=== PATIENT | male | born 1950 | race Caucasian/White ===

== ENCOUNTER → 2020-09-22 10:01 | Outpatient (BNVA) | payer MEDICARE, SELFPAY | PROVIDERS: PCP Nurse Practitioner Family; Visit Provider Nurse Practitioner | CPT/HCPCS: Q3014 ==

== ENCOUNTER 2020-10-08 09:34 | Outpatient (REF) | payer MEDICARE, SELFPAY ==
[2020-10-08 10:03] LABS: MANUAL DIFF FLAG NO
[2020-10-08 10:12] LABS: Basophils Percent Auto 0.6 % (0-2); Eosinophils Absolute Auto 0.2 X10*3/uL (0.0-0.4); Eosinophils Percent Auto 4.5 % (0-4); Hematocrit 28.9 % (42-52); Hemoglobin 9.5 g/dl (14.0-18.0); Imm Gran Abs Auto 0.07 X10*3/uL (0.00-0.03); Imm Gran Pct Auto 1.3 % (0.0-0.4); Lymphocytes Absolute Auto 1.6 X10*3/uL (1.2-4.9); Lymphocytes Percent Auto 29.3 % (20-40); Mean Corpuscular HGB Conc 32.9 g/dl (31.0-36.0); Mean Corpuscular Volume 91.2 fL (80-98); Mean Platelet Volume 10.1 fL (9.4-12.4); Monocytes Absolute Auto 0.4 X10*3/uL (0.1-1.2); Neutrophils Percent Auto 56.3 % (45-73); Platelet Count 149 X10*3/uL (160-400); Red Blood Count 3.17 X10*6/uL (4.60-5.80); Red Cell Distribution Width 13.5 % (11.0-16.0); White Blood Count 5.4 X10*3/uL (4.8-10.8)
[2020-10-08 11:12] LABS: Alanine Aminotransferase 10 U/L (0-40); Albumin Level 3.6 g/dL (3.5-5.0); Alkaline Phosphatase 67 U/L (39-117); Anion Gap 12 (12-20); Aspartate Amino Transferase 10 U/L (5-37); Bilirubin Total 0.3 mg/dL (0.0-1.0); Blood Urea Nitrogen 45 mg/dL (9-16); Calcium 8.1 mg/dL (8.4-10.2); Carbon Dioxide 24 mmol/L (22-29); Chloride 110 mmol/L (96-108); Estimated Glomerular Filt Rate 10; Glucose Random 146 mg/dL (60-115); Potassium 5.8 mmol/L (3.3-5.1); Sodium 140 mmol/L (135-145); Total Protein 6.5 g/dL (6.5-8.0)
== END 2020-10-08 09:35 | disposition home or self-care (01) ==
LOC: HO.LAB 09:34
PROVIDERS: Visit Provider Nurse Practitioner
DX: D12.6 Benign neoplasm of colon, unspecified (principal); Z12.11 Encounter for screening for malignant neoplasm of colon
CPT/HCPCS: 36415; 80053; 85025

== ENCOUNTER 2021-02-17 12:13 | Inpatient (IN) | payer MEDICARE, SELFPAY ==
--- NOTE | ~2021-02-17 | US_ITS ---
EXAMINATION: US RETROPERITONEAL LIMITED (RENAL ONLY) CLINICAL INFORMATION: Acute renal sufficiency assess for hydronephrosis. COMPARISON: None TECHNIQUE: Multiple sonographic views of the kidneys are obtained FINDINGS: RIGHT KIDNEY: 10.5 x 4.7 x 4.4 cm (SAG x AP x TRV). The kidney is normal in size, contour, and echogenicity. Renal cortical thickness is normal. No calculi or focal parenchymal lesions. No hydronephrosis. LEFT KIDNEY: 9.6 x 5.4 x 4.4 cm (SAG x AP x TRV). The kidney is normal in size, contour, and echogenicity. Renal cortical thickness is normal. No calculi or focal parenchymal lesions. No hydronephrosis. US/US renal BI IMPRESSION: Unremarkable renal ultrasound. No obstructive changes seen..
--- NOTE | ~2021-02-17 | US_ITS ---
EXAMINATION: US VENOUS ULTRASOUND WITH DOPPLER LOWER EXTREMITY, BILATERAL CLINICAL INFORMATION: Bilateral lower extremity swelling COMPARISON: None TECHNIQUE: Ultrasound of the deep veins is performed from the hip to the calf with compression sonography and color and pulse Doppler assessment. Spectral analysis with color-flow imaging is performed. FINDINGS: RIGHT: There is normal venous compression and respiratory variation and augmented flow. The visualized common femoral vein, superficial femoral vein, profunda femoral vein, popliteal vein, and the trifurcation region shows no evidence of deep venous thrombosis. There is no significant popliteal fossa cyst. LEFT: In the popliteal vein. There is some echogenic material adjacent to the wall more compatible with some chronic changes with possible calcification rather than acute DVT. The vessel is widely patent and this is not flow-limiting in the least. Otherwise, there are is normal venous compression and respiratory variation and augmented flow present throughout the remainder of the deep venous system. The visualized common femoral vein, superficial femoral vein, profunda femoral vein and the trifurcation region shows no evidence of deep venous thrombosis. There is no significant popliteal fossa cyst. If the patient's symptoms persist, followup ultrasound in 5 days 7 days might be of value to exclude proximal propagation from a non-visualized calf vein. US/US venous duplex LE IMPRESSION: 1. On the right, no DVT demonstrated in the lower extremity. 2. On the left, there is no evidence of acute DVT but there are some chronic mural changes present in the popliteal vein.
--- NOTE | ~2021-02-17 | XR_ITS ---
EXAMINATION: XR CHEST CLINICAL INFORMATION: Lower extremity swelling. Rule out CHF. COMPARISON: September 26, 2017 TECHNIQUE: 2 views of the chest were obtained. FINDINGS: No significant abnormality is noted involving the heart, lungs, mediastinum, bony thorax or soft tissues. XR/XR chest 2V IMPRESSION: No acute disease.
[2021-02-17 12:56] VITALS: BP 152/72; PULSE 64; RESP 18; TEMP 36.8; O2SAT 99; BMI 36.6
[2021-02-17 14:12] LABS: Hemoglobin 9.5 g/dl (14.0-18.0); Mean Corpuscular HGB Conc 33.9 g/dl (31.0-36.0); Mean Corpuscular Hemoglobin 30.5 pg (27.0-33.0); Platelet Count 162 X10*3/uL (160-400); Red Blood Count 3.11 X10*6/uL (4.60-5.80); Red Cell Distribution Width 13.8 % (11.0-16.0); White Blood Count 5.8 X10*3/uL (4.8-10.8)
[2021-02-17 14:50] LABS: Appearance Urine CLEAR; Color Urine YELLOW; Glucose Urine UA NEG (NEG); Leukocyte Esterase Urine NEG (NEG); Nitrite Urine NEG (NEG); Urine Blood TRACE (NEG); Urine Ketones NEG (NEG); Urine Protein 2+ MG/DL (NEG-TRACE)
[2021-02-17 14:50] LABS: Alanine Aminotransferase 8 U/L (0-40); Alkaline Phosphatase 73 U/L (39-117); Anion Gap 14 (12-20); Aspartate Amino Transferase 7 U/L (5-37); Bilirubin Direct 0.2 mg/dL (0.0-0.5); Bilirubin Total 0.5 mg/dL (0.0-1.0); Blood Urea Nitrogen 61 mg/dL (9-16); Calcium 8.8 mg/dL (8.4-10.2); Carbon Dioxide 19 mmol/L (22-29); Chloride 112 mmol/L (96-108); Creatinine Clr Calc Pharmacy 11.4; Estimated Glomerular Filt Rate 8; Glucose Random 136 mg/dL (60-115); Potassium 6.5 mmol/L (3.3-5.1); Sodium 138 mmol/L (135-145); Total Protein 7.1 g/dL (6.5-8.0)
--- NOTE | 2021-02-17 14:52 | ECG_ITS ---
Test Reason : ABNORMAL LABS Blood Pressure : / mmHG Vent. Rate : 069 BPM Atrial Rate : 069 BPM P-R Int : 128 ms QRS Dur : 096 ms QT Int : 402 ms P-R-T Axes : 020 -03 052 degrees QTc Int : 430 ms Normal sinus rhythm Normal ECG When compared with ECG of 15-JUL-2014 09:14, No significant change was found Referred By: Quiana Mcnulty Electronically Signed By:DAWSON MADSEN MD
[2021-02-17 14:56] LABS: RBC Urine 0-2 /HPF (0); Sperm Urine NOTED; WBC Urine 0 /HPF (0-4)
--- NOTE | 2021-02-17 15:09 | ED_ITS ---
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 Per patient he has had some lower extremity swelling and generalized malaise and so had outpatient labs done by his primary care doctor 3 days ago. He was called this morning today and told his labs are abnormal to go to the emergency department. He does have a past medical history of chronic kidney disease and creatinine has been steadily increasing with his last creatinine 5.54 and BUN 45 on 10/08/2020. Patient denies any chest pain, shortness of breath. No urinary symptoms, fevers or chills. Related Data Home Medications Medication Instructions Recorded Confirmed acetaminophen 325 mg tablet 325 mg PO Q4H PRN 09/22/20 02/17/21 albuterol sulfate 90 mcg/actuation 2 puff INHALATION QID PRN 09/22/20 02/17/21 aerosol inhaler amlodipine 10 mg tablet 10 mg PO BEDTIME 09/22/20 02/17/21 aspirin 81 mg tablet,delayed 81 mg PO QAM 09/22/20 02/17/21 release atorvastatin 10 mg tablet 10 mg PO BEDTIME 09/22/20 02/17/21 cholecalciferol (vitamin D3) 50 50 mcg PO DAILY 09/22/20 02/17/21 mcg (2,000 unit) tablet ferrous sulfate 325 mg (65 mg 325 mg PO DAILY 09/22/20 02/17/21 iron) tablet fluticasone propionate 50 2 spray INTRANASAL DAILY PRN 09/22/20 02/17/21 mcg/actuation nasal spray,suspension insulin detemir U-100 100 unit/mL 25 unit SUBCUT BEDTIME 09/22/20 02/17/21 subcutaneous solution losartan 100 mg tablet 100 mg PO DAILY 09/22/20 02/17/21 tamsulosin 0.4 mg capsule 0.4 mg PO BEDTIME 09/22/20 02/17/21 carvedilol 1 tab PO BID 02/17/21 02/17/21 furosemide 1 tab PO QAM 02/17/21 02/17/21 Allergies Allergy/AdvReac Type Severity Reaction Status Date / Time No Known Allergies Allergy Verified 02/17/21 12:56 [No Known Allergies*] Review of Systems Review of Systems: Yes all other systems are reviewed and are negative Constitutional: Constitutional: Reports no additional constitutional complaints, Denies body ache(s), Denies chills, Reports fatigue, Denies fever(s), Denies headache(s) and Denies weakness Eyes: Eyes: Reports no additional eye complaints and Denies change in vision ENT: Reports system reviewed and no additional complaints, except as documented, Denies dizziness, Denies headache(s), Denies nasal congestion, Denies nasal discharge and Denies neck pain Cardiovascular: Cardiovascular: Reports no additional cardiovascular complaints, Denies chest pain, Reports leg edema and Denies dyspnea Respiratory: Respiratory: Reports no additional respiratory complaints, Denies cough and Denies dyspnea Gastrointestinal: Gastrointestinal: Reports no additional gastrointestinal complaints, Denies abdominal pain, Denies diarrhea, Denies nausea and Denies vomiting Genitourinary: Genitourinary: Denies urinary incontinence Musculoskeletal: Musculoskeletal: Reports no additional musculoskeletal complaints, Denies back pain, Denies arthralgias, Denies joint swelling, Denies neck pain, Denies numbness and Denies tingling Integumentary/Breasts: Skin/Breast: Reports system reviewed and no additional complaints, except as docu and Denies rash Neurologic: Reports system reviewed and no additional complaints, except as documented, Denies Abnormal speech present, Denies dizziness, Denies headache(s), Denies numbness, Denies tingling and Denies weakness Endocrine: Endocrine: Reports fatigue PMFSH Past Medical History Attestation statement: The following information was validated with the patient. Source: old records reviewed and nursing notes reviewed Medical History Asthma Diabetes Hypertension Kidney disease Surgical History Hx of colonoscopy Family History Family History Sister Diabetes Social History Social History Alcohol intake: current Alcohol intake frequency: a few times a month Alcohol type: beer Advance Directives: No Advance Directives Information Provided: No Physical Exam Vital Signs: Vital Signs: Last Vital Signs Temp 98.2 F 02/17/21 12:56 Pulse 69 02/17/21 15:34 Resp 16 02/17/21 15:34 BP 162/89 H 02/17/21 15:34 Pulse Ox 99 02/17/21 15:34 Body Mass Index 36.6 Const: General: cooperative, healthy appearing, comfortable and no acute distress Orientation/consciousness: patient oriented x3 Limitations: no limitations HENMT: Head: Yes normal to inspection Ears: hearing grossly normal bilaterally General nose exam: Normal external nose present Face and sinus: Yes normal facial exam Mouth: Normal oral and palatal mucosa present Throat: Yes posterior oropharynx normal Eyes: General: appearance normal, both eyes and all related structures Pupils: Equal, round and reactive pupils present Neck: Neck: Yes normal visual inspection Chest: Chest palpation & inspection: normal inspection of the chest Resp: Effort & Inspection: normal respiratory effort Auscultation: clear to auscultation bilaterally Cardio: Rate: regular rate Rhythm: regular rhythm Peripheral pulses: Peripheral pulses 2+ throughout GI: Inspection: Yes normal to inspection Palpation (GI): Soft to palpation and nontender Auscultation: normal bowel sounds Back/Spine/Pelvis: Thoracic/Lumbar Spine: thoracic and lumbar spine normal to inspection Skin: General skin exam: no rashes or lesions noted Neuro: General: patient oriented x3, no focal motor deficits and normal sensation to monofilament Cranial nerves: Yes Equal, round and reactive pupils present Cognition (Neuro): normal cognition Speech: No Abnormal speech present Gait exam (Neuro): Normal gait present Motor exam (neuro): 5/5 motor strength present throughout Extrem: General: Yes normal to inspection and Yes edema (Bilateral lower extremity swelling, nonpitting) Course Course Course Narrative: 70-year-old male here with abnormal labs with complaints of lower extremity swelling and fatigue for the last few weeks. Patient does have chronic kidney disease with steadily increasing creatinine over the last few years. 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 Ortiz and [facility]. His labs this morning show a creatinine of 6.64 and a BUN of 61 with a potassium of 6.5. Will plan for EKG, chest x-ray, UA, COVID screen. Will give insulin, dextrose, Kayexalate. Discussion with Nephrology will be needed. -anemia at baseline. Second call [phone] to nephrology 1705-spoke to Dr. Haas. Recommended additional 15 g of Kayexalate. Also requesting additional urine studies, renal ultrasound, 80 mg of IV Lasix, 1 L of D5W with 150 mEq of sodium bicarb at 125ml/hr x 1L, re-check BMP w/ coags 7pm. Likely combination worsening renal failure, mildly fluid overloaded however mild acidosis needing treatment. He will follow in AM. Call out to medicine to discuss. [id number] with Dr Felipe for admission. MDM - Recheck/Abnormal Lab/Rx Medical Records Attestation: I reviewed the patient's medical records. Lab Data Attestation: I reviewed the patient's lab results. Result diagrams: 02/17/21 14:04 02/17/21 14:04 Labs: Lab Results 02/17/21 02/17/21 02/17/21 Range/Units 14:04 14:04 14:45 WBC 5.8 (4.8-10.8) X10*3/uL RBC 3.11 L (4.60-5.80) X10*6/uL Hgb 9.5 L (14.0-18.0) g/dl Hct 28.0 L (42-52) % MCV 90.0 (80-98) fL MCH 30.5 (27.0-33.0) pg MCHC 33.9 (31.0-36.0) g/dl RDW 13.8 (11.0-16.0) % Plt Count 162 (160-400) X10*3/uL MPV 10.0 (9.4-12.4) fL Absolute Nucleated RBC 0.000 (0.0-0.012) X10*3/uL Nucleated RBC % (auto) 0.0 (0.0-0.2) /100WBC Sodium 138 (135-145) mmol/L Potassium 6.5 H* (3.3-5.1) mmol/L Chloride 112 H (96-108) mmol/L Carbon Dioxide 19 L (22-29) mmol/L Anion Gap 14 (12-20) BUN 61 H (9-16) mg/dL Creatinine 6.64 H* (0.5-1.4) mg/dL Estim Creat Clear Calc 11.4 Estimated GFR 8 POC Glucose (60-115) mg/dL Random Glucose 136 H (60-115) mg/dL Calcium 8.8 D (8.4-10.2) mg/dL Magnesium (1.6-2.6) mg/dL Total Bilirubin 0.5 (0.0-1.0) mg/dL Direct Bilirubin 0.2 (0.0-0.5) mg/dL AST 7 (5-37) U/L ALT 8 (0-40) U/L Alkaline Phosphatase 73 (39-117) U/L Troponin I High Sens (<3.5-35.0) ng/L B-Natriuretic Peptide (<100) pg/mL Total Protein 7.1 (6.5-8.0) g/dL Albumin 4.0 (3.5-5.0) g/dL Urine Color YELLOW Urine Appearance CLEAR Urine pH 6.0 (5.0-8.0) Ur Specific [place] 1.020 (1.005-1.025) Urine Protein 2+ H (NEG-TRACE) MG/DL Urine Glucose (UA) NEG (NEG) MG/DL Urine Ketones NEG (NEG) MG/DL Urine Blood TRACE (NEG) Urine Nitrite NEG (NEG) Ur Leukocyte Esterase NEG (NEG) Urine RBC 0-2 (0) /HPF Urine WBC 0 (0-4) /HPF Ur Squamous Epith Cells NONE /LPF Urine Bacteria NONE /LPF Urine Sperm NOTED COVID-19 (EDDIE) (Negative) COVID-19 Clin Com 02/17/21 02/17/21 02/17/21 Range/Units 15:24 15:24 15:24 WBC (4.8-10.8) X10*3/uL RBC (4.60-5.80) X10*6/uL Hgb (14.0-18.0) g/dl Hct (42-52) % MCV (80-98) fL MCH (27.0-33.0) pg MCHC (31.0-36.0) g/dl RDW (11.0-16.0) % Plt Count (160-400) X10*3/uL MPV (9.4-12.4) fL Absolute Nucleated RBC (0.0-0.012) X10*3/uL Nucleated RBC % (auto) (0.0-0.2) /100WBC Sodium (135-145) mmol/L Potassium (3.3-5.1) mmol/L Chloride (96-108) mmol/L Carbon Dioxide (22-29) mmol/L Anion Gap (12-20) BUN (9-16) mg/dL Creatinine (0.5-1.4) mg/dL Estim Creat Clear Calc Estimated GFR POC Glucose (60-115) mg/dL Random Glucose (60-115) mg/dL Calcium (8.4-10.2) mg/dL Magnesium 1.8 (1.6-2.6) mg/dL Total Bilirubin (0.0-1.0) mg/dL Direct Bilirubin (0.0-0.5) mg/dL AST (5-37) U/L ALT (0-40) U/L Alkaline Phosphatase (39-117) U/L Troponin I High Sens 15.7 (<3.5-35.0) ng/L B-Natriuretic Peptide 168 H (<100) pg/mL Total Protein (6.5-8.0) g/dL Albumin (3.5-5.0) g/dL Urine Color Urine Appearance Urine pH (5.0-8.0) Ur Specific [place] (1.005-1.025) Urine Protein (NEG-TRACE) MG/DL Urine Glucose (UA) (NEG) MG/DL Urine Ketones (NEG) MG/DL Urine Blood (NEG) Urine Nitrite (NEG) Ur Leukocyte Esterase (NEG) Urine RBC (0) /HPF Urine WBC (0-4) /HPF Ur Squamous Epith Cells /LPF Urine Bacteria /LPF Urine Sperm COVID-19 (EDDIE) Negative (Negative) COVID-19 Clin Com See Note 02/17/21 02/17/21 Range/Units 15:56 16:26 WBC (4.8-10.8) X10*3/uL RBC (4.60-5.80) X10*6/uL Hgb (14.0-18.0) g/dl Hct (42-52) % MCV (80-98) fL MCH (27.0-33.0) pg MCHC (31.0-36.0) g/dl RDW (11.0-16.0) % Plt Count (160-400) X10*3/uL MPV (9.4-12.4) fL Absolute Nucleated RBC (0.0-0.012) X10*3/uL Nucleated RBC % (auto) (0.0-0.2) /100WBC Sodium (135-145) mmol/L Potassium (3.3-5.1) mmol/L Chloride (96-108) mmol/L Carbon Dioxide (22-29) mmol/L Anion Gap (12-20) BUN (9-16) mg/dL Creatinine (0.5-1.4) mg/dL Estim Creat Clear Calc Estimated GFR POC Glucose 144 H 79 (60-115) mg/dL Random Glucose (60-115) mg/dL Calcium (8.4-10.2) mg/dL Magnesium (1.6-2.6) mg/dL Total Bilirubin (0.0-1.0) mg/dL Direct Bilirubin (0.0-0.5) mg/dL AST (5-37) U/L ALT (0-40) U/L Alkaline Phosphatase (39-117) U/L Troponin I High Sens (<3.5-35.0) ng/L B-Natriuretic Peptide (<100) pg/mL Total Protein (6.5-8.0) g/dL Albumin (3.5-5.0) g/dL Urine Color Urine Appearance Urine pH (5.0-8.0) Ur Specific [place] (1.005-1.025) Urine Protein (NEG-TRACE) MG/DL Urine Glucose (UA) (NEG) MG/DL Urine Ketones (NEG) MG/DL Urine Blood (NEG) Urine Nitrite (NEG) Ur Leukocyte Esterase (NEG) Urine RBC (0) /HPF Urine WBC (0-4) /HPF Ur Squamous Epith Cells /LPF Urine Bacteria /LPF Urine Sperm COVID-19 (EDDIE) (Negative) COVID-19 Clin Com Imaging Data Chest x-ray: Attestation: I personally reviewed and interpreted this imaging study as follows: Radiologist's impression: [address] [id number] ReportSigned Patient: Tato Montanez#: [id number]: 1950cct:[id number]/Sex: 70 / MADM Date: 02/17/21Loc: EDA[address] Dr: Ordering Physician: JOANNA ACHARYA NP Date of Service: 02/17/21 Procedure(s): XR chest 2V Accession Number(s): [id number] cc: JOANNA ACHARYA NP~ EXAMINATION: XR CHEST CLINICAL INFORMATION: Lower extremity swelling. Rule out CHF. COMPARISON: September 26, 2017 TECHNIQUE: 2 views of the chest were obtained. FINDINGS: No significant abnormality is noted involving the heart, lungs, mediastinum, bony thorax or soft tissues. XR/XR chest 2V IMPRESSION: No acute disease. ECG Data Attestation: I personally reviewed and interpreted this ECG as follows: ECG interpretation date: 02/17/21 ECG interpretation time: 15:43 Interpretation: Normal sinus rhythm with a rate of 69, normal WI, normal QRS, QT Discharge Plan Discharge Clinical Impression: Acute on chronic kidney failure, Acute hyperkalemia, Anemia Patient Disposition: Admitted As Inpatient
[2021-02-17] MEDS: Insulin Regular, Human 100 UNIT/ML 3 ML VIAL 10 UNIT IVPUSH (15:25)
[2021-02-17] MEDS: Sodium Polystyrene Sulfon/Sorb 15 GM/60 ML ORAL.SUSP 30 GM PO (15:28)
[2021-02-17 15:34] VITALS: BP 162/89; PULSE 69; RESP 16; O2SAT 99
--- NOTE | 2021-02-17 15:49 | PHA.MEDREC ---
Pharmacy Consult ? Medication Reconciliation Pharmacy has completed the medication reconciliation.
[2021-02-17 15:59] LABS: Glucose, Whole Blood 144 mg/dL (60-115)
[2021-02-17 16:08] LABS: Magnesium 1.8 mg/dL (1.6-2.6)
[2021-02-17 16:10] LABS: COVID-19 Test Negative (Negative)
[2021-02-17 16:14] LABS: B Type Natriuretic Peptide 168 pg/mL (<100); Troponin-I High Sensitivity 15.7 ng/L (<3.5-35.0)
[2021-02-17 17:02] LABS: Glucose, Whole Blood 79 mg/dL (60-115)
[2021-02-17] MEDS: Furosemide 100 MG/10 ML VIAL 80 MG IVPUSH (17:57)
[2021-02-17] MEDS: Sodium Polystyrene Sulfon/Sorb 15 GM/60 ML ORAL.SUSP PO (17:58)
[2021-02-17] MEDS: Sodium Bicarbonate 8.4% 150 MEQ in Dextrose 5 % 850 ML 125 MEQ IV (18:00)
[2021-02-17 18:22] LABS: Glucose, Whole Blood 129 mg/dL (60-115)
[2021-02-17 18:39] LABS: Creatinine Urine 73.81 mg/dL
[2021-02-17 18:48] VITALS: BP 141/81; PULSE 68; RESP 16; TEMP 36.6; O2SAT 99
[2021-02-17 18:52] LABS: Total Protein Urine Random 225 mg/dL (<12)
[2021-02-17 18:59] LABS: Prothrombin Time 11.4 SEC (9.9-13.0)
[2021-02-17 19:02] LABS: Partial Thromboplastin Time 31.3 SEC (24.1-38.0)
[2021-02-17 19:21] LABS: Anion Gap 13 (12-20); Blood Urea Nitrogen 63 mg/dL (9-16); Calcium 8.8 mg/dL (8.4-10.2); Carbon Dioxide 21 mmol/L (22-29); Chloride 110 mmol/L (96-108); Creatinine Clr Calc Pharmacy 10.8; Estimated Glomerular Filt Rate 8; Glucose Random 136 mg/dL (60-115); Sodium 138 mmol/L (135-145)
[2021-02-17 19:22] LABS: Troponin-I High Sensitivity 14.7 ng/L (<3.5-35.0)
[2021-02-17 19:35] VITALS: BP 170/80; PULSE 76; RESP 16; O2SAT 98
[2021-02-17 19:53] VITALS: BP 168/85; PULSE 70; RESP 14; TEMP 36.3; O2SAT 99
[2021-02-17 21:03] VITALS: BP 150/82; PULSE 71; RESP 15; TEMP 36.8; O2SAT 99
--- NOTE | 2021-02-17 21:12 | PM.IMHP ---
History of Present Illness Date of Service: 02/17/21 Chief Complaint: Generalized weakness 70-year-old male with a past medical history of hypertension, hyperlipidemia, diabetes, chronic kidney disease, perform neuropathy, presented to the hospital with a chief complaint of generalized weakness. Patient reported that for the past few weeks he has been having generalized weakness and also noted to have swelling in his legs. Reports intermittent dizziness. Patient reported that he had routine blood work done today in the clinic; noted to have elevated potassium and subsequently sent to the hospital for further evaluation. Denies any chest pain or palpitations. Denies any numbness tingling. Denies any fever chills cough. Denies any recent travel or sick sick contacts. Review of all other systems is negative except mentioned above ER course: ER team noted the patient had potassium of 6.0 and creatinine of 6.94; ER team spoke to Nephrology- Dr. Haas. Recommended additional 15 g of Kayexalate. Also requesting additional urine studies, renal ultrasound, 80 mg of IV Lasix, 1 L of D5W with 150 mEq of sodium bicarb at 125ml/hr x 1L. Admitted to the hospital for [facility] Medical History Asthma Diabetes Hypertension Kidney disease Family History Sister Diabetes Surgical History Hx of colonoscopy Social History Household Members: Friend(s) Housing: Apartment Do you presently have visiting nurse or other home services: No Alcohol intake: current Alcohol intake frequency: a few times a month Alcohol type: beer Patient Tobacco Use Status: Never used Tobacco e-Cigarette/Vaping Use: Never Used service: No Current occupational status: unemployed Meds Allergies Allergy/AdvReac Type Severity Reaction Status Date / Time No Known Allergies Allergy Verified 02/17/21 12:56 [No Known Allergies*] Active Medications: Current Medications Generic Name Dose Route Start Last Admin Trade Name Freq PRN Reason Stop Dose Admin Carvedilol 12.5 mg 02/18/21 09:00 Carvedilol 12.5 Mg Tablet PO BID MAYA Protocol Sodium Bicarbonate 150 meq/ 1,000 mls @ 125 mls/hr 02/17/21 18:00 02/17/21 18:00 Dextrose IV 02/18/21 01:59 125 mls/hr .Q8H ONE Administration Melatonin 6 mg 02/17/21 21:07 Melatonin 3 Mg Tablet PO BEDTIME PRN Insomnia Pharmacy Consult 1 each 02/17/21 15:08 Consult Rx Perform Med Rec MISCELLANE ONCE PRN Consult order Senna 17.2 mg 02/17/21 21:07 Sennosides 8.6 Mg Tablet PO BEDTIME PRN Constipation Sodium Chloride 3 ml 02/18/21 00:00 0.9 % Sodium Chloride Flush 3 Ml Syringe IVFLUSH QSHIFT [facility] Home Medications Medication Instructions Recorded Confirmed Last Taken Type furosemide 40 mg tablet 1 tab PO QAM 02/17/21 02/17/21 02/17/21 History Physical Exam Vital Signs and Narrative: Vital Signs: Last Vital Signs Temp 97.4 F 02/17/21 19:53 Pulse 70 02/17/21 19:53 Resp 14 02/17/21 19:53 BP 168/85 H 02/17/21 19:53 Pulse Ox 99 02/17/21 19:53 Body Mass Index 36.6 Gen: Appears be in no acute distress HEENT: NCAT, Moist mucosa. Pulmonary: Vesicular breath sounds, fair air entry CVS: Normal S1-S2 Abdomen: BS+, Soft, Nontender Extremities: Warm well perfused; 3+ pitting edema noted Neuro: Alert and awake. Results Labs CBC and Chem 7: 02/20/21 05:55 02/20/21 05:55 Labs: Laboratory Results - last 24 hr 02/17/21 02/17/21 02/17/21 14:04 14:04 14:45 MCV 90.0 MCH 30.5 MCHC 33.9 RDW 13.8 Plt Count 162 MPV 10.0 Absolute Nucleated RBC 0.000 Nucleated RBC % (auto) 0.0 PT INR APTT Anion Gap 14 Estim Creat Clear Calc 11.4 Estimated GFR 8 POC Glucose Random Glucose 136 H Calcium 8.8 D Magnesium Total Bilirubin 0.5 Direct Bilirubin 0.2 AST 7 ALT 8 Alkaline Phosphatase 73 Troponin I High Sens B-Natriuretic Peptide Total Protein 7.1 Albumin 4.0 Urine Color YELLOW Urine Appearance CLEAR Urine pH 6.0 Ur Specific [place] 1.020 Urine Protein 2+ H Urine Glucose (UA) NEG Urine Ketones NEG Urine Blood TRACE Urine Nitrite NEG Ur Leukocyte Esterase NEG Urine RBC 0-2 Urine WBC 0 Ur Squamous Epith Cells NONE Urine Bacteria NONE Urine Sperm NOTED U Random Total Protein Ur Random Sodium Urine Creatinine COVID-19 (EDDIE) COVID-19 Clin Com 02/17/21 02/17/21 02/17/21 15:24 15:24 15:24 MCV MCH MCHC RDW Plt Count MPV Absolute Nucleated RBC Nucleated RBC % (auto) PT INR APTT Anion Gap Estim Creat Clear Calc Estimated GFR POC Glucose Random Glucose Calcium Magnesium 1.8 Total Bilirubin Direct Bilirubin AST ALT Alkaline Phosphatase Troponin I High Sens 15.7 B-Natriuretic Peptide 168 H Total Protein Albumin Urine Color Urine Appearance Urine pH Ur Specific [place] Urine Protein Urine Glucose (UA) Urine Ketones Urine Blood Urine Nitrite Ur Leukocyte Esterase Urine RBC Urine WBC Ur Squamous Epith Cells Urine Bacteria Urine Sperm U Random Total Protein Ur Random Sodium Urine Creatinine COVID-19 (EDDIE) Negative COVID-19 Clin Com See Note 02/17/21 02/17/21 02/17/21 15:56 16:26 18:08 MCV MCH MCHC RDW Plt Count MPV Absolute Nucleated RBC Nucleated RBC % (auto) PT INR APTT Anion Gap Estim Creat Clear Calc Estimated GFR POC Glucose 144 H 79 Random Glucose Calcium Magnesium Total Bilirubin Direct Bilirubin AST ALT Alkaline Phosphatase Troponin I High Sens B-Natriuretic Peptide Total Protein Albumin Urine Color Urine Appearance Urine pH Ur Specific [place] Urine Protein Urine Glucose (UA) Urine Ketones Urine Blood Urine Nitrite Ur Leukocyte Esterase Urine RBC Urine WBC Ur Squamous Epith Cells Urine Bacteria Urine Sperm U Random Total Protein 225 H Ur Random Sodium 60.0 Urine Creatinine 73.81 COVID-19 (EDDIE) COVID-19 Clin Com 02/17/21 02/17/21 02/17/21 18:18 18:47 18:47 MCV MCH MCHC RDW Plt Count MPV Absolute Nucleated RBC Nucleated RBC % (auto) PT 11.4 INR 1.0 APTT 31.3 Anion Gap Estim Creat Clear Calc Estimated GFR POC Glucose 129 H Random Glucose Calcium Magnesium Total Bilirubin Direct Bilirubin AST ALT Alkaline Phosphatase Troponin I High Sens 14.7 B-Natriuretic Peptide Total Protein Albumin Urine Color Urine Appearance Urine pH Ur Specific [place] Urine Protein Urine Glucose (UA) Urine Ketones Urine Blood Urine Nitrite Ur Leukocyte Esterase Urine RBC Urine WBC Ur Squamous Epith Cells Urine Bacteria Urine Sperm U Random Total Protein Ur Random Sodium Urine Creatinine COVID-19 (EDDIE) COVID-19 Clin Com 02/17/21 18:47 MCV MCH MCHC RDW Plt Count MPV Absolute Nucleated RBC Nucleated RBC % (auto) PT INR APTT Anion Gap 13 Estim Creat Clear Calc 10.8 Estimated GFR 8 POC Glucose Random Glucose 136 H Calcium 8.8 Magnesium Total Bilirubin Direct Bilirubin AST ALT Alkaline Phosphatase Troponin I High Sens B-Natriuretic Peptide Total Protein Albumin Urine Color Urine Appearance Urine pH Ur Specific [place] Urine Protein Urine Glucose (UA) Urine Ketones Urine Blood Urine Nitrite Ur Leukocyte Esterase Urine RBC Urine WBC Ur Squamous Epith Cells Urine Bacteria Urine Sperm U Random Total Protein Ur Random Sodium Urine Creatinine COVID-19 (EDDIE) COVID-19 Clin Com Imaging Radiologist's Impressions: Impressions Chest X-Ray 02/17/21 15:22 IMPRESSION: No acute disease. Renal Ultrasound 02/17/21 17:28 IMPRESSION: Unremarkable renal ultrasound. No obstructive changes seen.. Assessment and Plan (1) Acute hyperkalemia: Status: Acute 70-year-old male with a past medical history of hypertension, diabetes, chronic kidney disease, asthma presented to the hospital with a chief complaint of abnormal labs, noted to have elevated potassium on the routine labs done this morning; sent to the ER for further evaluation. Patient complains of generalized weakness and peripheral edema. Generalized weakness: Likely the setting of worsening renal function. Supportive care. hyperkalemia: EKG showed no changes. Patient received insulin dextrose and Kayexalate; also has sodium bicarb running. Will repeat BMP. Felipe on CKD: Patient has several questions gradually worsening. Nephrology consult was made aware. Peripheral edema: Patient reports gradually worsening bilateral pedal edema for the past few weeks. Likely in setting of renal disease. Will also obtain echocardiogram. Diabetes: Insulin sliding scale DVT prophylaxis:[facility] Code status: full code Home medications: Patient unsure of his home medication regimen. Will defer to the a.m. team to confirm the home medications with the patient's PCP. Quality Stroke Does the patient have a stroke diagnosis?: No VTE Prior VTE?: No VTE Risk Level:: Medical - moderate - high VTE Device Contraindication: N/A - Device Ordered VTE Drug Contraindication: Treatment Not Indicated
[2021-02-17 21:57] LABS: Anion Gap 15 (12-20); Blood Urea Nitrogen 61 mg/dL (9-16); Calcium 8.8 mg/dL (8.4-10.2); Carbon Dioxide 20 mmol/L (22-29); Chloride 110 mmol/L (96-108); Creatinine Clr Calc Pharmacy 10.9; Estimated Glomerular Filt Rate 8; Glucose Random 150 mg/dL (60-115); Potassium 5.1 mmol/L (3.3-5.1); Sodium 140 mmol/L (135-145)
[2021-02-17] MEDS: Heparin Sodium,Porcine 5,000 UNIT/ML VIAL 5000 UNIT SUBCUT (22:51)
[2021-02-18] VITALS (8 sets, daily range): BP systolic 154–183; BP diastolic 72–84; PULSE 70–80; RESP 12–18; TEMP 36.1–36.7; O2SAT 93–100; BMI 36.6
--- NOTE | 2021-02-18 00:05 | CONS_ITS ---
DATE OF SERVICE: REASON FOR CONSULTATION: Consult requested by the Emergency Room team to evaluate and help in management of patient with severe renal insufficiency and hyperkalemia. HISTORY OF PRESENT ILLNESS: The patient is a 70-year-old male with past medical history of chronic kidney disease stage 3/4, baseline history of asthma, noninsulin dependent diabetes mellitus,, who presented to the hospital with complaints of generalized weakness. He also had abnormal labs, which was done by the PCP. The patient complained of lower extremity edema and generalized malaise. The patient had labs 3 days ago, but was called this morning and was advised to go into the ER. Creatinine has been steadily decreasing with the last creatinine in September around 5.5. 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 He did not have any urinary symptoms, fever, or chills. He did not have any history of NSAID use. Has no prostate problems. No dysuria, urgency of urination, and frequent urination. REVIEW OF SYSTEMS: As noted above. Other system are reviewed negative. MEDICATIONS: At home include atorvastatin, cholecalciferol, Tylenol, albuterol, amlodipine, ferrous sulfate, fluticasone spray, insulin, losartan 100 mg daily, Flomax 0.4 mg at bedtime, carvedilol, furosemide. ALLERGIES: PATIENT HAS NO KNOWN DRUG ALLERGIES. PERSONAL AND SOCIAL HISTORY: The patient currently takes alcohol frequently, does not smoke. FAMILY HISTORY: History of diabetes. PAST SURGICAL HISTORY: History of colonoscopy in the past. PHYSICAL EXAMINATION: GENERAL: Patient is seen resting in the ER bed. Awake, alert, no significant distress. Able to ambulate. VITAL SIGNS: Blood pressure 162/89, pulse 69, afebrile. HEENT: Pupils equal bilaterally and reactive to light. Positive jugular venous distention is noted. Neck was supple. No thyromegaly was noted. Mucosa was moist. There is no scleral icterus or conjunctival congestion. CARDIOVASCULAR SYSTEM: S1, S2 without rub or murmur. RESPIRATORY SYSTEM: Air entry decreased in bases with basilar crepitation. ABDOMEN: Obese, soft. Bowel sounds normal. EXTREMITIES: 2+ edema bilaterally. There is no peripheral cyanosis or clubbing. NEURO: Essentially nonfocal. LABS: Done today: WBC is 5.8, hemoglobin 9.5, hematocrit 28, platelets 162. INR 1.0. Sodium 138, potassium 6.0, chloride 110, CO2 of 21, BUN 63, creatinine 6.95. Estimated GFR was 10.8, glucose 136, calcium 8.8. Troponin 14.4. Urinalysis shows yellow urine is clear, specific gravity 1.020, pH 6.0, protein 2+, glucose negative, ketone negative, rbc's 0 to 2, wbc 0. COVID testing is negative. IMPRESSION: 1. 70-year-old male with acute kidney injury superimposed on chronic kidney disease versus progressive chronic kidney disease. Review of patient's lab shows patient's creatinine has been as high as 3.28 in 2018. In September, his creatinine was 4.20 and presently around 6.95. Obstruction needs to be ruled out on this patient. I doubt the patient has acute GN/interstitial disease at this juncture. 2. Likely chronic kidney disease stage 4 at baseline in the setting of longstanding diabetes and hypertension. 3. Hyperkalemia due to acute kidney injury, chronic kidney disease, use of angiotensin receptor jone losartan, probably high potassium diet. 4. Mild metabolic acidosis, which is non anion gap type in the setting of renal failure. 5. Type 2 diabetes mellitus. 6. Hypertension. RECOMMENDATIONS: patient is hyperkalemic and I agree with medical management for his hyperkalemia. I suggested the ER team to start the patient on IV fluids, D5 water with 150 mEq of sodium bicarb at 125 mL/h x1 L, which will help with improving the hyperkalemia and the acidosis. I have also advised them to give 1 dose of IV Lasix 80 mg IV push to help with volume reduction. I have advised the ER team to get a renal ultrasound to assess size of the kidney and to rule out obstruction. I recommend holding off on losartan given worsening renal function. He can use amlodipine, hydralazine, and clonidine patch as needed. I would continue the present dose of Flomax. If the patient's renal function does not improve in the next 24 to 48 hours, we need to consider starting him on renal replacement therapy. Thank you for allowing me to participate in medical management of the patient. MD BARBRA Marti/MONA / [id number] [facility] CENTERAnali
[2021-02-18] MEDS: 0.9 % Sodium Chloride Flush 3 ML SYRINGE IVFLUSH ×3 (02:28→21:01)
[2021-02-18] MEDS: Heparin Sodium,Porcine 5,000 UNIT/ML VIAL 5000 UNIT SUBCUT ×3 (06:39→21:00)
[2021-02-18 06:43] LABS: MANUAL DIFF FLAG NO
[2021-02-18 06:55] LABS: Basophils Percent Auto 0.6 % (0-2); Eosinophils Absolute Auto 0.2 X10*3/uL (0.0-0.4); Eosinophils Percent Auto 4.4 % (0-4); Hematocrit 27.2 % (42-52); Hemoglobin 9.2 g/dl (14.0-18.0); Imm Gran Abs Auto 0.05 X10*3/uL (0.00-0.03); Lymphocytes Absolute Auto 1.2 X10*3/uL (1.2-4.9); Lymphocytes Percent Auto 22.1 % (20-40); Mean Corpuscular HGB Conc 33.8 g/dl (31.0-36.0); Mean Corpuscular Hemoglobin 30.3 pg (27.0-33.0); Mean Corpuscular Volume 89.5 fL (80-98); Mean Platelet Volume 10.4 fL (9.4-12.4); Monocytes Absolute Auto 0.4 X10*3/uL (0.1-1.2); Monocytes Percent Auto 7.7 % (2-11); Neutrophils Absolute Auto 3.4 X10*3/uL (2.0-8.3); Neutrophils Percent Auto 64.2 % (45-73); Platelet Count 152 X10*3/uL (160-400); Red Blood Count 3.04 X10*6/uL (4.60-5.80); Red Cell Distribution Width 13.8 % (11.0-16.0); White Blood Count 5.2 X10*3/uL (4.8-10.8)
[2021-02-18 07:18] LABS: Anion Gap 13 (12-20); Blood Urea Nitrogen 60 mg/dL (9-16); Calcium 8.6 mg/dL (8.4-10.2); Carbon Dioxide 23 mmol/L (22-29); Chloride 109 mmol/L (96-108); Creatinine Clr Calc Pharmacy 11.3; Estimated Glomerular Filt Rate 8; Glucose Random 132 mg/dL (60-115); Sodium 140 mmol/L (135-145)
--- NOTE | 2021-02-18 07:30 | CA_ITS ---
Transthoracic Echocardiogram Patient (Last, First, Middle): Babatunde Montanez, Gender: Male Date of : 1950 Age: 70 Procedure Date: 02/18/2021 Procedure Type: Transthoracic Echocardiogram Location: [facility] Height: 165.1 cm Weight: 99.79 kg BSA: 2.06 m2 Heart Rate: bpm BP: 154 / 72 mmHg Special Library Librarian: Referring MD: Dom Dailey MD Quantitative Researcher: Lang Mcdonald MD Symptoms: pedal edema Study Quality: Fair ECG Rhythm: Sinus Conclusions: - 1. Normal LV systolic function with impaired relaxation filling pressure with regional wall motion abnormality 2. Mild mitral regurgitation 3. Normal RV systolic pressure 4. No pericardial effusion Findings Procedure Information Contrast agent, definity, is being given per protocol without apparent complications. The patient receives contrast. Left Ventricle Normal left ventricular size, thickness, and systolic function. The visually estimated ejection fraction is between 60-65%. Spectral Doppler is indicative of an impaired relaxation filling pattern. E/E prime ratio is between 8 and 15 consistent with indeterminate filling pressures. Wall Motion Rest Echo Findings The basal inferior and basal inferoseptal segments are hypokinetic. All other scored wall segments showed normal motion. Right Ventricle Normal right ventricular cavity size and systolic function. Atria The left atrium is mildly dilated. The right atrium is normal in size. Aortic Valve Normal aortic valve structure and function. There is no aortic valve stenosis. There is no aortic valve regurgitation. Mitral Valve There is mild posterior mitral leaflet thickening. There is mild mitral valve regurgitation. There is no mitral valve stenosis. Pulmonic Valve The pulmonic valve was not well visualized. Tricuspid Valve Likely normal tricuspid valve structure and function. There is trace tricuspid valve regurgitation. The right ventricular systolic pressure is normal. The right ventricular systolic pressure is 28 mmHg. Normal right atrial pressure. There is no evidence of pulmonary hypertension. Great Vessels All visible segments of the aorta are normal in size. The pulmonary artery was not well visualized. Venous The inferior vena cava is normal in size and collapses greater than 50% with inspiration. Pericardium/Pleural There is no evidence of pericardial effusion. Prior Study Comparison No prior study available for comparison. Measurements 2D Linear Measurements IVSd: 1.32 0.6-0.9/0.6-1.0 cm LVIDd: 6.06 3.9-5.3/4.2-5.9 cm LVIDd Index: 2.94 2.4-3.2/2.2-3.1 cm/m2 LVIDs: 4.65 2.0-3.6 cm LVPWd: 1.26 0.7-1.1 cm Ao Root: 3.50 2.1-3.5 cm LA Diam: 4.50 2.7-3.8/3.0-4.0 cm LAIDs Index: 2.18 1.5-2.3 cm/m2 LV Mass: 439.32 67-162/88-224 g LV Mass Index: 213.26 43-95/49-115 g/m2 LVOT Diam: 2.20 3.0+(-)1.3 cm 2D Systolic Function EF 4C: 59.60 >55% EF 2C: 63.70 >55% EF BiP: 63.50 >55% Mitral Valve MV Pk E: 0.83 MV PK A: 1.07 MV Decel Time: 249.00 E/A: 0.80 E'Lateral: 8.05 E'Medial: 4.90 E/E' Med: 17.00 E/E' Lat: 10.30 PHT: 73.00 MVA PHT: 3.01 Decel [place]: 3.33 Aortic Valve AoV Pk [place]: 1.65 AoV Mn Marino: 1.04 AoV VTI: 0.43 AoV Pk Grad: 11.00 Aov Mn Grad: 5.00 ADEOLA Cont.VTI: 2.25 LVOT LVOT Pk [place]: 0.97 LVOT Mn [place]ino: 0.62 LVOT VTI: 0.25 LVOT Pk Grad: 4.00 LVOT Mn Grad: 2.00 LVOT Diam: 2.20 LVOT Area: 3.80 Diastolic Function MV Pk E: 0.83 MV Pk A: 1.07 E/A: 0.80 E'Medial: 4.90 E/E' Med: 17.00 E' Laterial: 8.05 E/E' Lat: 10.30 Tricuspid Valve TR Pk [place]: 2.23 TR Pk Grad: 20.00 RA Press: 8.00 RVSP: 28.00 Great Vessels Aorta Ao Root-2D: 3.50 2.0-3.7 cm Pulmonary Valve PV Pk [place]: 1.15 Peak PV Grad: 5.00 Updated in Other Vendor System with Status of Final Lang Mcdonald MD electronically signed on 02/19/2021 9:14:11 AM with status of Final
[2021-02-18 07:33] LABS: Glucose, Whole Blood 131 mg/dL (60-115)
[2021-02-18] MEDS: carvediloL 12.5 MG TABLET PO ×2 (09:00→21:00)
[2021-02-18 12:07] LABS: Glucose, Whole Blood 137 mg/dL (60-115)
--- NOTE | 2021-02-18 16:03 | MHC.CM.PN ---
CM ATTEMPTED TO SEE PT IN ED BED 01 ALONG WITH [facility] [employer] AND C[employer]. PT ALREADY OFF UNIT. CM WILL REVISIT TOMORROW
[2021-02-18 16:24] LABS: Glucose, Whole Blood 176 mg/dL (60-115)
[2021-02-18] MEDS: Insulin Lispro 100 UNIT/ML 3 ML VIAL SUBCUT (16:45)
--- NOTE | 2021-02-18 18:07 | P.PNIM_ITS ---
Subjective Subjective Date of Service: 02/19/21 Interval History: Generalized weakness, hyperkalemia Review of Systems Patient denies any chest pain or shortness of breath or abdominal pain or fever or chills or nausea or vomitng Physical Exam Vital Signs: Vital Signs: Last Vital Signs Temp 97 F 02/18/21 15:59 Pulse 74 02/18/21 15:59 Resp 16 02/18/21 15:59 BP 158/82 H 02/18/21 16:11 Pulse Ox 100 02/18/21 15:59 Body Mass Index 36.6 Physical exam: Gen: Appears be in no acute distress HEENT: NCAT, Moist mucosa. Pulmonary: Vesicular breath sounds, fair air entry CVS: Normal S1-S2 Abdomen: BS+, Soft, Nontender Extremities: Warm well perfused; leg edema Neuro: Alert and awake. Objective Data Current Medications Generic Name Dose Route Start Last Admin Trade Name Freq PRN Reason Stop Dose Admin Carvedilol 12.5 mg 02/18/21 09:00 02/18/21 09:00 Carvedilol 12.5 Mg Tablet PO 12.5 mg BID [facility] Administration Protocol Heparin Sodium (Porcine) 5,000 unit 02/17/21 21:30 02/18/21 13:48 Heparin Sodium,Porcine 5,000 Unit/Ml Vial SUBCUT 5,000 unit Q8H [facility] Administration Insulin Human Lispro 0 unit 02/18/21 07:30 02/18/21 16:45 Insulin Lispro 100 Unit/Ml 3 Ml Vial SUBCUT 2 unit QIDACHS [facility] Administration Protocol Melatonin 6 mg 02/17/21 21:07 Melatonin 3 Mg Tablet PO BEDTIME PRN Insomnia Pharmacy Consult 1 each 02/17/21 15:08 Consult Rx Perform Med Rec MISCELLANE ONCE PRN Consult order Senna 17.2 mg 02/17/21 21:07 Sennosides 8.6 Mg Tablet PO BEDTIME PRN Constipation Sodium Chloride 3 ml 02/18/21 00:00 02/18/21 16:08 0.9 % Sodium Chloride Flush 3 Ml Syringe IVFLUSH 3 ml QSHIFT [facility] Administration Labs CBC & Chem 7: 02/18/21 06:24 02/19/21 06:01 Labs: Laboratory Results - last 24 hr 02/17/21 02/17/21 02/17/21 18:08 18:18 18:47 WBC RBC Hgb Hct MCV MCH MCHC RDW Plt Count MPV Immature Gran % (Auto) Neut % (Auto) Lymph % (Auto) [place] % (Auto) Eos % (Auto) Baso % (Auto) Lymph # (Auto) [place] # (Auto) Eos # (Auto) Baso # (Auto) Abs Immat Gran (auto) Absolute Neuts (auto) Absolute Nucleated RBC Nucleated RBC % (auto) PT INR APTT Sodium Potassium Chloride Carbon Dioxide Anion Gap BUN Creatinine Estim Creat Clear Calc Estimated GFR POC Glucose 129 H Random Glucose Calcium Troponin I High Sens 14.7 U Random Total Protein 225 H Ur Random Sodium 60.0 Urine Creatinine 73.81 02/17/21 02/17/21 02/17/21 18:47 18:47 21:27 WBC RBC Hgb Hct MCV MCH MCHC RDW Plt Count MPV Immature Gran % (Auto) Neut % (Auto) Lymph % (Auto) [place] % (Auto) Eos % (Auto) Baso % (Auto) Lymph # (Auto) [place] # (Auto) Eos # (Auto) Baso # (Auto) Abs Immat Gran (auto) Absolute Neuts (auto) Absolute Nucleated RBC Nucleated RBC % (auto) PT 11.4 INR 1.0 APTT 31.3 Sodium 138 140 Potassium 6.0 H* 5.1 Chloride 110 H 110 H Carbon Dioxide 21 L 20 L Anion Gap 13 15 BUN 63 H 61 H Creatinine 6.95 H* 6.93 H* Estim Creat Clear Calc 10.8 10.9 Estimated GFR 8 8 POC Glucose Random Glucose 136 H 150 H Calcium 8.8 8.8 Troponin I High Sens U Random Total Protein Ur Random Sodium Urine Creatinine 02/18/21 02/18/21 02/18/21 06:24 06:24 07:24 WBC 5.2 RBC 3.04 L Hgb 9.2 L Hct 27.2 L MCV 89.5 MCH 30.3 MCHC 33.8 RDW 13.8 Plt Count 152 L MPV 10.4 Immature Gran % (Auto) 1.0 H Neut % (Auto) 64.2 Lymph % (Auto) 22.1 [place] % (Auto) 7.7 Eos % (Auto) 4.4 H Baso % (Auto) 0.6 Lymph # (Auto) 1.2 [place] # (Auto) 0.4 Eos # (Auto) 0.2 Baso # (Auto) 0.0 Abs Immat Gran (auto) 0.05 H Absolute Neuts (auto) 3.4 Absolute Nucleated RBC 0.000 Nucleated RBC % (auto) 0.0 PT INR APTT Sodium 140 Potassium 5.0 Chloride 109 H Carbon Dioxide 23 Anion Gap 13 BUN 60 H Creatinine 6.66 H* Estim Creat Clear Calc 11.3 Estimated GFR 8 POC Glucose 131 H Random Glucose 132 H Calcium 8.6 Troponin I High Sens U Random Total Protein Ur Random Sodium Urine Creatinine 02/18/21 02/18/21 12:03 16:12 WBC RBC Hgb Hct MCV MCH MCHC RDW Plt Count MPV Immature Gran % (Auto) Neut % (Auto) Lymph % (Auto) [place] % (Auto) Eos % (Auto) Baso % (Auto) Lymph # (Auto) [place] # (Auto) Eos # (Auto) Baso # (Auto) Abs Immat Gran (auto) Absolute Neuts (auto) Absolute Nucleated RBC Nucleated RBC % (auto) PT INR APTT Sodium Potassium Chloride Carbon Dioxide Anion Gap BUN Creatinine Estim Creat Clear Calc Estimated GFR POC Glucose 137 H 176 H Random Glucose Calcium Troponin I High Sens U Random Total Protein Ur Random Sodium Urine Creatinine Quality Stroke Does the patient have a stroke diagnosis?: No VTE Prior VTE?: No VTE Risk Level:: Medical - moderate - high VTE Device Contraindication: N/A - Device Ordered VTE Drug Contraindication: Treatment Not Indicated Assessment and Plan (1) Acute hyperkalemia: Status: Acute Assessment and Plan: 1. 70-year-old male with acute kidney injury superimposed on chronic kidney disease versus progressive chronic kidney disease. creatinine has been as high as 3.28 in 2018. As per Nephrology patient has ESSIE on chronic kidney disease: Hold off losartan Fluid is not given probably related to patient's hypervolemia and has leg swelling Nephro evaluation done, renal ultrasound does not show any obstruction Will continue to monitor renal function. Possibly has stage 4 kidney disease at baseline 2. Hyperkalemia due to acute kidney injury, chronic kidney disease, use of angiotensin receptor jone losartan, probably high potassium diet. Low-potassium diet Hold losartan 4. Mild metabolic acidosis, which is non anion gap type in the setting of renal failure-seems to be improved. 5. Type 2 diabetes mellitus.: Insulin continue 6. Hypertension.:Continue hypertension medication including clonidine, hydrala zine , amlodipine.
--- NOTE | 2021-02-18 19:44 | P.PNNP_ITS ---
Assessment & Plan Time Spent With Patient Time: IMPRESSION: 1. 70-year-old male with acute kidney injury superimposed on chronic kidney disease versus progressive chronic kidney disease. Review of patient's lab shows patient's creatinine has been as high as 3.28 in 2018. In September, his creatinine was 4.20 and presently around 6.95. Obstruction needs to be ruled out on this patient. I doubt the patient has acute GN/interstitial disease at this juncture. Normal Immunofixation No [place] on USG 2. Likely chronic kidney disease stage 4 at baseline in the setting of longstanding diabetes and hypertension. 3. Hyperkalemia due to acute kidney injury, chronic kidney disease, use of angiotensin receptor jone losartan, probably high potassium diet. 4. Mild metabolic acidosis, which is non anion gap type in the setting of renal failure. 5. Type 2 diabetes mellitus. 6. Hypertension. RECOMMENDATIONS: With medical management for his hyperkalemia- k is better Pt with Vol Over load - Will start Lasix 40 mg daily IV Hold Losartan I would continue the present dose of Flomax. No change in patient's renal function -we need to consider starting him on renal replacement therapy. D/w Pt - Permcath on Sunday - D/w dr. Severino who will order it Total time spent is greater than 50% in coordination of care (as documented) at patient's floor/unit and/or counseling patient: Subjective Subjective Date of Service: 02/18/21 Interval history: Generalized weakness, hyperkalemia Physical Exam Vital Signs: Vital Signs: Last Vital Signs Temp 98.1 F 02/18/21 19:33 Pulse 78 02/18/21 19:33 Resp 15 02/18/21 19:33 BP 166/80 H 02/18/21 19:33 Pulse Ox 93 02/18/21 19:33 Body Mass Index 36.6 Objective Data Labs CBC & Chem 7: 02/18/21 06:24 02/18/21 06:24 Labs: Laboratory Results - last 24 hr 02/17/21 02/18/21 02/18/21 21:27 06:24 06:24 WBC 5.2 RBC 3.04 L Hgb 9.2 L Hct 27.2 L MCV 89.5 MCH 30.3 MCHC 33.8 RDW 13.8 Plt Count 152 L MPV 10.4 Immature Gran % (Auto) 1.0 H Neut % (Auto) 64.2 Lymph % (Auto) 22.1 [place] % (Auto) 7.7 Eos % (Auto) 4.4 H Baso % (Auto) 0.6 Lymph # (Auto) 1.2 [place] # (Auto) 0.4 Eos # (Auto) 0.2 Baso # (Auto) 0.0 Abs Immat Gran (auto) 0.05 H Absolute Neuts (auto) 3.4 Absolute Nucleated RBC 0.000 Nucleated RBC % (auto) 0.0 Sodium 140 140 Potassium 5.1 5.0 Chloride 110 H 109 H Carbon Dioxide 20 L 23 Anion Gap 15 13 BUN 61 H 60 H Creatinine 6.93 H* 6.66 H* Estim Creat Clear Calc 10.9 11.3 Estimated GFR 8 8 POC Glucose Random Glucose 150 H 132 H Calcium 8.8 8.6 02/18/21 02/18/21 02/18/21 07:24 12:03 16:12 WBC RBC Hgb Hct MCV MCH MCHC RDW Plt Count MPV Immature Gran % (Auto) Neut % (Auto) Lymph % (Auto) [place] % (Auto) Eos % (Auto) Baso % (Auto) Lymph # (Auto) [place] # (Auto) Eos # (Auto) Baso # (Auto) Abs Immat Gran (auto) Absolute Neuts (auto) Absolute Nucleated RBC Nucleated RBC % (auto) Sodium Potassium Chloride Carbon Dioxide Anion Gap BUN Creatinine Estim Creat Clear Calc Estimated GFR POC Glucose 131 H 137 H 176 H Random Glucose Calcium Procedures Date of Service Date of Service: 02/18/21
[2021-02-18 20:31] LABS: Glucose, Whole Blood 89 mg/dL (60-115)
[2021-02-18] MEDS: Furosemide 40 MG/4 ML VIAL IVPUSH (21:00)
[2021-02-19] VITALS (9 sets, daily range): BP systolic 138–182; BP diastolic 74–86; PULSE 62–80; RESP 16–18; TEMP 36.6–37.6; O2SAT 96–98
[2021-02-19 02:31] LABS: Glucose, Whole Blood 110 mg/dL (60-115)
[2021-02-19] MEDS: Heparin Sodium,Porcine 5,000 UNIT/ML VIAL 5000 UNIT SUBCUT ×3 (04:30→20:28)
[2021-02-19 07:30] LABS: Glucose, Whole Blood 120 mg/dL (60-115)
[2021-02-19 07:48] LABS: Anion Gap 16 (12-20); Blood Urea Nitrogen 66 mg/dL (9-16); Calcium 9.2 mg/dL (8.4-10.2); Carbon Dioxide 22 mmol/L (22-29); Chloride 107 mmol/L (96-108); Creatinine Clr Calc Pharmacy 11.4; Estimated Glomerular Filt Rate 8; Glucose Random 117 mg/dL (60-115); Potassium 5.1 mmol/L (3.3-5.1); Sodium 140 mmol/L (135-145)
[2021-02-19] MEDS: 0.9 % Sodium Chloride Flush 3 ML SYRINGE IVFLUSH ×3 (08:54→20:29)
[2021-02-19] MEDS: amLODIPine Besylate 10 MG TABLET PO (08:55)
[2021-02-19] MEDS: carvediloL 12.5 MG TABLET PO ×2 (08:55→20:28)
[2021-02-19] MEDS: Furosemide 40 MG/4 ML VIAL IVPUSH (08:55)
[2021-02-19 11:08] LABS: Glucose, Whole Blood 235 mg/dL (60-115)
[2021-02-19] MEDS: Insulin Lispro 100 UNIT/ML 3 ML VIAL SUBCUT ×2 (11:49→20:29)
--- NOTE | 2021-02-19 12:30 | MHC.CM.PN ---
CM MET WITH PT WITH THE ASSISTANCE OF [facility] [place] [employer] [facility]. 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 PT DENIES USING DME AND REPORTS BEING INDEPENDENT WITH PERSONAL CARE. PT DOES NOT KNOW THE NAME OF HIS PCP BUT GOES TO THE [facility]. PT HAS A HCP N FILE NAMING HIS SISTER, TRAVIS HIS AGENT. IMM DELIVERED CURRENT DC PLAN IS HOME WITH RESUMPTION OF SERVICES PT TO ARRANGE TRANSPORTATION
--- NOTE | 2021-02-19 14:21 | P.PNIM_ITS ---
Subjective Subjective Date of Service: 02/24/21 Interval History: advanced renal dis Review of Systems Patient denies any chest pain or shortness of breath or nausea or vomiting or fever chills or cough or phlegm Could able to answer all the questions Physical Exam Vital Signs: Vital Signs: Last Vital Signs Temp 98 F 02/19/21 11:51 Pulse 65 02/19/21 11:51 Resp 16 02/19/21 11:51 BP 156/78 H 02/19/21 11:51 Pulse Ox 98 02/19/21 11:51 Body Mass Index 36.6 Physical exam: Cvs: rrr, [id number] , no murmur res: clear to auscultation ,no rhonchii or wheezing abd: no rebound or guarding ,nt, bs present. ext pulses present , no cyanosis neuro: axo3 , nonfocal. Objective Data Current Medications Generic Name Dose Route Start Last Admin Trade Name Freq PRN Reason Stop Dose Admin Amlodipine Besylate 10 mg 02/19/21 09:00 02/19/21 08:55 Amlodipine Besylate 10 Mg Tablet PO 10 mg DAILY [facility] Administration Protocol Carvedilol 12.5 mg 02/18/21 09:00 02/19/21 08:55 Carvedilol 12.5 Mg Tablet PO 12.5 mg BID [facility] Administration Protocol Furosemide 40 mg 02/18/21 20:00 02/19/21 08:55 Furosemide 40 Mg/4 Ml Vial IVPUSH 40 mg DAILY [facility] Administration Protocol Heparin Sodium (Porcine) 5,000 unit 02/17/21 21:30 02/19/21 14:19 Heparin Sodium,Porcine 5,000 Unit/Ml Vial SUBCUT 5,000 unit Q8H [facility] Administration Insulin Human Lispro 0 unit 02/18/21 07:30 02/19/21 11:49 Insulin Lispro 100 Unit/Ml 3 Ml Vial SUBCUT 4 unit QIDACHS [facility] Administration Protocol Melatonin 6 mg 02/17/21 21:07 Melatonin 3 Mg Tablet PO BEDTIME PRN Insomnia Pharmacy Consult 1 each 02/17/21 15:08 Consult Rx Perform Med Rec MISCELLANE ONCE PRN Consult order Senna 17.2 mg 02/17/21 21:07 Sennosides 8.6 Mg Tablet PO BEDTIME PRN Constipation Sodium Chloride 3 ml 02/18/21 00:00 02/19/21 08:54 0.9 % Sodium Chloride Flush 3 Ml Syringe IVFLUSH 3 ml QSHIFT [facility] Administration Labs CBC & Chem 7: 02/20/21 05:55 02/20/21 05:55 Labs: Laboratory Results - last 24 hr 02/18/21 02/18/21 02/19/21 16:12 20:23 02:27 Sodium Potassium Chloride Carbon Dioxide Anion Gap BUN Creatinine Estim Creat Clear Calc Estimated GFR POC Glucose 176 H 89 110 Random Glucose Calcium 02/19/21 02/19/21 02/19/21 06:01 07:07 11:00 Sodium 140 Potassium 5.1 Chloride 107 Carbon Dioxide 22 Anion Gap 16 BUN 66 H Creatinine 6.62 H* Estim Creat Clear Calc 11.4 Estimated GFR 8 POC Glucose 120 H 235 H Random Glucose 117 H Calcium 9.2 D Assessment and Plan (1) Acute on chronic kidney failure: Status: Acute (2) Acute hyperkalemia: Status: Acute Assessment and Plan: 1. 70-year-old male with acute kidney injury superimposed on chronic kidney disease versus progressive chronic kidney disease. creatinine has been as high as 3.28 in 2018. As per Nephrology patient has ESSIE on chronic kidney disease: continue to monitor renal function-Possibly has stage 4 kidney disease at baseline renal ultrasound does not show any hydro. echo was also done -Normal left ventricular size, thickness, and systolic function. The visually estimated ejection fraction is between 60-65%. Hold off losartan on iv lasix ? hypervolemia nephro eval appreciated , nephro fu today-patient is not decided for dialysis but he is considering get the catheter but he wants to talk his family about it . 2. Hyperkalemia due to acute kidney injury, chronic kidney disease, use of angiotensin receptor jone losartan, probably high potassium diet. Low-potassium diet Hold losartan 4. Mild metabolic acidosis, which is non anion gap type in the setting of renal failure-seems to be improved. 5. Type 2 diabetes mellitus.: Insulin continue. 6. Hypertension.:Continue hypertension medication including clonidine, hydr alazine , amlodipine. Quality Stroke Does the patient have a stroke diagnosis?: No VTE Prior VTE?: No VTE Risk Level:: Medical - moderate - high VTE Device Contraindication: N/A - Device Ordered VTE Drug Contraindication: Treatment Not Indicated
--- NOTE | 2021-02-19 16:17 | P.PNNP_ITS ---
Assessment & Plan Assessment and plan (1) Acute on chronic kidney failure: Status: Acute (2) Acute hyperkalemia: Status: Acute Assessment and Plan: 1. 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 DM 3. HyperK : controlled with meds 4. Anemia: mild at this time and doesnt need Tx with Fe/EPO 5. MBD of CKD 6. 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 HTN: meds as noted REC: if stays as inpt then Pca and start HD sunday; protect non-dominant arm for futrue AVF Time Spent With Patient Time: Total time spent is greater than 50% in coordination of care (as documented) at patient's floor/unit and/or counseling patient: Subjective Subjective Date of Service: 02/19/21 Interval history: Seen and examined, events noted Physical Exam Vital Signs: Vital Signs: Last Vital Signs Temp 98.0 F 02/19/21 16:00 Pulse 66 02/19/21 16:00 Resp 16 02/19/21 16:00 BP 165/82 H 02/19/21 16:00 Pulse Ox 96 02/19/21 16:00 Body Mass Index 36.6 Const: General: cooperative, healthy appearing, comfortable and no acute distress Orientation/consciousness: patient oriented x3 Limitations: no limitations HENMT: Head: Yes normal to inspection Ears: hearing grossly normal bilaterally General nose exam: Normal external nose present Face and sinus: Yes normal facial exam Mouth: Normal oral and palatal mucosa present Throat: Yes posterior oropharynx normal Eyes: General: appearance normal, both eyes and all related structures P upils: Equal, round and reactive pupils present Neck: Neck: Yes normal visual inspection Chest: Chest palpation & inspection: normal inspection of the chest Resp: Effort & Inspection: normal respiratory effort Auscultation: clear to auscultation bilaterally Cardio: Rate: regular rate Rhythm: regular rhythm Peripheral pulses: Peripheral pulses 2+ throughout GI: Inspection: Yes normal to inspection Palpation (GI): Soft to palpation and nontender Auscultation: normal bowel sounds Back/Spine/Pelvis: Thoracic/Lumbar Spine: thoracic and lumbar spine normal to inspection Skin: General skin exam: no rashes or lesions noted Neuro: General: patient oriented x3, no focal motor deficits and normal sensation to monofilament Cranial nerves: Yes Equal, round and reactive pupils present Cognition (Neuro): normal cognition Speech: No Abnormal speech present Gait exam (Neuro): Normal gait present Motor exam (neuro): 5/5 motor strength present throughout Extrem: General: Yes normal to inspection and Yes edema (Bilateral lower extremity swelling, nonpitting) Objective Data Labs CBC & Chem 7: 02/18/21 06:24 02/19/21 06:01 Labs: Laboratory Results - last 24 hr 02/18/21 02/18/21 02/19/21 16:12 20:23 02:27 Sodium Potassium Chloride Carbon Dioxide Anion Gap BUN Creatinine Estim Creat Clear Calc Estimated GFR POC Glucose 176 H 89 110 Random Glucose Calcium 02/19/21 02/19/21 02/19/21 06:01 07:07 11:00 Sodium 140 Potassium 5.1 Chloride 107 Carbon Dioxide 22 Anion Gap 16 BUN 66 H Creatinine 6.62 H* Estim Creat Clear Calc 11.4 Estimated GFR 8 POC Glucose 120 H 235 H Random Glucose 117 H Calcium 9.2 D Procedures Date of Service Date of Service: 02/19/21 Progress Note: Quality Stroke Does the patient have a stroke diagnosis?: No
[2021-02-19 16:41] LABS: Glucose, Whole Blood 88 mg/dL (60-115)
[2021-02-19 20:18] LABS: Glucose, Whole Blood 201 mg/dL (60-115)
[2021-02-20 03:58] VITALS: BP 142/77; PULSE 66; RESP 18; TEMP 37.1; O2SAT 97
[2021-02-20] MEDS: Heparin Sodium,Porcine 5,000 UNIT/ML VIAL 5000 UNIT SUBCUT (04:32)
[2021-02-20 07:07] LABS: Hematocrit 27.6 % (42-52); Hemoglobin 9.3 g/dl (14.0-18.0); Mean Corpuscular HGB Conc 33.7 g/dl (31.0-36.0); Mean Corpuscular Hemoglobin 29.8 pg (27.0-33.0); Mean Corpuscular Volume 88.5 fL (80-98); Mean Platelet Volume 10.4 fL (9.4-12.4); Platelet Count 165 X10*3/uL (160-400); Red Blood Count 3.12 X10*6/uL (4.60-5.80); Red Cell Distribution Width 13.4 % (11.0-16.0); White Blood Count 5.8 X10*3/uL (4.8-10.8)
[2021-02-20 07:46] LABS: Anion Gap 16 (12-20); Blood Urea Nitrogen 70 mg/dL (9-16); Carbon Dioxide 20 mmol/L (22-29); Chloride 108 mmol/L (96-108); Creatinine Clr Calc Pharmacy 10.9; Estimated Glomerular Filt Rate 8; Glucose Random 101 mg/dL (60-115); Sodium 139 mmol/L (135-145)
[2021-02-20 07:50] LABS: Calcium 8.7 mg/dL (8.4-10.2)
[2021-02-20 07:54] LABS: Glucose, Whole Blood 116 mg/dL (60-115)
[2021-02-20 08:00] VITALS: BP 162/79; PULSE 69; RESP 18; TEMP 37.2; O2SAT 97
[2021-02-20 09:38] VITALS: BP 162/79; PULSE 69
[2021-02-20] MEDS: carvediloL 12.5 MG TABLET PO (09:38)
[2021-02-20] MEDS: 0.9 % Sodium Chloride Flush 3 ML SYRINGE IVFLUSH (09:38)
[2021-02-20] MEDS: amLODIPine Besylate 10 MG TABLET PO (09:38)
[2021-02-20 09:58] LABS: Phosphorus 5.5 mg/dL (2.7-4.5)
--- NOTE | 2021-02-20 10:37 | P.PNNP_ITS ---
Assessment & Plan Assessment and plan (1) Acute on chronic kidney failure: Status: Acute (2) Acute hyperkalemia: Status: Acute Assessment and Plan: 1. 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 DM 3. HyperK : controlled with meds 4. Anemia: mild at this time and doesnt need Tx with Fe/EPO 5. MBD of CKD 6. 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 HTN: meds as noted Dsic: I talked with PT and hus britton Little ( [phone]) and we agreed to hold off with placement of Pcath and hold off with starting HD as he has no uremic symptoms; instead he will get repeat renal labs or sunday of next week and f/u with me the week after; I reviewed them both the S/S of uriemia which would indiacte need to strt HD; we will refer him for AVF placement REC:ok to d/c home on current meds; needs labs next week, f/u with me in 2 wks ( I will arrange f/u); protect non-dominant arm for futrue AVF Time Spent With Patient Time: Total time spent is greater than 50% in coordination of care (as documented) at patient's floor/unit and/or counseling patient: Subjective Subjective Date of Service: 02/20/21 Interval history: Seen and examined, events noted Physical Exam Vital Signs: Vital Signs: Last Vital Signs Temp 99.0 F 02/20/21 08:00 Pulse 69 02/20/21 09:38 Resp 18 02/20/21 08:00 BP 162/79 H 02/20/21 09:38 Pulse Ox 97 02/20/21 08:00 Body Mass Index 36.6 Const: General: cooperative, healthy appearing, comfortable and no acute distress Orientation/consciousness: patient oriented x3 Limitations: no limitations HENMT: Head: Yes normal to inspection Ears: hearing grossly normal bilaterally General nose exam: Normal external nose present Face and sinus: Yes normal facial exam Mouth: Normal oral and palatal mucosa present Throat: Yes posterior oropharynx normal Eyes: General: appearance normal, both eyes and all related structures Pupils: Equal, round and reactive pupils present Neck: Neck: Yes normal visual inspection Chest: Chest palpation & inspection: normal inspection of the chest Resp: Effort & Inspection: normal respiratory effort Auscultation: clear to auscultation bilaterally Cardio: Rate: regular rate Rhythm: regular rhythm Peripheral pulses: Peripheral pulses 2+ throughout GI: Inspection: Yes normal to inspection Palpation (GI): Soft to palpation and nontender Auscultation: normal bowel sounds Back/Spine/Pelvis: Thoracic/Lumbar Spine: thoracic and lumbar spine normal to inspection Skin: General skin exam: no rashes or lesions noted Neuro: General: patient oriented x3, no focal motor deficits and normal sensation to monofilament Cranial nerves: Yes Equal, round and reactive pupils present Cognition (Neuro): normal cognition Speech: No Abnormal speech present Gait exam (Neuro): Normal gait present Motor exam (neuro): 5/5 motor strength present throughout Extrem: General: Yes normal to inspection and Yes edema (Bilateral lower extremity swelling, nonpitting) Objective Data Labs CBC & Chem 7: 02/20/21 05:55 02/20/21 05:55 Labs: Laboratory Results - last 24 hr 02/19/21 02/19/21 02/19/21 11:00 16:32 20:12 WBC RBC Hgb Hct MCV MCH MCHC RDW Plt Count MPV Absolute Nucleated RBC Nucleated RBC % (auto) Sodium Potassium Chloride Carbon Dioxide Anion Gap BUN Creatinine Estim Creat Clear Calc Estimated GFR POC Glucose 235 H 88 201 H Random Glucose Calcium Phosphorus 02/20/21 02/20/21 02/20/21 05:55 05:55 07:46 WBC 5.8 RBC 3.12 L Hgb 9.3 L Hct 27.6 L MCV 88.5 MCH 29.8 MCHC 33.7 RDW 13.4 Plt Count 165 MPV 10.4 Absolute Nucleated RBC 0.000 Nucleated RBC % (auto) 0.0 Sodium 139 Potassium 5.0 Chloride 108 Carbon Dioxide 20 L Anion Gap 16 BUN 70 H Creatinine 6.89 H* Estim Creat Clear Calc 10.9 Estimated GFR 8 POC Glucose 116 H Random Glucose 101 Calcium 8.7 Phosphorus 5.5 H Procedures Date of Service Date of Service: 02/20/21 Progress Note: Quality Stroke Does the patient have a stroke diagnosis?: No
[2021-02-20 11:27] LABS: Glucose, Whole Blood 240 mg/dL (60-115)
--- NOTE | 2021-02-20 11:31 | P.DS_ITS ---
DS: Providers Provider Date of Service: 02/20/21 Date of admission: 02/17/21 21:03 Primary care physician: [facility] Consults: 02/17/21 17:12 Consult to Nephrology Stat Consulting Provider: Bobby Haas Reason for consultation: worsening renal function 02/17/21 21:07 Consult to Nephrology Routine Consulting Provider: Hamilton Vinson Reason for consultation: rossana on ckd; hyperkalemia DS: Diagnosis Discharge Diagnosis (1) Acute on chronic kidney failure: Status: Acute (2) Acute hyperkalemia: Status: Acute DS: Medications Discharge Medications Home Medications: Home Medications Medication Instructions Recorded Confirmed acetaminophen 325 mg tablet 325 mg PO Q4H PRN 09/22/20 02/17/21 albuterol sulfate 90 mcg/actuation 2 puff INHALATION QID PRN 09/22/20 02/17/21 aerosol inhaler amlodipine 10 mg tablet 10 mg PO BEDTIME 09/22/20 02/17/21 aspirin 81 mg tablet,delayed 81 mg PO QAM 09/22/20 02/17/21 release atorvastatin 10 mg tablet 10 mg PO BEDTIME 09/22/20 02/17/21 cholecalciferol (vitamin D3) 50 50 mcg PO DAILY 09/22/20 02/17/21 mcg (2,000 unit) tablet ferrous sulfate 325 mg (65 mg 325 mg PO DAILY 09/22/20 02/17/21 iron) tablet fluticasone propionate 50 2 spray INTRANASAL DAILY PRN 09/22/20 02/17/21 mcg/actuation nasal spray,suspension insulin detemir U-100 100 unit/mL 25 unit SUBCUT BEDTIME 09/22/20 02/17/21 subcutaneous solution losartan 100 mg tablet 100 mg PO DAILY 09/22/20 02/17/21 tamsulosin 0.4 mg capsule 0.4 mg PO BEDTIME 09/22/20 02/17/21 carvedilol 1 tab PO BID 02/17/21 02/17/21 furosemide 1 tab PO QAM 02/17/21 02/17/21 DS: Summary Hospital Course Hospital Course: Chief Complaint: Generalized weakness 70-year-old male with a past medical history of hypertension, hyperlipidemia, diabetes, chronic kidney disease, perform neuropathy, presented to the hospital with a chief complaint of generalized weakness. Patient reported that for the past few weeks he has been having generalized weakness and also noted to have swelling in his legs. Reports intermittent dizziness. Patient reported that he had routine blood work done today in the clinic; noted to have elevated potassium and subsequently sent to the hospital for further evaluation. Denies any chest pain or palpitations. Denies any numbness tingling. Denies any fever chills cough. Denies any recent travel or sick sick contacts. Review of all other systems is negative except mentioned above ER course: ER team noted the patient had potassium of 6.0 and creatinine of 6.94; ER team spoke to Nephrology- Dr. Haas. Recommended additional 15 g of Kayexalate. Also requesting additional urine studies, renal ultrasound, 80 mg of IV Lasix, 1 L of D5W with 150 mEq of sodium bicarb at 125ml/hr x 1L. Admitted to the hospital for further management hospital course: He has progressive CKD and prsented with hypekalemia, he is on Losartant. Hyperkalemia was treated with med and has normalized. His renal function remain stable, although we can think he will need dialysis in the near future, this is not iminent and therefore will have follow up on outpatient basis with Dr. Sol. Should stop taken Losartant. 2. DM--continue home insulin 3. HyperK : Resolved as above 4. Anemia: mild at this time and doesnt need Tx with Iron or epogen 5. MBD of CKD--stable 6. 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 HTN: meds as noted Dsic: Dr Shipman talked with PT and hiss son Sidney ( [phone]) and we agreed to hold off with placement of Pcath and hold off with starting HD as he has no uremic symptoms; instead he will get repeat renal labs or sunday of next week and f/u with me the week after; Dr Shipman reviewed them both the S/S of uriemia which would indiacte need to strt HD; we will refer him for AVF placement Time Spent with Patient Time attestation: Total time spent providing and/or coordinating discharge services: Discharge coordination time: Greater than 30 minutes Quality: Stroke Does the patient have a stroke diagnosis?: No Physical Exam Vital Signs: Vital Signs: Last Vital Signs Temp 99.0 F 02/20/21 08:00 Pulse 69 02/20/21 09:38 Resp 18 02/20/21 08:00 BP 162/79 H 02/20/21 09:38 Pulse Ox 97 02/20/21 08:00 Body Mass Index 36.6 Const: Other: General: AO X 3, no acute distress Resp: CTA bilateral CVS: S1,S2,RRR GI: +BS, NT, no distention Skin: No rash Neuro: motor grossly intact Psych: appropriate affect DS: Data Data Completed and Pending Labs on day of discharge: Laboratory Results - last 24 hr 02/19/21 02/19/21 02/20/21 16:32 20:12 05:55 WBC 5.8 RBC 3.12 L Hgb 9.3 L Hct 27.6 L MCV 88.5 MCH 29.8 MCHC 33.7 RDW 13.4 Plt Count 165 MPV 10.4 Absolute Nucleated RBC 0.000 Nucleated RBC % (auto) 0.0 Sodium Potassium Chloride Carbon Dioxide Anion Gap BUN Creatinine Estim Creat Clear Calc Estimated GFR POC Glucose 88 201 H Random Glucose Calcium Phosphorus 02/20/21 02/20/21 02/20/21 05:55 07:46 11:22 WBC RBC Hgb Hct MCV MCH MCHC RDW Plt Count MPV Absolute Nucleated RBC Nucleated RBC % (auto) Sodium 139 Potassium 5.0 Chloride 108 Carbon Dioxide 20 L Anion Gap 16 BUN 70 H Creatinine 6.89 H* Estim Creat Clear Calc 10.9 Estimated GFR 8 POC Glucose 116 H 240 H Random Glucose 101 Calcium 8.7 Phosphorus 5.5 H Discharge Plan Discharge Anticipated Discharge Date/Time: 02/20/21 11:24 Patient Disposition: Home, Self-Care Discharge Diagnosis: Acute renal failure, Hyperkalemia Referrals: [facility] [Primary Care Provider] - 1 Week Tim Shipman MD [Physician] - 1 Week Discharge Medications: New albuterol sulfate 90 mcg/actuation HFA aerosol inhaler 2 puff inhalation QID PRN (Reason: Shortness Of Breath Or Wheezing) Qty: 8.5 RF: 0 Continued furosemide 40 mg tablet 1 tab PO QAM RF: 0 acetaminophen 325 mg tablet 325 mg PO Q4H PRN (Reason: Pain) Qty: 30 RF: 0 atorvastatin 10 mg tablet 10 mg PO BEDTIME Qty: 30 RF: 0 aspirin 81 mg tablet,delayed release (DR/EC) 81 mg PO QAM Qty: 30 RF: 0 tamsulosin 0.4 mg capsule 0.4 mg PO BEDTIME Qty: 30 RF: 0 amlodipine 10 mg tablet 10 mg PO BEDTIME Qty: 30 RF: 0 ferrous sulfate 325 mg (65 mg iron) tablet 325 mg PO DAILY Qty: 30 RF: 0 fluticasone propionate 50 mcg/actuation spray,suspension 2 spray intranasal DAILY PRN (Reason: Allergy Symptoms) Qty: 16 RF: 0 insulin detemir U-100 100 unit/mL solution 25 unit subcut BEDTIME Qty: 10 RF: 0 cholecalciferol (vitamin D3) 50 mcg (2,000 unit) tablet 50 mcg PO DAILY Qty: 30 RF: 0 Changed carvedilol 12.5 mg tablet 12.5 mg PO BID Qty: 30 RF: 0 Discontinued losartan 100 mg tablet 100 mg PO DAILY RF: 0 Discharge Orders: Discharge Order (Routine); Ordered 02/20/21 Ordered By: Trell Dumont Diet: advance to usual diet Activity on Discharge: As tolerated Stand Alone Forms: Patient Portal Discharge page Care Plan Goals: prevent rehospitalization renal fucntion Health Concerns: renal failure, catina potassium Plan of Treatment: do not take Losartan, follow up with Dr. Shipman to have dialysis catheter put in later Assessment: As above Discharge Date/Time: 02/20/21 14:34
--- NOTE | 2021-02-20 11:52 | MHC.CM.PN ---
D/C order received: home, self care. Patient recorded previously independent and has housekeeping 3x's/wk. Family to transport.
[2021-02-20 12:00] VITALS: BP 157/81; PULSE 59; RESP 20; TEMP 36.5; O2SAT 98
[2021-02-20] MEDS: Insulin Lispro 100 UNIT/ML 3 ML VIAL SUBCUT (12:24)
[2021-02-21 03:50] LABS: HBc Num1 0.09 S/CO (0.00-0.79); HBsAGNum1 0.17 S/CO (0.00-0.99); Hepatitis B Core Antibody Nonreactive (Nonreactive); Hepatitis B Surface Antigen Negative (Negative)
[2021-02-21 03:57] LABS: HBS Num1 64.49 mIU/mL (0-7.99); ~HepC Num1 0.54 S/CO (0.00-0.79); ~Hepatitis B Surface Antibody REACTIVE (Nonreactive); ~Hepatitis C Antibody Nonreactive (Nonreactive)
== END 2021-02-20 14:34 | disposition home or self-care (01) | DRG 641 ==
LOC: HO.ED 17:14 → HO.EDOVER 22:12 → HO.S3 02-18 06:32 → HO.EDOVER 02-18 07:06 → HO.IMC 02-18 14:25
PROVIDERS: Internal Medicine; Internal Medicine Nephrology; Nurse Practitioner Family; Admitting Provider Hospitalist; Emergency Provider Emergency Medicine Emergency Medical Services; Visit Provider Internal Medicine
DX: E87.5 Hyperkalemia (principal); N17.9 Acute kidney failure, unspecified; N18.4 Chronic kidney disease, stage 4 (severe); I12.9 Hypertensive chronic kidney disease with stage 1 through stage 4 chronic kidney disease, or unspecified chronic kidney disease; E87.2 Acidosis; D63.1 Anemia in chronic kidney disease; J45.909 Unspecified asthma, uncomplicated; E11.22 Type 2 diabetes mellitus with diabetic chronic kidney disease; E11.42 Type 2 diabetes mellitus with diabetic polyneuropathy; N25.0 Renal osteodystrophy; Z20.822 Contact with and (suspected) exposure to COVID-19; Z79.4 Long term (current) use of insulin; Z79.82 Long term (current) use of aspirin; Z79.899 Other long term (current) drug therapy
CPT/HCPCS: 36415; 71046; 76775; 80048; 80076; 81001; 82947; 83735; 83880; 84100; 84156; 84300; 84484; 85025; 85027; 85610; 85730; 86704; 86706; 86803; 87340; 87635; 93005; 93306; 93970; 99285; J1940; Q9957

== ENCOUNTER 2021-04-25 08:29 | Outpatient (REF) | payer MEDICARE, SELFPAY ==
[2021-04-25 09:13] LABS: MANUAL DIFF FLAG NO
[2021-04-25 09:22] LABS: Basophils Percent Auto 0.7 % (0-2); Eosinophils Absolute Auto 0.4 X10*3/uL (0.0-0.4); Eosinophils Percent Auto 6.3 % (0-4); Hematocrit 27.1 % (42-52); Hemoglobin 9.1 g/dl (14.0-18.0); Imm Gran Abs Auto 0.09 X10*3/uL (0.00-0.03); Imm Gran Pct Auto 1.5 % (0.0-0.4); Lymphocytes Absolute Auto 1.6 X10*3/uL (1.2-4.9); Lymphocytes Percent Auto 26.2 % (20-40); Mean Corpuscular HGB Conc 33.6 g/dl (31.0-36.0); Mean Corpuscular Hemoglobin 30.2 pg (27.0-33.0); Mean Platelet Volume 10.4 fL (9.4-12.4); Monocytes Absolute Auto 0.4 X10*3/uL (0.1-1.2); Monocytes Percent Auto 6.6 % (2-11); Neutrophils Absolute Auto 3.6 X10*3/uL (2.0-8.3); Neutrophils Percent Auto 58.7 % (45-73); Platelet Count 153 X10*3/uL (160-400); Red Blood Count 3.01 X10*6/uL (4.60-5.80); Red Cell Distribution Width 13.8 % (11.0-16.0)
[2021-04-25 10:09] LABS: Vitamin D 25-OH Total 27.8 ng/mL (>30)
[2021-04-25 10:34] LABS: Anion Gap 14 (12-20); Blood Urea Nitrogen 58 mg/dL (9-16); Calcium 8.7 mg/dL (8.4-10.2); Carbon Dioxide 19 mmol/L (22-29); Chloride 111 mmol/L (96-108); Estimated Glomerular Filt Rate 8; Magnesium 1.8 mg/dL (1.6-2.6); Phosphorus 4.9 mg/dL (2.7-4.5); Potassium 5.5 mmol/L (3.3-5.1); Sodium 138 mmol/L (135-145)
[2021-04-25 12:06] LABS: Appearance Urine CLEAR; Color Urine YELLOW; Glucose Urine UA NEG (NEG); Leukocyte Esterase Urine NEG (NEG); Nitrite Urine NEG (NEG); Urine Blood 1+ (NEG); Urine Ketones NEG (NEG); Urine Protein 3+ MG/DL (NEG-TRACE)
[2021-04-25 12:26] LABS: RBC Urine 0-2 /HPF (0); Squamous Epithelial Cell Urine TRACE /LPF
[2021-04-25 12:53] LABS: Creatinine Urine 113.77 mg/dL
[2021-04-25 13:37] LABS: Total Protein Urine Random 250 mg/dL (<12)
[2021-04-26 16:16] LABS: Calcium (PTHI) 8.7 mg/dL (8.6-10.3); PTHI 760 pg/mL (14-64)
== END 2021-04-25 08:30 | disposition home or self-care (01) ==
LOC: HO.LAB 08:29
PROVIDERS: PCP Internal Medicine Geriatric Medicine; Visit Provider Internal Medicine Nephrology
DX: E87.5 Hyperkalemia (principal); I12.0 Hypertensive chronic kidney disease with stage 5 chronic kidney disease or end stage renal disease; N18.5 Chronic kidney disease, stage 5; E11.22 Type 2 diabetes mellitus with diabetic chronic kidney disease; E11.21 Type 2 diabetes mellitus with diabetic nephropathy
CPT/HCPCS: 36415; 80051; 81001; 82040; 82043; 82306; 82310; 82565; 83735; 83970; 84100; 84156; 84520; 85025; 87086

== ENCOUNTER → 2021-05-05 08:27 | Outpatient (BNVA) | payer MEDICARE, SELFPAY | PROVIDERS: PCP Internal Medicine Geriatric Medicine; Visit Provider Nurse Practitioner | DX: Z13.89 Encounter for screening for other disorder (principal) | CPT/HCPCS: Q3014 ==

== ENCOUNTER 2021-07-18 14:08 | Emergency (ER) | payer MEDICARE, SELFPAY ==
--- NOTE | ~2021-07-18 | XR_ITS ---
EXAMINATION: XR ELBOW, RIGHT, right and left wrist. CLINICAL INFORMATION: Fall COMPARISON: None TECHNIQUE: Frontal lateral oblique views of the right elbow. Frontal lateral oblique views of each hand. FINDINGS: There is a comminuted compression fracture of the distal radius subarticular surface, this has involved the right wrist, no other fractures or dislocation. The left wrist and including distal radius and ulna on the left are intact. Elbow is unremarkable. No fracture or dislocation. XR/XR elbow RT min 3V IMPRESSION: None articular mildly displaced comminuted compression fracture of the distal right radius No dislocation. There are no other fractures on the left.
--- NOTE | ~2021-07-18 | XR_ITS ---
EXAMINATION: XR ELBOW, RIGHT, right and left wrist. CLINICAL INFORMATION: Fall COMPARISON: None TECHNIQUE: Frontal lateral oblique views of the right elbow. Frontal lateral oblique views of each hand. FINDINGS: There is a comminuted compression fracture of the distal radius subarticular surface, this has involved the right wrist, no other fractures or dislocation. The left wrist and including distal radius and ulna on the left are intact. Elbow is unremarkable. No fracture or dislocation. XR/XR hand wrist LT IMPRESSION: None articular mildly displaced comminuted compression fracture of the distal right radius No dislocation. There are no other fractures on the left.
--- NOTE | ~2021-07-18 | XR_ITS ---
EXAMINATION: XR ELBOW, RIGHT, right and left wrist. CLINICAL INFORMATION: Fall COMPARISON: None TECHNIQUE: Frontal lateral oblique views of the right elbow. Frontal lateral oblique views of each hand. FINDINGS: There is a comminuted compression fracture of the distal radius subarticular surface, this has involved the right wrist, no other fractures or dislocation. The left wrist and including distal radius and ulna on the left are intact. Elbow is unremarkable. No fracture or dislocation. XR/XR hand wrist RT IMPRESSION: None articular mildly displaced comminuted compression fracture of the distal right radius No dislocation. There are no other fractures on the left.
[2021-07-18 16:07] VITALS: BP 175/87; PULSE 71; RESP 18; TEMP 37.1; O2SAT 98; BMI 34.2
--- NOTE | 2021-07-18 16:11 | ED.FALL ---
HPI - Fall General Chief Complaint: Fall Stated Complaint: fall wrist inj Time Seen by Provider: 07/18/21 16:06 Related Data Home Medications Medication Instructions Recorded Confirmed furosemide 40 mg tablet 1 tab PO QAM 02/17/21 02/17/21 calcitriol 0.25 mcg capsule 0.25 mcg PO Q OTHER DAY 05/05/21 Previous Rx's Medication Instructions Recorded acetaminophen 325 mg tablet 325 mg PO Q4H PRN #30 tab 02/20/21 albuterol sulfate 90 mcg/actuation 2 puff INHALATION QID PRN #8.5 g 02/20/21 aerosol inhaler amlodipine 10 mg tablet 10 mg PO BEDTIME #30 tab 02/20/21 aspirin 81 mg tablet,delayed 81 mg PO QAM #30 tab 02/20/21 release atorvastatin 10 mg tablet 10 mg PO BEDTIME #30 tab 02/20/21 carvedilol 12.5 mg tablet 12.5 mg PO BID #30 tab 02/20/21 cholecalciferol (vitamin D3) 50 50 mcg PO DAILY #30 tab 02/20/21 mcg (2,000 unit) tablet ferrous sulfate 325 mg (65 mg 325 mg PO DAILY #30 tab 02/20/21 iron) tablet fluticasone propionate 50 2 spray INTRANASAL DAILY PRN #16 g 02/20/21 mcg/actuation nasal spray,suspension insulin detemir U-100 100 unit/mL 25 unit (0.25 mL) SUBCUT BEDTIME 02/20/21 subcutaneous solution #10 ml tamsulosin 0.4 mg capsule 0.4 mg PO BEDTIME #30 cap 02/20/21 Allergies Allergy/AdvReac Type Severity Reaction Status Date / Time No Known Allergies Allergy Verified 05/05/21 08:31 [No Known Allergies*] [facility] Past Medical History Medical History Asthma Diabetes Hypertension Kidney disease Surgical History Hx of colonoscopy Family History Family History Sister Diabetes Social History Social History Household Members: Friend(s) Housing: Apartment Do you presently have visiting nurse or other home services: No Alcohol intake: current Alcohol intake frequency: a few times a month Alcohol type: beer Patient Tobacco Use Status: Never used Tobacco e-Cigarette/Vaping Use: Never Used service: No Current occupational status: unemployed Physical Exam Vital Signs: Vital Signs: Last Vital Signs Temp 98.8 F 07/18/21 16:07 Pulse 71 07/18/21 16:07 Resp 18 07/18/21 16:07 BP 175/87 H 07/18/21 16:07 Pulse Ox 98 07/18/21 16:07 BMI result Body Mass Index 34.2 Course Course Course Narrative: 16pm - 71-year-old male who denies being on any blood thinners with Chadian-speaking presenting to the ED with complaints of right hand/wrist pain/elbow pain and left hand pain after he had a mechanical fall earlier today where he was walking the street and stepped in a hole and fell with his hand stretched out he reports tissue even flew off. Although denies head injury loss of consciousness or any other injuries complaints or concerns at this time On exam patient is alert and oriented x3. Not in any acute distress. No focal neuro deficits are noted. He does have tenderness palpation to the right hand/wrist with swelling questioning deformity. Therefore at this time x-ray of bilateral hands and wrists and x-ray of right shoulder ordered and patient will be sent back to the waiting room for further evaluation treatment emergency minor care. Patient understands agrees with this plan. Discharge Plan Discharge Clinical Impression: Fracture of wrist Patient Disposition: Home, Self-Care Instructions: Wrist Fracture in Adults (ED), Compartment Syndrome (DC), R.I.C.E. Treatment (ED) Additional Instructions: Fue evaluado por lesiones sufridas por katharine ca?da con la mano extendida. Tu mu?eca derecha est? rota. Mantenga la f?brigette en badillo lugar hasta que nestor al ortopedista. Lo remitimos a la Dra. Stoddard, sonia tiene un cirujano de sunday. Por favor llame y solicite katharine iraida. Use Tylenol o Motrin seg?n sea necesario para el manejo del dolor. Descanse, aplique hielo y eleve la mu?eca para ayudar a reducir el dolor y la hinchaz?n. Actualizamos badillo vacuna Tdap hoy. Maria T por elegir aster departamento de emergencias para badillo evaluaci?n. Chinyere un seguimiento con badillo m?dico de atenci?n primaria seg?n sea necesario. Regrese al departamento de emergencias por cualquier s?ntoma nuevo, preocupante o que empeore. You were evaluated for injury sustained from a fall on outstretched hand. Your right wrist is broken. Please keep the splint in place until you see orthopedics. We referred you to Dr. Stoddard, she has a hand surgeon. Please call and request an appointment. Use Tylenol and or Motrin as needed for pain management. Rest, ice and elevate the wrist to help reduce pain and swelling. We updated your Tdap vaccine today. Thank you for choosing this emergency department for evaluation. Please follow-up with primary care physician as needed. Return to the emergency department for any new, concerning, or worsening symptoms. Prescriptions: No Action furosemide 40 mg tablet 1 tab PO QAM RF: 0 acetaminophen 325 mg tablet 325 mg PO Q4H PRN (Reason: Pain) Qty: 30 RF: 0 carvedilol 12.5 mg tablet 12.5 mg PO BID Qty: 30 RF: 0 atorvastatin 10 mg tablet 10 mg PO BEDTIME Qty: 30 RF: 0 aspirin 81 mg tablet,delayed release (DR/EC) 81 mg PO QAM Qty: 30 RF: 0 tamsulosin 0.4 mg capsule 0.4 mg PO BEDTIME Qty: 30 RF: 0 amlodipine 10 mg tablet 10 mg PO BEDTIME Qty: 30 RF: 0 ferrous sulfate 325 mg (65 mg iron) tablet 325 mg PO DAILY Qty: 30 RF: 0 albuterol sulfate 90 mcg/actuation HFA aerosol inhaler 2 puff inhalation QID PRN (Reason: Shortness Of Breath Or Wheezing) Qty: 8.5 RF: 0 fluticasone propionate 50 mcg/actuation spray,suspension 2 spray intranasal DAILY PRN (Reason: Allergy Symptoms) Qty: 16 RF: 0 insulin detemir U-100 100 unit/mL solution 25 unit subcut BEDTIME Qty: 10 RF: 0 cholecalciferol (vitamin D3) 50 mcg (2,000 unit) tablet 50 mcg PO DAILY Qty: 30 RF: 0 calcitriol 0.25 mcg capsule 0.25 mcg PO Q OTHER DAY RF: 0 Referrals: Barbi Stoddard MD [Physician] - 2 days (Mildly displaced compression fracture of the distal right radius) Discharge Date/Time: 07/18/21 19:00
--- NOTE | 2021-07-18 17:51 | ED_ITS ---
HPI - Fall General Chief Complaint: Fall Stated Complaint: fall wrist inj Time Seen by Provider: 07/18/21 16:06 Source: patient Mode of arrival: ambulatory Limitations: language barrier History of Present Illness HPI Narrative: 71-year-old male presents with injuries to the right hand after fall on outstretched hand. Patient stated he tripped in a hole in the street while getting onto the bus. He does not report any head injuries or prodromal symptoms. Has a visibly swollen wrist and thumb. MD complaint: fall Onset (ago): hour(s) (Several hours prior to arrival) Fall from: standing Fall witnessed: yes, by bystander Place fall occurred: street Loss of consciousness: none Prolonged down time: no Symptoms prior to fall: none Context: tripped/slipped Location of injury - extremities: right: arm (Wrist) Severity: moderate Severity scale (1-10): 8 Quality: aching Related Data Home Medications Medication Instructions Recorded Confirmed furosemide 40 mg tablet 1 tab PO QAM 02/17/21 02/17/21 calcitriol 0.25 mcg capsule 0.25 mcg PO Q OTHER DAY 05/05/21 Previous Rx's Medication Instructions Recorded acetaminophen 325 mg tablet 325 mg PO Q4H PRN #30 tab 02/20/21 albuterol sulfate 90 mcg/actuation 2 puff INHALATION QID PRN #8.5 g 02/20/21 aerosol inhaler amlodipine 10 mg tablet 10 mg PO BEDTIME #30 tab 02/20/21 aspirin 81 mg tablet,delayed 81 mg PO QAM #30 tab 02/20/21 release atorvastatin 10 mg tablet 10 mg PO BEDTIME #30 tab 02/20/21 carvedilol 12.5 mg tablet 12.5 mg PO BID #30 tab 02/20/21 cholecalciferol (vitamin D3) 50 50 mcg PO DAILY #30 tab 02/20/21 mcg (2,000 unit) tablet ferrous sulfate 325 mg (65 mg 325 mg PO DAILY #30 tab 02/20/21 iron) tablet fluticasone propionate 50 2 spray INTRANASAL DAILY PRN #16 g 02/20/21 mcg/actuation nasal spray,suspension insulin detemir U-100 100 unit/mL 25 unit (0.25 mL) SUBCUT BEDTIME 02/20/21 subcutaneous solution #10 ml tamsulosin 0.4 mg capsule 0.4 mg PO BEDTIME #30 cap 02/20/21 Allergies Allergy/AdvReac Type Severity Reaction Status Date / Time No Known Allergies Allergy Verified 05/05/21 08:31 [No Known Allergies*] Review of Systems Review of Systems: Constitutional: No Fever, No Chills ENT/Mouth: No Ear Pain, No Hoarseness, No sore throat Eyes: No Eye Pain, No Swelling, No Redness, No Foreign Body Cardiovascular: No Chest Pain, No SOB Respiratory: No Cough, No Dyspnea Gastrointestinal: No Nausea, No Vomiting, No Diarrhea, No abdominal Pain Genitourinary: No Dysuria, No Hematuria Musculoskeletal: positive right wrist pain, No Myalgias, positive right wrist and thumb Swelling Skin: No Skin lacerations, No rash Neuro: No Weakness, No Numbness, No Paresthesias, No Loss of Consciousness, No Dizziness, No Headache Psych: No Anxiety/Panic, No Depression Heme/Lymph: no easy bruising, no Lymphadenopathy Endocrine: No Polyuria, No Polydipsia Yes all other systems are reviewed and are negative FOR[facility]LY [facility] Past Medical History Attestation statement: The following information was validated with the patient. Source: old records reviewed Medical History Asthma Diabetes Hypertension Kidney disease Surgical History Hx of colonoscopy Family History Family History Sister Diabetes Social History Social History Household Members: Friend(s) Housing: Apartment Do you presently have visiting nurse or other home services: No Alcohol intake: current Alcohol intake frequency: a few times a month Alcohol type: beer Patient Tobacco Use Status: Never used Tobacco e-Cigarette/Vaping Use: Never Used Advance Directives: No Advance Directives Information Provided: No service: No Current occupational status: unemployed Physical Exam Vital Signs: Vital Signs: Last Vital Signs Temp 98.8 F 07/18/21 16:07 Pulse 71 07/18/21 16:07 Resp 18 07/18/21 16:07 BP 175/87 H 07/18/21 16:07 Pulse Ox 98 07/18/21 16:07 BMI result Body Mass Index 34.2 Appearance: Alert. Oriented X3. No acute distress. Eyes: Pupils equal, round and reactive to light. ENT: Pharynx normal. Neck: Normal inspection. Neck supple. CVS: Normal heart rate and rhythm. Pulses normal. Respiratory: No respiratory distress. Breath sounds normal. Abdomen: Soft and nontender. Skin: Skin warm and dry. Normal skin color. Normal skin turgor. Extremities: Decreased range of motion to the right wrist, flexion extension and pronation, tenderness noted to the radial process, strength 5/5 to all digits. Neurovascularly intact. Brisk capillary refill and equal pulses bilaterally. Neuro: No motor deficit. No sensory deficit. Course Course Course Narrative: 71-year-old male presents with injuries sustained from FOOSH. X-rays indicate mildly displaced comminuted compression fracture to the right distal radius. Prior provider, Pau LANDEROS corresponded with Orthopedics Dr. Perez on-call, plan is for volar splint and for have patient to follow-up in the office. Patient does have an abrasion to the left palm, cleaned and bandaged while in triage. 6:12 p.m. brisk capillary refill continues status post volar splint placement. Patient understands that he must follow up with Orthopedics. impress associate utilized for discharge instructions. Google translate utilized for discharge instructions.. Consultations Consultation #1: Richi Time: 17:45 Procedures Orthopedic Splinting/Casting Injury #1: Side: right Upper Extremity Injury Location: wrist Upper Extremity Immobilizer: volar splint MDM - Fall Differential Diagnosis Differential diagnosis: Likely dislocation, fracture and compression fracture Medical Records Attestation: I reviewed the patient's medical records. Imaging Data Elbow hand and wrist x-ray: Attestation: I personally reviewed and interpreted this imaging study as follows: Radiologist's impression: EXAMINATION: XR ELBOW, RIGHT, right and left wrist. CLINICAL INFORMATION: Fall? COMPARISON: None? TECHNIQUE: Frontal lateral oblique views of the right elbow. Frontal lateral oblique views of each hand. FINDINGS: There is a comminuted compression fracture of the distal radius subarticular surface, this has involved the right wrist, no other fractures or dislocation. The left wrist and including distal radius and ulna on the left are intact. Elbow is unremarkable. No fracture or dislocation.? XR/XR elbow RT min 3V IMPRESSION: None articular mildly displaced comminuted compression fracture of the distal right radius ? No dislocation. There are no other fractures on the left. Discharge Plan Discharge Clinical Impression: Fracture of wrist Qualifiers: Encounter type: initial encounter Fracture type: closed Laterality: right Qualified Code(s): S62.101A - Fracture of unspecified carpal bone, right wrist, initial encounter for closed fracture Patient Disposition: Home, Self-Care Instructions: Wrist Fracture in Adults (ED), Compartment Syndrome (DC), R.I.C.E. Treatment (ED) Additional Instructions: Fue evaluado por lesiones sufridas por katharine ca?da con la mano extendida. Tu mu?eca derecha est? rota. Mantenga la f?brigette en badillo lugar hasta que nestor al ortopedista. Lo remitimos a la Dra. Stoddard, sonia tiene un cirujano de sunday. Por favor llame y solicite katharine iraida. Use Tylenol o Motrin seg?n sea necesario para el manejo del dolor. Descanse, aplique hielo y eleve la mu?eca para ayudar a reducir el dolor y la hinchaz?n. Actualizamos badillo vacuna Tdap hoy. Maria T por elegir aster departamento de emergencias para badillo evaluaci?n. Chinyere un seguimiento con badillo m?dico de atenci?n primaria seg?n sea necesario. Regrese al departamento de emergencias por cualquier s?ntoma nuevo, preocupante o que empeore. You were evaluated for injury sustained from a fall on outstretched hand. Your right wrist is broken. Please keep the splint in place until you see orthopedics. We referred you to Dr. Stoddard, she has a hand surgeon. Please call and request an appointment. Use Tylenol and or Motrin as needed for pain management. Rest, ice and elevate the wrist to help reduce pain and swelling. We updated your Tdap vaccine today. Thank you for choosing this emergency department for evaluation. Please follow-up with primary care physician as needed. Return to the emergency department for any new, concerning, or worsening symptoms. Prescriptions: No Action furosemide 40 mg tablet 1 tab PO QAM RF: 0 acetaminophen 325 mg tablet 325 mg PO Q4H PRN (Reason: Pain) Qty: 30 RF: 0 carvedilol 12.5 mg tablet 12.5 mg PO BID Qty: 30 RF: 0 atorvastatin 10 mg tablet 10 mg PO BEDTIME Qty: 30 RF: 0 aspirin 81 mg tablet,delayed release (DR/EC) 81 mg PO QAM Qty: 30 RF: 0 tamsulosin 0.4 mg capsule 0.4 mg PO BEDTIME Qty: 30 RF: 0 amlodipine 10 mg tablet 10 mg PO BEDTIME Qty: 30 RF: 0 ferrous sulfate 325 mg (65 mg iron) tablet 325 mg PO DAILY Qty: 30 RF: 0 albuterol sulfate 90 mcg/actuation HFA aerosol inhaler 2 puff inhalation QID PRN (Reason: Shortness Of Breath Or Wheezing) Qty: 8.5 RF: 0 fluticasone propionate 50 mcg/actuation spray,suspension 2 spray intranasal DAILY PRN (Reason: Allergy Symptoms) Qty: 16 RF: 0 insulin detemir U-100 100 unit/mL solution 25 unit subcut BEDTIME Qty: 10 RF: 0 cholecalciferol (vitamin D3) 50 mcg (2,000 unit) tablet 50 mcg PO DAILY Qty: 30 RF: 0 calcitriol 0.25 mcg capsule 0.25 mcg PO Q OTHER DAY RF: 0 Referrals: Barbi Stoddard MD [Physician] - 2 days (Mildly displaced compression fracture of the distal right radius)
== END 2021-07-18 19:00 | disposition home or self-care (01) ==
LOC: HO.ED 18:09
PROVIDERS: Emergency Provider Emergency Medicine
DX: S62.101A Fracture of unspecified carpal bone, right wrist, initial encounter for closed fracture (principal); W17.2XXA Fall into hole, initial encounter; Y93.89 Activity, other specified; Y92.414 Local residential or business street as the place of occurrence of the external cause; Y99.9 Unspecified external cause status; E11.9 Type 2 diabetes mellitus without complications; I10 Essential (primary) hypertension
CPT/HCPCS: 29125; 73080; 73110; 73130; 90471; 99281; 99284

== ENCOUNTER 2021-07-19 12:33 | Outpatient (REF) | payer MEDICARE, SELFPAY ==
--- NOTE | ~2021-07-19 | XR_ITS ---
EXAMINATION: XR WRIST, RIGHT CLINICAL INFORMATION: Wrist pain. COMPARISON: 07/18/2021. TECHNIQUE: PA, lateral, and oblique views of the right wrist. FINDINGS: Again seen is a mildly comminuted fracture of the right distal radius with a transverse component and buckling of the dorsal cortex. There is likely extension to the articular surface, though the degree of articular surface displacement is minimal radiographically. There is neutral tilt of the distal radial articular surface as seen on sagittal images. Subcutaneous soft tissues are swollen. Atherosclerotic calcifications are present at the wrist. Minimal osteoarthritis in the interphalangeal joints and 1st CMC joint. XR/XR wrist RT min 3V IMPRESSION: Mildly comminuted intra-articular fracture of the right distal radius with probable intra-articular extension. No significant articular cortical step-off is suspected.
== END 2021-07-19 12:34 | disposition home or self-care (01) ==
LOC: HO.HOSX 12:33
PROVIDERS: Visit Provider Orthopaedic Surgery
DX: S52.501A Unspecified fracture of the lower end of right radius, initial encounter for closed fracture (principal)
CPT/HCPCS: 25600; 73110; 99202

== ENCOUNTER 2021-08-03 08:33 | Outpatient (REF) | payer MEDICARE, SELFPAY ==
--- NOTE | ~2021-08-03 | XR_ITS ---
EXAMINATION: XR WRIST, RIGHT CLINICAL INFORMATION: Pain right wrist COMPARISON: Right wrist 07/19/2021 TECHNIQUE: PA, lateral, and oblique views of the right wrist. FINDINGS: There is comminuted distal radial fracture with mild buckling of the dorsal cortex and likely intra-articular extension. Ulnar styloid process is intact. There is moderate volar soft tissue swelling. XR/XR wrist RT min 3V IMPRESSION: Comminuted fracture distal radius, unchanged to previous study 07/19/2021
== END 2021-08-03 08:34 | disposition home or self-care (01) ==
LOC: HO.HOSX 08:33
PROVIDERS: Visit Provider Orthopaedic Surgery
DX: S52.501D Unspecified fracture of the lower end of right radius, subsequent encounter for closed fracture with routine healing (principal)
CPT/HCPCS: 73110; 99212

== ENCOUNTER 2021-08-23 07:23 | Outpatient (REF) | payer MEDICARE, SELFPAY ==
--- NOTE | ~2021-08-23 | XR_ITS ---
EXAMINATION: XR WRIST, RIGHT CLINICAL INFORMATION: Right wrist pain. COMPARISON: Right wrist 08/03/2021 TECHNIQUE: PA, lateral, and oblique views of the right wrist. FINDINGS: There is a transverse fracture distal radius with callus formation. The fracture line is still visualized. No other fracture seen. There is mild reduction in the radial scaphoid joint space. XR/XR wrist RT min 3V IMPRESSION: Slowly healing transverse fracture distal radius with mild callus formation. The fracture line is still visualized. Mild reduction in radioscaphoid joint space is noted.
== END 2021-08-23 07:24 | disposition home or self-care (01) ==
LOC: HO.HOSX 07:23
PROVIDERS: Visit Provider Physician Assistant
DX: S52.501D Unspecified fracture of the lower end of right radius, subsequent encounter for closed fracture with routine healing (principal)
CPT/HCPCS: 29075; 73110; 99212

== ENCOUNTER 2021-09-06 07:42 | Outpatient (REF) | payer MEDICARE, SELFPAY ==
--- NOTE | ~2021-09-06 | XR_ITS ---
EXAMINATION: XR WRIST, RIGHT CLINICAL INFORMATION: Right wrist pain. COMPARISON: Multiple priors, most recent right wrist radiographs dated 08/23/2021. TECHNIQUE: PA, lateral, and oblique views of the right wrist. FINDINGS: Distal radial fracture in unchanged anatomic alignment, similar when compared to the prior examination. Minimal new bone/callus formation. No acute fracture or dislocation. Atherosclerotic calcifications. XR/XR wrist RT min 3V IMPRESSION: Distal radial fracture in unchanged anatomic alignment with minimal new bone/callus formation.
== END 2021-09-06 07:43 | disposition home or self-care (01) ==
LOC: HO.HOSX 07:42
PROVIDERS: Visit Provider Physician Assistant
DX: S52.501D Unspecified fracture of the lower end of right radius, subsequent encounter for closed fracture with routine healing (principal)
CPT/HCPCS: 73110; 99212

== ENCOUNTER 2021-09-20 07:29 | Outpatient (REF) | payer MEDICARE, SELFPAY ==
--- NOTE | ~2021-09-20 | XR_ITS ---
EXAMINATION: XR WRIST, RIGHT CLINICAL INFORMATION: Fracture COMPARISON: Previous x-rays most recent 09/06/2021 TECHNIQUE: PA, lateral, and oblique views of the right wrist. FINDINGS: The transverse fracture of the distal radius appears unchanged. There is mild impaction. Fracture line is still seen. No significant bony callus formation is seen. No other fracture is seen. Carpal bones are normal. There is soft tissue swelling about the wrist. XR/XR wrist RT min 3V IMPRESSION: No change in right distal radius fracture.
== END 2021-09-20 07:30 | disposition home or self-care (01) ==
LOC: HO.HOSX 07:29
PROVIDERS: Visit Provider Physician Assistant
DX: S52.501D Unspecified fracture of the lower end of right radius, subsequent encounter for closed fracture with routine healing (principal)
CPT/HCPCS: 73110; 99212

== ENCOUNTER 2021-10-11 09:58 | Outpatient (REF) | payer MEDICARE, SELFPAY ==
--- NOTE | ~2021-10-11 | MM_ITS ---
EXAMINATION: BONE DENSITOMETRY CLINICAL INDICATION: Fracture of unspecified carpal bone, right wrist. COMPARISON: None (current study represents initial baseline exam). TECHNIQUE: Using a [employer]MP[employer]LY DXA System (software version: 13.1) manufactured by [employer], dual-energy x-ray absorptiometry was performed of the lumbar spine and left hip. The images are of good technical quality. Summary results are attached. FINDINGS: AP SPINE L1-L4: BMD 0.914 g/cm2, Z-score -2.4, T-score -2.5, osteoporosis. LEFT FEMUR, NECK: BMD 0.813 g/cm2, Z-score -1.0, T-score -2.0, osteopenia. LEFT FEMUR, TOTAL: BMD 0.870 g/cm2, Z-score -1.1, T-score -1.6, osteopenia. IDENTIFIED RISK FACTORS: Renal, secondary osteoporosis, history of fracture (adult). HISTORY OF FRACTURE: Wrist. MEDICATIONS: Calcium supplements or multivitamin, vitamin D. MM/XR DEXA axial skeleton IMPRESSION: 1. DIAGNOSIS: Osteoporosis based on the lowest T-score value of -2.5 in the lumbar spine applying World Health Organization criteria. 2. 10-YEAR FRACTURE RISK PREDICTION, FRAX: According to the guidelines, FRAX calculation should only be performed on patients in the osteopenia bone density category. Therefore, FRAX was not performed on this patient. 3. Treatment Recommendations: NOF guidelines recommend consideration for treatment in postmenopausal women and men age 50 and older presenting with the following: -A hip or vertebral (clinical or morphometric) fracture. -T-score less than or equal to -2.5 at the femoral neck or spine after appropriate evaluation to exclude secondary causes. -Low bone mass at the hip or spine and a 10-year fracture probability by FRAX of greater than or equal to 3% for hip fracture or greater than or equal to 20% for major osteoporotic fracture based on the [place] adapted WHO algorithm. 4. Other Recommendations: All treatment decisions require clinical judgment and consideration of individual patient factors, including patient preferences, comorbidities, previous drug use, risk factors not captured in the FRAX model (e.g. frailty, falls, vitamin D deficiency, increased bone turnover, interval significant decline in bone density) and possible under or overestimation of fracture risk by FRAX. Additional medical evaluation for secondary cause of low bone mineral density may be appropriate. FUTURE SCAN RECOMMENDATION: People with diagnosed cases of osteoporosis or at high risk for fracture should have regular bone mineral density tests. For patients eligible for Medicare, routine testing is allowed once every 2 years. The testing frequency can be increased to one year for patients who have rapidly progressing disease, those who are receiving or discontinuing medical therapy to restore bone mass, or have additional risk factors.
== END 2021-10-11 09:59 | disposition home or self-care (01) ==
LOC: HO.MAMMO 09:58
PROVIDERS: Visit Provider Nurse Practitioner Primary Care
DX: Z13.820 Encounter for screening for osteoporosis (principal); M81.0 Age-related osteoporosis without current pathological fracture; Z79.899 Other long term (current) drug therapy; S62.101D Fracture of unspecified carpal bone, right wrist, subsequent encounter for fracture with routine healing
CPT/HCPCS: 77080

== ENCOUNTER 2021-11-01 07:12 | Outpatient (REF) | payer OTHER, SELFPAY ==
--- NOTE | ~2021-11-01 | XR_ITS ---
EXAMINATION: XR WRIST, RIGHT CLINICAL INFORMATION: Right wrist pain COMPARISON: Right wrist 09/20/2021 TECHNIQUE: PA, lateral, and oblique views of the right wrist. FINDINGS: There is a healing fracture distal radius with callus formation. There is loss of first carpometacarpal joint space with periarticular spurring. No visible acute fracture or dislocation seen. XR/XR wrist RT min 3V IMPRESSION: Healing fracture distal radius with moderate callus formation.
== END 2021-11-01 07:13 | disposition home or self-care (01) ==
LOC: HO.HOSX 07:12
PROVIDERS: Visit Provider Physician Assistant
DX: S52.501D Unspecified fracture of the lower end of right radius, subsequent encounter for closed fracture with routine healing (principal)
CPT/HCPCS: 73110; 99212

== ENCOUNTER → 2022-03-16 10:23 | Outpatient (BNVA) | payer OTHER, SELFPAY | PROVIDERS: PCP Nurse Practitioner Primary Care; Referring Provider Nurse Practitioner Primary Care; Visit Provider Nurse Practitioner | DX: D12.6 Benign neoplasm of colon, unspecified (principal); N18.6 End stage renal disease | CPT/HCPCS: 99212 ==

== ENCOUNTER 2022-03-25 20:34 | Emergency (ER) | payer OTHER, SELFPAY ==
--- NOTE | ~2022-03-25 | XR_ITS ---
EXAMINATION: XR CHEST CLINICAL INFORMATION: Cough COMPARISON: 02/17/2021 TECHNIQUE: Frontal view of the chest was obtained. FINDINGS: The lungs are clear with no focal consolidation. No evidence of pneumothorax, pulmonary edema, or pleural effusions. The cardiomediastinal silhouette is unremarkable. No acute osseous findings. XR/XR chest 1V IMPRESSION: No acute cardiopulmonary findings.
--- NOTE | ~2022-03-25 | CT_ITS ---
EXAMINATION: CT ABDOMEN AND PELVIS WITHOUT CONTRAST CLINICAL INFORMATION: Peritoneal dialysis, abdominal pain COMPARISON: 12/23/2013 TECHNIQUE: Multidetector volumetric imaging was performed from the superior aspect of the liver through the pubic symphysis. Sagittal and coronal reformatted images were obtained on the technologist's workstation. This CT examination was performed using dose optimization techniques as appropriate, variously including the following: *Automated exposure control *Adjustment of mA and/or kV according to patient size (this includes techniques or standardized protocols for targeted exams where dose is matched to indication/reason for exam; i.e. extremities or head) *Use of iterative reconstruction technique DLP: 647 mGy-cm FINDINGS: LUNG BASES: The visualized lung bases are unremarkable. LIVER, GALLBLADDER, AND BILIARY TREE: The liver is normal in size, shape, and attenuation. No focal hepatic lesion or biliary ductal dilatation is identified. The gallbladder appears contracted with cholelithiasis versus gallbladder wall calcification. PANCREAS: Partially atrophic. SPLEEN: Unremarkable. ADRENAL GLANDS: Unremarkable. KIDNEYS AND URETERS: No hydronephrosis or obstructing calculi. Nonspecific bilateral perinephric stranding. BLADDER: Mildly distended and grossly unremarkable. GASTROINTESTINAL TRACT: No evidence of bowel obstruction. There is prominent submucosal fat within much of the colon, a finding which can be associated with prior inflammation. No convincing evidence for acute colitis. Trace free fluid is present. No free air is seen. ABDOMINAL WALL: Peritoneal dialysis catheter enters via the left anterior abdominal wall, terminating in the left lower quadrant. LYMPH NODES: Normal. VASCULAR: Scattered atherosclerotic calcifications. PELVIC VISCERA: Prostate gland is enlarged, measuring 5.8 cm in transverse dimension. OSSEOUS STRUCTURES: Scattered degenerative changes are noted in the spine. CT/CT abdomen pelvis wo con IMPRESSION: 1. Peritoneal dialysis catheter terminates in the left lower quadrant. Trace fluid in the abdomen and pelvis. 2. No acute bowel abnormality identified. Prominence of mucosal fat throughout the colon may reflect sequelae of prior inflammation. 3. Contracted gallbladder with cholelithiasis versus gallbladder wall calcifications. 4. Enlarged prostate gland.
[2022-03-25 21:55] VITALS: BP 171/91; PULSE 82; RESP 16; TEMP 37.9; O2SAT 95; BMI 31.6
[2022-03-25 22:01] LABS: MANUAL DIFF FLAG NO
[2022-03-25 22:04] LABS: Basophils Percent Auto 0.3 % (0-2); Eosinophils Absolute Auto 0.1 X10*3/uL (0.0-0.4); Eosinophils Percent Auto 0.5 % (0-4); Hematocrit 32.8 % (42.0-52.0); Imm Gran Abs Auto 0.13 X10*3/uL (0.00-0.03); Imm Gran Pct Auto 0.9 % (0.0-0.4); Lymphocytes Absolute Auto 1.1 X10*3/uL (1.2-4.9); Lymphocytes Percent Auto 7.6 % (20-40); Mean Corpuscular HGB Conc 36.6 g/dl (31.0-36.0); Mean Corpuscular Hemoglobin 31.3 pg (27.0-33.0); Mean Corpuscular Volume 85.6 fL (80.0-98.0); Mean Platelet Volume 10.5 fL (9.4-12.4); Monocytes Absolute Auto 0.9 X10*3/uL (0.1-1.2); Monocytes Percent Auto 5.9 % (2-11); Neutrophils Absolute Auto 12.8 x10*3/uL (2.0-8.3); Neutrophils Percent Auto 84.8 % (45-73); Platelet Count 176 X10*3/uL (160-400); Red Blood Count 3.83 X10*6/uL (4.60-5.80); Red Cell Distribution Width 13.3 % (11.0-16.0)
[2022-03-25 22:20] LABS: Anion Gap 13 (12-20); Blood Urea Nitrogen 26 mg/dL (9-16); Calcium 11.3 mg/dL (8.4-10.2); Carbon Dioxide 34 mmol/L (22-29); Chloride 93 mmol/L (96-108); Creatinine Clr Calc Pharmacy 9.9; Estimated Glomerular Filt Rate 8; Glucose Random 141 mg/dL (60-115); Potassium 2.8 mmol/L (3.3-5.1); Sodium 137 mmol/L (135-145)
[2022-03-25 23:45] VITALS: BP 220/116; PULSE 87; RESP 16; TEMP 36.5; O2SAT 95
--- NOTE | 2022-03-26 00:06 | ED.ABDPAIN ---
HPI - Abdominal Pain General Chief Complaint: Abdominal Pain Stated Complaint: Abdominal pain Time Seen by Provider: 03/25/22 22:19 Source: patient Mode of arrival: ambulatory Limitations: no limitations History of Present Illness HPI narrative: Patient comes to the emergency room complaining of abdominal pain for 2 days. Patient states he has diffuse pain, no nausea vomiting or diarrhea. Patient states that he dialyzes himself every day, has not had any issues in the past with dialysis. Patient still produces urine. Patient states that he has been coughing more than usual. No chest pain or shortness of breath Related Data Home Medications Medication Instructions Recorded Confirmed furosemide 40 mg tablet 1 tab PO QAM 02/17/21 02/17/21 calcitriol 0.25 mcg capsule 0.25 mcg PO Q OTHER DAY 05/05/21 blood sugar diagnostic (FreeStyle #10 ea 03/16/22 Lite Strips) calcium carbonate 600 mg-vitamin 2 tab PO QAM 03/16/22 D3 10 mcg (400 unit) tablet carvedilol 6.25 mg tablet 6.25 mg PO 03/16/22 insulin detemir U-100 100 unit/mL 40 unit subcut DAILY 03/16/22 (3 mL) subcutaneous pen (Levemir FlexTouch U-100 Insulin) insulin syringe-needle U-100 0.5 #10 ea 03/16/22 mL 31 gauge x 5/16 (TRUEplus Insulin) lancets 33 gauge (TRUEplus Lancets) #100 ea 03/16/22 pen needle, diabetic 31 gauge x #50 ea 03/16/22 1/4 (UltiCare Pen Needle) Previous Rx's Medication Instructions Recorded acetaminophen 325 mg tablet 325 mg PO Q4H PRN Pain #30 tabs 02/20/21 albuterol sulfate 90 mcg/actuation 2 puff inhalation QID PRN 02/20/21 aerosol inhaler Shortness Of Breath Or Wheezing #8.5 grams aspirin 81 mg tablet,delayed 81 mg PO QAM #30 tabs 02/20/21 release atorvastatin 10 mg tablet 10 mg PO BEDTIME #30 tabs 02/20/21 ferrous sulfate 325 mg (65 mg 325 mg PO DAILY #30 tabs 02/20/21 iron) tablet fluticasone propionate 50 2 spray intranasal DAILY PRN 02/20/21 mcg/actuation nasal Allergy Symptoms #16 grams spray,suspension tamsulosin 0.4 mg capsule 0.4 mg PO BEDTIME #30 caps 02/20/21 Allergies Allergy/AdvReac Type Severity Reaction Status Date / Time No Known Allergies Allergy Verified 03/25/22 21:55 [No Known Allergies*] Review of Systems Review of Systems Constitutional : No Weight loss, No Fever, No Chills, No Night Sweats, No Fatigue, No Malaise ENT/Mouth : No Hearing loss, No Ear Pain, No Nasal Congestion, No Sinus Pain, No Hoarseness, No sore throat, No Rhinorrhea, No Swallowing Difficulty Eyes: No Eye Pain, No Swelling, No Redness, No Foreign Body, No Discharge, No Vision Changes Cardiovascular : No Chest Pain, No SOB, No Dyspnea on Exertion, No Orthopnea, No Edema, No Palpitations Respiratory : No Cough, No Sputum, No Wheezing, No Smoke Exposure, No Dyspnea Gastrointestinal : No Nausea, No Vomiting, No Diarrhea, No Constipation, complaining of diffuse abdominal pain Genitourinary : no irregular bleeding, No Dysuria, No Urinary Frequency, No Hematuria, No Urinary Incontinence, No Urgency, No Flank Pain, No Urinary Flow Changes, No Hesitancy Musculoskeletal : No joint pain, No Myalgias, No Joint Swelling Skin : No Skin Lesions, No rash Neuro : No Weakness, No Numbness, No Paresthesias, No Loss of Consciousness, No Dizziness, No Headache Psych : No Anxiety/Panic, No Depression, No SI/HI/AH/VH, No Social Issues, Heme/Lymph: No Bruising, No Bleeding,No Lymphadenopathy Endocrine : No Polyuria, No Polydipsia, No Temperature Intolerance [facility] Past Medical History Medical History Asthma Diabetes Hypertension Kidney disease Surgical History Hx of colonoscopy Family History Family History Sister Diabetes Social History Social History Household Members: Friend(s) Housing: Apartment Do you presently have visiting nurse or other home services: No Alcohol intake: current Alcohol intake frequency: a few times a month Alcohol type: beer Patient Tobacco Use Status: Never used Tobacco e-Cigarette/Vaping Use: Never Used Advance Directives: No Advance Directives Information Provided: No service: No Current occupational status: 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 Oriented X3. No acute distress. Eyes: Pupils equal, round and reactive to light. ENT: Pharynx normal. Neck: Normal inspection. Neck supple. No lymph nodes noted. No crepitus CVS: Normal heart rate and rhythm. Pulses normal. Normal S1 and S2 Respiratory: No respiratory distress. Breath sounds normal. No Wheezing. No rales Abdomen: Soft , nondistended, nontender, home dialysis ports in place, no erythema or cellulitis in the abdomen, mild pain to palpation diffusely, no guarding, no rebound Skin: Skin warm and dry. Normal skin color. Normal skin turgor. Extremities: No lower extremity edema. No Lacerations. No Rash Neuro: Oriented X 3. No motor deficit. No sensory deficit. Moving all extremities. No slurred speech. CN 2 through 12 grossly intact Psych: calm, cooperative, normal affect Course Course Course Narrative: Imaging pending. Chest x-ray and CT scan of the abdomen pending. Patient has new leukocytosis. Patient has a potassium of 2.8, replaced orally. Patient's initial blood pressure was 220 systolic. Patient was given 5 mg of labetalol, current blood pressure 160 systolic. Patient states that this time he feels very well, has no abdominal pain, no chest pain or shortness of breath. Chest x-ray negative for pneumonia. Urinalysis negative. Patient has no fever, blood pressure improved to 160/85 systolic. Patient is due for dialysis tomorrow. I checked patients abdomen multiple times, pt said that he had no pain at all even on deep palpation. Peritoneal fluid infection is not suspected. Patient's white blood cell is elevated, the only thing that is pending is the peritoneal fluid labs. Patient will be empirically covered with ceftriaxone , at this time, 03:22, sepsis is not suspected. please f/u potassium level, troponin, peritoneal fluid labs Sign-out given to Dr. Raghavendra BRISCOE - Abdominal Pain Lab Data Result diagrams: 03/25/22 21:48 03/25/22 21:48 Labs: Lab Results 03/25/22 03/25/22 03/26/22 Range/Units 21:48 21:48 00:36 WBC 15.0 H (4.8-10.8) X10*3/uL RBC 3.83 L (4.60-5.80) X10*6/uL Hgb 12.0 L (14.0-18.0) g/dl Hct 32.8 L (42.0-52.0) % MCV 85.6 (80.0-98.0) fL MCH 31.3 (27.0-33.0) pg MCHC 36.6 H (31.0-36.0) g/dl RDW 13.3 (11.0-16.0) % Plt Count 176 (160-400) X10*3/uL MPV 10.5 (9.4-12.4) fL Immature Gran % (Auto) 0.9 H (0.0-0.4) % Neut % (Auto) 84.8 H (45-73) % Lymph % (Auto) 7.6 L (20-40) % Knox % (Auto) 5.9 (2-11) % Eos % (Auto) 0.5 (0-4) % Baso % (Auto) 0.3 (0-2) % Lymph # (Auto) 1.1 L (1.2-4.9) X10*3/uL Knox # (Auto) 0.9 (0.1-1.2) X10*3/uL Eos # (Auto) 0.1 (0.0-0.4) X10*3/uL Baso # (Auto) 0.0 (0.0-0.2) X10*3/uL Abs Immat Gran (auto) 0.13 H (0.00-0.03) X10*3/uL Absolute Neuts (auto) 12.8 H (2.0-8.3) x10*3/uL Absolute Nucleated RBC 0.000 (0.0-0.012) X10*3/uL Nucleated RBC % (auto) 0.0 (0.0-0.2) /100WBC Sodium 137 (135-145) mmol/L Potassium 2.8 L D (3.3-5.1) mmol/L Chloride 93 L (96-108) mmol/L Carbon Dioxide 34 H (22-29) mmol/L Anion Gap 13 (12-20) BUN 26 H (9-16) mg/dL Creatinine 7.20 H* (0.5-1.4) mg/dL Estim Creat Clear Calc 9.9 Estimated GFR 8 Random Glucose 141 H D (60-115) mg/dL Lactic Acid 1.7 (0.5-2.0) mmol/L Calcium 11.3 H D (8.4-10.2) mg/dL Urine Color Urine Appearance Urine pH (5.0-8.0) Ur Specific Revere (1.005-1.025) Urine Protein (Neg-Trace) mg/dL Urine Glucose (UA) (Negative) mg/dL Urine Ketones (Negative) mg/dL Urine Blood (Negative) Urine Nitrite (Negative) Ur Leukocyte Esterase (Negative) Urine RBC (0-2) /HPF Urine WBC (0-5) /HPF Ur Squamous Epith Cells (0-2) /HPF Urine Bacteria (None Seen) Hyaline Casts (0-2) /LPF 03/26/22 Range/Units 02:22 WBC (4.8-10.8) X10*3/uL RBC (4.60-5.80) X10*6/uL Hgb (14.0-18.0) g/dl Hct (42.0-52.0) % MCV (80.0-98.0) fL MCH (27.0-33.0) pg MCHC (31.0-36.0) g/dl RDW (11.0-16.0) % Plt Count (160-400) X10*3/uL MPV (9.4-12.4) fL Immature Gran % (Auto) (0.0-0.4) % Neut % (Auto) (45-73) % Lymph % (Auto) (20-40) % Knox % (Auto) (2-11) % Eos % (Auto) (0-4) % Baso % (Auto) (0-2) % Lymph # (Auto) (1.2-4.9) X10*3/uL Knox # (Auto) (0.1-1.2) X10*3/uL Eos # (Auto) (0.0-0.4) X10*3/uL Baso # (Auto) (0.0-0.2) X10*3/uL Abs Immat Gran (auto) (0.00-0.03) X10*3/uL Absolute Neuts (auto) (2.0-8.3) x10*3/uL Absolute Nucleated RBC (0.0-0.012) X10*3/uL Nucleated RBC % (auto) (0.0-0.2) /100WBC Sodium (135-145) mmol/L Potassium (3.3-5.1) mmol/L Chloride (96-108) mmol/L Carbon Dioxide (22-29) mmol/L Anion Gap (12-20) BUN (9-16) mg/dL Creatinine (0.5-1.4) mg/dL Estim Creat Clear Calc Estimated GFR Random Glucose (60-115) mg/dL Lactic Acid (0.5-2.0) mmol/L Calcium (8.4-10.2) mg/dL Urine Color Yellow Urine Appearance Clear Urine pH 6.5 (5.0-8.0) Ur Specific Revere 1.010 (1.005-1.025) Urine Protein >=1000 (4+) H (Neg-Trace) mg/dL Urine Glucose (UA) 100 H (Negative) mg/dL Urine Ketones Negative (Negative) mg/dL Urine Blood Small (1+) H (Negative) Urine Nitrite Negative (Negative) Ur Leukocyte Esterase Negative (Negative) Urine RBC 0-2 (0-2) /HPF Urine WBC 0-5 (0-5) /HPF Ur Squamous Epith Cells 0-2 (0-2) /HPF Urine Bacteria None Seen (None Seen) Hyaline Casts 0-2 (0-2) /LPF Imaging Data CT scan - abdomen: Radiologist's impression: FINDINGS: LUNG BASES: The visualized lung bases are unremarkable.? LIVER, GALLBLADDER, AND BILIARY TREE: The liver is normal in size, shape, and attenuation. No focal hepatic lesion or biliary ductal dilatation is identified. The gallbladder appears contracted with cholelithiasis versus gallbladder wall calcification.? PANCREAS: Partially atrophic.? SPLEEN: Unremarkable.? ADRENAL GLANDS: Unremarkable.? KIDNEYS AND URETERS: No hydronephrosis or obstructing calculi. Nonspecific bilateral perinephric stranding.? BLADDER: Mildly distended and grossly unremarkable.? GASTROINTESTINAL TRACT: No evidence of bowel obstruction. There is prominent submucosal fat within much of the colon, a finding which can be associated with prior inflammation. No convincing evidence for acute colitis. Trace free fluid is present. No free air is seen.? ABDOMINAL WALL: Peritoneal dialysis catheter enters via the left anterior abdominal wall, terminating in the left lower quadrant.? LYMPH NODES: Normal. VASCULAR: Scattered atherosclerotic calcifications. PELVIC VISCERA: Prostate gland is enlarged, measuring 5.8 cm in transverse dimension.? OSSEOUS STRUCTURES: Scattered degenerative changes are noted in the spine.? CT/CT abdomen pelvis wo con IMPRESSION: 1.? Peritoneal dialysis catheter terminates in the left lower quadrant. Trace fluid in the abdomen and pelvis. 2.? No acute bowel abnormality identified. Prominence of mucosal fat throughout the colon may reflect sequelae of prior inflammation. 3.? Contracted gallbladder with cholelithiasis versus gallbladder wall calcifications. 4.? Enlarged prostate gland. ? Discharge Plan Discharge Clinical Impression: Abdominal pain, Acute hypokalemia, Hypertensive urgency Patient Disposition: Still a Patient Instructions: Hypokalemia (ED), Abdominal Pain (ED), Hypertension (ED) Prescriptions: No Action furosemide 40 mg tablet 1 tab PO QAM acetaminophen 325 mg tablet 325 mg PO Q4H PRN (Reason: Pain) Qty: 30 0RF atorvastatin 10 mg tablet 10 mg PO BEDTIME Qty: 30 0RF aspirin 81 mg tablet,delayed release (DR/EC) 81 mg PO QAM Qty: 30 0RF tamsulosin 0.4 mg capsule 0.4 mg PO BEDTIME Qty: 30 0RF ferrous sulfate 325 mg (65 mg iron) tablet 325 mg PO DAILY Qty: 30 0RF albuterol sulfate 90 mcg/actuation HFA aerosol inhaler 2 puff inhalation QID PRN (Reason: Shortness Of Breath Or Wheezing) Qty: 8.5 0RF fluticasone propionate 50 mcg/actuation spray,suspension 2 spray intranasal DAILY PRN (Reason: Allergy Symptoms) Qty: 16 0RF calcitriol 0.25 mcg capsule 0.25 mcg PO Q OTHER DAY (DME) lancets [TRUEplus Lancets] 33 gauge misc See Rx Instructions .ROUTE TID Qty: 100 Rx Instructions: As directed (DME) FreeStyle Lite Strips Strip See Rx Instructions Not Applicable .MEDSUPPLY Qty: 10 Rx Instructions: As directed Levemir FlexTouch U-100 Insuln 100 unit/mL (3 mL) insulin pen 40 unit subcut DAILY carvedilol 6.25 mg tablet 6.25 mg PO (DME) pen needle, diabetic [UltiCare Pen Needle] 31 gauge x 1/4 needle See Rx Instructions .ROUTE DAILY Qty: 50 Rx Instructions: As directed calcium carbonate-vitamin D3 600 mg-10 mcg (400 unit) tablet 2 tab PO QAM (DME) insulin syringe-needle U-100 [TRUEplus Insulin] 0.5 mL 31 gauge x 516 syringe See Rx Instructions .ROUTE DAILY Qty: 10 Rx Instructions: As directed
[2022-03-26] MEDS: Potassium Chloride Packet 20 MEQ PACKET 40 MEQ PO (00:42)
[2022-03-26 00:59] LABS: Lactic Acid 1.7 mmol/L (0.5-2.0)
[2022-03-26 01:19] VITALS: BP 160/85; PULSE 83; RESP 16; O2SAT 98
[2022-03-26 02:29] LABS: Appearance Urine Clear; Color Urine Yellow; Glucose Urine UA 100 mg/dL (Negative); Leukocyte Esterase Urine Negative (Negative); Nitrite Urine Negative (Negative); PH 6.5 (5.0-8.0); Urine Blood Small (1+) (Negative); Urine Ketones Negative (Negative); Urine Protein >=1000 (4+) mg/dL (Neg-Trace)
[2022-03-26 02:44] LABS: Bacteria Urine None Seen (None Seen); Hyaline Casts Urine 0-2 /LPF (0-2); RBC Urine 0-2 /HPF (0-2); Squamous Epithelial Cell Urine 0-2 /HPF (0-2); WBC Urine 0-5 /HPF (0-5)
--- NOTE | 2022-03-26 02:53 | ECG_ITS ---
Test Reason : HYPOKALEMIA Blood Pressure : / mmHG Vent. Rate : 079 BPM Atrial Rate : 079 BPM P-R Int : 156 ms QRS Dur : 108 ms QT Int : 366 ms P-R-T Axes : 049 -11 267 degrees QTc Int : 419 ms Normal sinus rhythm ST & T wave abnormality, consider inferior ischemia ST & T wave abnormality, consider anterolateral ischemia Abnormal ECG When compared with ECG of 17-FEB-2021 15:43, ST now depressed in Inferior leads ST now depressed in Anterolateral leads T wave inversion now evident in Inferior leads T wave inversion now evident in Anterolateral leads Referred By: Johana Almeida Electronically Signed By:CECILY DORSEY
[2022-03-26] MEDS: cefTRIAXone sodium 2 GM in 0.9 % Sodium Chloride 50 ML IV (03:35)
[2022-03-26 03:45] LABS: Anion Gap 14 (12-20); Blood Urea Nitrogen 28 mg/dL (9-16); Calcium 10.8 mg/dL (8.4-10.2); Carbon Dioxide 34 mmol/L (22-29); Chloride 92 mmol/L (96-108); Creatinine Clr Calc Pharmacy 9.6; Estimated Glomerular Filt Rate 7; Glucose Random 114 mg/dL (60-115); Potassium 2.7 mmol/L (3.3-5.1); Sodium 137 mmol/L (135-145)
[2022-03-26 04:28] LABS: Troponin-I High Sensitivity 155.4 ng/L (<3.5-35.0)
[2022-03-26] MEDS: Potassium Chloride/H20 10 MEQ/100 ML PIGGYBACK 100 MEQ IV ×2 (04:28→06:04)
--- NOTE | 2022-03-26 04:46 | PC.NURSE ---
fireproof door assembler to bedside to discuss special peritoneal dialysis access as MD is still looking to obtain a peritoneal fluid sample for testing. Pt and daughter at bedside expressing concerns about catheter tip being exposed and for how long it would be exposed for while staff attempted to obtain a fluid sample. [facility] [place] the pt's peritoneal dialysis cap and family is adament that the cap that was removed cannot be replaced. Per MD Mabry recommendation, daughter at bedside will go home and retrieve the necessary cap/covering that will allow staff to obtain the fluid sample as requested. RN reassured the familiy that staff will assist to ensure that the catheter is uncovered or exposed for a limited amount of time. Pt and daughter agreeable, MD aware. Staff to call lab to ensure all necessary tubes/collection specimens are correct.
--- NOTE | 2022-03-26 04:58 | PC.NURSE ---
Per chemistry, pt's peritoneal fluid can be sent down in 2 plain red tops, 1 lav and 1 green top tube
[2022-03-26 07:27] VITALS: BP 166/87; PULSE 68; RESP 18; TEMP 37.3; O2SAT 95
[2022-03-26 07:38] LABS: MN% 99.2 %; PMN% 0.8 %; RBC Peritoneal Fluid 0.002 X10*6/uL; WBC Peritoneal Fluid 2.653 X10*3/uL
[2022-03-26 07:45] LABS: BF Shift QC OK YES; Lymphocyte Peritoneal Fl 1 %; Monocytes Peritoneal Fl 3 %; Neutrophils Peritoneal Fluid 97 %
--- NOTE | 2022-03-26 08:15 | PC.NURSE ---
Pt awake, A&Ox4, ambulatory w/no assistance. K+ completed at this time. OOB to BR with no assistance. Denies pain at this time. Awaiting repeat labs. Call best within reach. Will continue to monitor.
[2022-03-26 08:41] LABS: Potassium 3.2 mmol/L (3.3-5.1)
[2022-03-26 08:58] LABS: Troponin-I High Sensitivity 167.2 ng/L (<3.5-35.0)
[2022-03-26 11:12] LABS: COVID-19 Test Negative (Negative); IDNOW Serial# 16C4AD1C
--- NOTE | 2022-03-26 11:20 | PC.NURSE ---
@ 1116 CALL PLACED TO [facility] TX LINE @ DR FORMAN REQUST S/P [facility] DENIAL OF TRANSFER D/T THEM BEING CLOSED TO MOST MEDICAL TRANSFERS. SCOTTY ANSWERS, TAKES PT INFO THEN ASKS TO SPEAK WITH DR DASIA FORMAN TAKES OVER CALL RIGHT AWAY.
--- NOTE | 2022-03-26 11:35 | PC.NURSE ---
PER DR FORMAN THIS PT IS ACCEPTED @ [facility] FOR ER TO ER TRANSFER BY DR MAZARIEGOS WITH [facility] NEEDING BREAK OUT MAN AND OXYGEN @ 2LPM VIA [place] TO SUPPORT CARDIAC HEALTH
--- NOTE | 2022-03-26 12:02 | PC.NURSE ---
@ NOON [facility] CALLED FOR ALS TRANSPORT FOR THIS PT TO [facility] ER PT INFO TAKEN, THEN TOLD THEY NEED TO CALL BACK WITH ETA
--- NOTE | 2022-03-26 12:13 | PM.CNCAR ---
History of Present Illness History of Present Illness Date of Service: 03/26/22 Chief complaint: Abdominal pain Narrative: This is a cardiology consultation regarding abnormal EKG and elevated troponins. Patient denies any history of cardiac issues including coronary disease or cardiomyopathy or in fact anything cardiac related at all. It seems that he has ESRD on peritoneal dialysis. He mainly came for abdominal pain and denies any chest pain or any other clear cardiac symptoms. Multiple medical comorbidities including type 2 diabetes, hypertension, dyslipidemia. We have been asked to assess from cardiac. Review of Systems Review of Systems: Yes all other systems are reviewed and are negative Constitutional: Constitutional: Reports as per HPI Eyes: Eyes: Reports as per HPI ENT: Reports as per HPI Cardiovascular: Cardiovascular: Reports as per HPI, Denies acrocyanosis, Denies cool extremities, Denies chest pain, Denies leg edema, Denies lightheadedness, Denies palpitations and Denies dyspnea Respiratory: Respiratory: Reports as per HPI, Reports no additional respiratory complaints and Denies dyspnea Gastrointestinal: Gastrointestinal: Reports as per HPI, Reports no additional gastrointestinal complaints and Reports abdominal pain Genitourinary: Genitourinary: Reports no additional male genitourinary complaints and Reports as per HPI Musculoskeletal: Musculoskeletal: Reports no additional musculoskeletal complaints and Reports as per HPI Integumentary/Breasts: Skin/Breast: Reports system reviewed and no additional complaints, except as docu Neurologic: Reports system reviewed and no additional complaints, except as documented and Reports as per HPI Psychiatric: Psychiatric: Reports no additional psychiatric complaints and Reports as per HPI Endocrine: Endocrine: Reports no additional endocrine complaints, Reports as per HPI and Denies palpitations Hematologic/Lymphatic: Hematologic/Lymphatic: Reports no additional hematologic/lymphatic complaints and Reports as per HPI Allergic/Immunologic: Allergic/Immunologic: Reports no additional allergic/immunologic complaints and Reports as per HPI PMF Past Medical History Medical History Asthma Diabetes Hypertension Kidney disease Family History Family History Sister Diabetes Pertinent family history: Per patient, multiple family members have diabetes. 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 Allergies Allergy/AdvReac Type Severity Reaction Status Date / Time No Known Allergies Allergy Verified 03/25/22 21:55 [No Known Allergies*] Active Medications: Current Medications Pharmacy Consult (Consult Rx Perform Med Rec) 1 each MISCELLANE ONCE PRN PRN Reason: Consult order Home Medications Medication Instructions Recorded Confirmed Last Taken Type furosemide 40 mg tablet 1 tab PO QAM 02/17/21 02/17/21 02/17/21 History calcitriol 0.25 mcg capsule 0.25 mcg PO Q OTHER DAY 05/05/21 Unknown History blood sugar diagnostic (FreeStyle #10 ea 03/16/22 Unknown History Lite Strips) calcium carbonate 600 mg-vitamin 2 tab PO QAM 03/16/22 Unknown History D3 10 mcg (400 unit) tablet carvedilol 6.25 mg tablet 6.25 mg PO 03/16/22 Unknown History insulin detemir U-100 100 unit/mL 40 unit subcut DAILY 03/16/22 Unknown History (3 mL) subcutaneous pen (Levemir FlexTouch U-100 Insulin) insulin syringe-needle U-100 0.5 #10 ea 03/16/22 Unknown History mL 31 gauge x 5/16 (TRUEplus Insulin) lancets 33 gauge (TRUEplus Lancets) #100 ea 03/16/22 Unknown History pen needle, diabetic 31 gauge x #50 ea 03/16/22 Unknown History / (UltiCare Pen Needle) Physical Exam Vital Signs: Vital Signs: Last Vital Signs Temp 99.1 F 03/26/22 07:27 Pulse 68 03/26/22 07:27 Resp 18 03/26/22 07:27 BP 166/87 H 03/26/22 07:27 Pulse Ox 95 03/26/22 07:27 O2 Del Method 03/26/22 07:27 BMI result Body Mass Index 31.6 Const: General: comfortable and no acute distress Orientation/consciousness: patient oriented x3 HEENT: Other: Unremarkable Head: Yes normal to inspection Neck: Neck: Yes normal visual inspection Chest: Chest palpation & inspection: normal inspection of the chest Resp: Auscultation: clear to auscultation bilaterally Cardio: Palpation: normal PMI Heart sounds: S1 normal heart sound present, S2 normal heart sound present, no gallops, no murmurs and no rubs GI: Palpation (GI): Soft to palpation Back/Spine/Pelvis: Other: unremarkable Skin: General skin exam: no rashes or lesions noted Neuro: General: patient oriented x3 Extrem: General: Yes normal to inspection Psych: Mental Status: mental status grossly normal Objective Labs and Meds Result diagrams: 03/25/22 21:48 03/26/22 08:28 Lab results: Laboratory Results - last 24 hr 03/25/22 03/25/22 03/26/22 21:48 21:48 00:36 WBC 15.0 H RBC 3.83 L Hgb 12.0 L Hct 32.8 L MCV 85.6 MCH 31.3 MCHC 36.6 H RDW 13.3 Plt Count 176 MPV 10.5 Immature Gran % (Auto) 0.9 H Neut % (Auto) 84.8 H Lymph % (Auto) 7.6 L [place] % (Auto) 5.9 Eos % (Auto) 0.5 Baso % (Auto) 0.3 Lymph # (Auto) 1.1 L [place] # (Auto) 0.9 Eos # (Auto) 0.1 Baso # (Auto) 0.0 Abs Immat Gran (auto) 0.13 H Absolute Neuts (auto) 12.8 H Absolute Nucleated RBC 0.000 Nucleated RBC % (auto) 0.0 Sodium 137 Potassium 2.8 L D Chloride 93 L Carbon Dioxide 34 H Anion Gap 13 BUN 26 H Creatinine 7.20 H* Estim Creat Clear Calc 9.9 Estimated GFR 8 Random Glucose 141 H D Lactic Acid 1.7 Calcium 11.3 H D Troponin I High Sens Urine Color Urine Appearance Urine pH Ur Specific [place] Urine Protein Urine Glucose (UA) Urine Ketones Urine Blood Urine Nitrite Ur Leukocyte Esterase Urine RBC Urine WBC Ur Squamous Epith Cells Urine Bacteria Hyaline Casts Peritoneal WBC Peritoneal RBC Periton Neutrophils Periton Lymphocytes Peritoneal Monocytes COVID-19 (EDDIE) COVID-19 Clin Com 03/26/22 03/26/22 03/26/22 02:22 03:15 03:15 WBC RBC Hgb Hct MCV MCH MCHC RDW Plt Count MPV Immature Gran % (Auto) Neut % (Auto) Lymph % (Auto) [place] % (Auto) Eos % (Auto) Baso % (Auto) Lymph # (Auto) [place] # (Auto) Eos # (Auto) Baso # (Auto) Abs Immat Gran (auto) Absolute Neuts (auto) Absolute Nucleated RBC Nucleated RBC % (auto) Sodium 137 Potassium 2.7 L Chloride 92 L Carbon Dioxide 34 H Anion Gap 14 BUN 28 H Creatinine 7.42 H* Estim Creat Clear Calc 9.6 Estimated GFR 7 Random Glucose 114 Lactic Acid Calcium 10.8 H Troponin I High Sens 155.4 H* Urine Color Yellow Urine Appearance Clear Urine pH 6.5 Ur Specific [place] 1.010 Urine Protein >=1000 (4+) H Urine Glucose (UA) 100 H Urine Ketones Negative Urine Blood Small (1+) H Urine Nitrite Negative Ur Leukocyte Esterase Negative Urine RBC 0-2 Urine WBC 0-5 Ur Squamous Epith Cells 0-2 Urine Bacteria None Seen Hyaline Casts 0-2 Peritoneal WBC Peritoneal RBC Periton Neutrophils Periton Lymphocytes Peritoneal Monocytes COVID-19 (EDDIE) COVID-Spherix 03/26/22 03/26/22 03/26/22 05:40 08:28 08:28 WBC RBC Hgb Hct MCV MCH MCHC RDW Plt Count MPV Immature Gran % (Auto) Neut % (Auto) Lymph % (Auto) [place] % (Auto) Eos % (Auto) Baso % (Auto) Lymph # (Auto) [place] # (Auto) Eos # (Auto) Baso # (Auto) Abs Immat Gran (auto) Absolute Neuts (auto) Absolute Nucleated RBC Nucleated RBC % (auto) Sodium Potassium 3.2 L Chloride Carbon Dioxide Anion Gap BUN Creatinine Estim Creat Clear Calc Estimated GFR Random Glucose Lactic Acid Calcium Troponin I High Sens 167.2 H* Urine Color Urine Appearance Urine pH Ur Specific [place] Urine Protein Urine Glucose (UA) Urine Ketones Urine Blood Urine Nitrite Ur Leukocyte Esterase Urine RBC Urine WBC Ur Squamous Epith Cells Urine Bacteria Hyaline Casts Peritoneal WBC 2.653 Peritoneal RBC 0.002 Periton Neutrophils 97 Periton Lymphocytes 1 Peritoneal Monocytes 3 COVID-19 (EDDIE) COVID-19 [employer] 03/26/22 10:43 WBC RBC Hgb Hct MCV MCH MCHC RDW Plt Count MPV Immature Gran % (Auto) Neut % (Auto) Lymph % (Auto) [place] % (Auto) Eos % (Auto) Baso % (Auto) Lymph # (Auto) [place] # (Auto) Eos # (Auto) Baso # (Auto) Abs Immat Gran (auto) Absolute Neuts (auto) Absolute Nucleated RBC Nucleated RBC % (auto) Sodium Potassium Chloride Carbon Dioxide Anion Gap BUN Creatinine Estim Creat Clear Calc Estimated GFR Random Glucose Lactic Acid Calcium Troponin I High Sens Urine Color Urine Appearance Urine pH Ur Specific [place] Urine Protein Urine Glucose (UA) Urine Ketones Urine Blood Urine Nitrite Ur Leukocyte Esterase Urine RBC Urine WBC Ur Squamous Epith Cells Urine Bacteria Hyaline Casts Peritoneal WBC Peritoneal RBC Periton Neutrophils Periton Lymphocytes Peritoneal Monocytes COVID-19 (EDDIE) Negative COVID-19 Clin Com See Note ECG Interpretation: EKG with sinus rhythm and inferior as well as anterolateral ST depression. These findings are new compared to EKG from last year which seemed essentially unremarkable. Imaging Radiologist's impression: Impressions Chest X-Ray 03/26/22 00:19 IMPRESSION: No acute cardiopulmonary findings. Abdomen/Pelvis CT 03/26/22 00:30 IMPRESSION: 1. Peritoneal dialysis catheter terminates in the left lower quadrant. Trace fluid in the abdomen and pelvis. 2. No acute bowel abnormality identified. Prominence of mucosal fat throughout the colon may reflect sequelae of prior inflammation. 3. Contracted gallbladder with cholelithiasis versus gallbladder wall calcifications. 4. Enlarged prostate gland. Assessment and Plan (1) Abnormal EKG: Status: Acute (2) Elevated troponin: Status: Acute (3) Hypertensive urgency: Status: Acute (4) Abdominal pain: Status: Acute Plan High sensitivity troponins are 155 and 167. Last year, they were completely normal. Creatinine is 7.4. Potassium is 3.2. Mild leukocytosis. EKG as described above shows inferior and anterolateral ST depression which is new. Overall, multiple cardiovascular risk factors and he could have underlying coronary disease as well. Troponin leak as well as EKG changes could be from demand. Less likely primary. Initial blood pressure was 220/116 mm Hg but currently much improved but still not in the normal range. Can resume his home bleed pressure meds. Also use aspirin, statins. Diabetes management. From cardiac, he will need an echocardiogram to start with. Based on the findings including any presence of wall motion abnormalities as well as EF, will need ischemia workup with either stress test or cardiac catheterization. Advised admission but it seems that he cannot be admitted to [facility] due to unavailability of peritoneal dialysis. Refused acceptance from [facility]. Hence going to [facility]. Discussed with Dr. Hutton from ER. Procedures Date of Service Date of Service: 03/26/22
--- NOTE | 2022-03-26 12:36 | PC.NURSE ---
ACTION AMB HERE NOW FOR ALS TX TO [facility] ER @ THIS TIME
--- NOTE | 2022-03-26 13:15 | PC.NURSE ---
RN to RN report given to Yamile at .
== END 2022-03-26 12:45 | disposition short-term general hospital (02) ==
PROVIDERS: Emergency Medicine; Emergency Provider Emergency Medicine; PCP Nurse Practitioner Primary Care
DX: R10.9 Unspecified abdominal pain (principal); E87.6 Hypokalemia; I16.0 Hypertensive urgency; R94.31 Abnormal electrocardiogram [ECG] [EKG]; R77.8 Other specified abnormalities of plasma proteins; Z20.822 Contact with and (suspected) exposure to COVID-19; E11.22 Type 2 diabetes mellitus with diabetic chronic kidney disease; I12.0 Hypertensive chronic kidney disease with stage 5 chronic kidney disease or end stage renal disease; N18.6 End stage renal disease; Z99.2 Dependence on renal dialysis; Z79.4 Long term (current) use of insulin; Z79.899 Other long term (current) drug therapy
CPT/HCPCS: 36415; 71045; 74176; 80048; 81001; 83605; 84132; 84484; 85025; 87040; 87071; 87073; 87205; 87635; 89051; 93005; 96365; 96366; 96367; 96375; 99285; J0696

== ENCOUNTER 2022-05-11 07:43 | Day surgery (SDC) | payer OTHER, SELFPAY ==
--- NOTE | 2022-05-10 14:27 | P.CONAN_ITS ---
Documented by User: Selin Mckeon NP 05/10/22 15:29 HPI - Anesthesia Eval Consult details Narrative: 71yo M for Insert PDC laparoscopic Transfer from [facility] ED to [facility] 02/2022 for EKG changes. Per records, likely demand ischemia r/t htn urgency and ESRD. Nuc stress and echo ok. [facility] Active Problems Active Problems: All Active Problems (Updated 03/27/22 @ 00:03 by Background Daemon) Elevated troponin (Acute) Distal radius fracture, right (Acute) End stage renal disease (Acute) Tubular adenoma of colon (Acute) Colon cancer screening (Acute) Acute on chronic kidney failure (Acute) Acute hyperkalemia (Acute) Anemia (Acute) Past Medical History Medical History Asthma Diabetes Hypertension Kidney disease Family History Family History Sister Diabetes Surgical History Surgical History Hx of colonoscopy Social History Social History Household Members: Friend(s) Housing: Apartment Do you presently have visiting nurse or other home services: No Alcohol intake: current Alcohol intake frequency: former alcohol drinker Alcohol type: beer Patient Tobacco Use Status: Never used Tobacco e-Cigarette/Vaping Use: Never Used Use of substances other than those prescribed or required for medical reasons: No Are you DNR?: No Advance Directives: No Advance Directives Information Provided: Yes service: No Current occupational status: unemployed 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 Allergies Allergy/AdvReac Type Severity Reaction Status Date / Time No Known Allergies Allergy Verified 03/25/22 21:55 [No Known Allergies*] Home Medications Medication Instructions Recorded Confirmed Last Taken Type furosemide 40 mg tablet 1 tab PO QAM 02/17/21 02/17/21 02/17/21 History calcitriol 0.25 mcg capsule 0.25 mcg PO Q OTHER DAY 05/05/21 Unknown History blood sugar diagnostic (Odinyle #10 ea 03/16/22 Unknown History Lite Strips) calcium carbonate 600 mg-vitamin 2 tab PO QAM 03/16/22 Unknown History D3 10 mcg (400 unit) tablet carvedilol 6.25 mg tablet 6.25 mg PO 03/16/22 Unknown History insulin detemir U-100 100 unit/mL 40 unit subcut DAILY 03/16/22 Unknown History (3 mL) subcutaneous pen (Levemir FlexTouch U-100 Insulin) insulin syringe-needle U-100 0.5 #10 ea 03/16/22 Unknown History mL 31 gauge x 5/16 (TRUEplus Insulin) lancets 33 gauge (TRUEplus Lancets) #100 ea 03/16/22 Unknown History pen needle, diabetic 31 gauge x #50 ea 03/16/22 Unknown History / (UltiCare Pen Needle) Exam Exam Date and Time: May 10, 2022 1427 Narrative Narrative: EKG 02/2022 Vent. Rate : 079 BPM ? ? Atrial Rate : 079 BPM ?? P-R Int : 156 ms? QRS Dur : 108 ms ? ? QT Int : 366 ms ? ? ? P-R-T Axes : 049 -11 267 degrees ?? QTc Int : 419 ms ? Normal sinus rhythm ST & T wave abnormality, consider inferior ischemia ST & T wave abnormality, consider anterolateral ischemia Abnormal ECG When compared with ECG of 17-FEB-2021 15:43, ST now depressed in Inferior leads ST now depressed in Anterolateral leads T wave inversion now evident in Inferior leads T wave inversion now evident in Anterolateral leads Nuc Stress 02/2022 mild apical/inferior wall hypoperfusion mild to moderate calcification of the LCX/RCA Cardiology recommends med management Echo 03/2022 LV systolic function mildly decreased EF 45% Global hypokinesiss without regional variation RV systolic function is normal Echogenic material is seen in the anterior pericardial space, c/w fat pad No previous echo for comparison Assessment and Plan Assessment Anesthesia Assessment: Chart Reviewed Documented by User: Monica Turpin MD 05/11/22 10:20 PMFSH Active Problems Active Problems: All Active Problems (Updated 03/27/22 @ 00:03 by Background Radha) Elevated troponin (Acute) Distal radius fracture, right (Acute) End stage renal disease (Acute) Tubular adenoma of colon (Acute) Colon cancer screening (Acute) Acute on chronic kidney failure (Acute) Acute hyperkalemia (Acute) Anemia (Acute) Notes from recent [facility] admission and diagnostic tests reviewed. Apparently EKG changes and troponin changes due to demand ischemia secondary to very high BP's. BP's have improved since that admission in February. Past Medical History Medical History Asthma Diabetes Hypertension Kidney disease Family History Family History Sister Diabetes Surgical History Surgical History Hx of colonoscopy History of Problems with Anesthesia: No Social History Social History Household Members: Friend(s) Housing: Apartment Do you presently have visiting nurse or other home services: No Alcohol intake: current Alcohol intake frequency: former alcohol drinker Alc ohol type: beer Patient Tobacco Use Status: Never used Tobacco e-Cigarette/Vaping Use: Never Used Use of substances other than those prescribed or required for medical reasons: No Are you DNR?: No Advance Directives: No Advance Directives Information Provided: Yes service: No Current occupational status: unemployed 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 [employer] 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 Allergy/AdvReac Type Severity Reaction Status Date / Time No Known Allergies Allergy Verified 03/25/22 21:55 [No Known Allergies*] Home Medications Medication Instructions Recorded Confirmed Last Taken Type furosemide 40 mg tablet 1 tab PO QAM 02/17/21 02/17/21 02/17/21 History calcitriol 0.25 mcg capsule 0.25 mcg PO Q OTHER DAY 05/05/21 Unknown History blood sugar diagnostic (FreeStyle #10 ea 03/16/22 Unknown History Lite Strips) calcium carbonate 600 mg-vitamin 2 tab PO QAM 03/16/22 Unknown History D3 10 mcg (400 unit) tablet carvedilol 6.25 mg tablet 6.25 mg PO 03/16/22 Unknown History insulin detemir U-100 100 unit/mL 40 unit subcut DAILY 03/16/22 Unknown History (3 mL) subcutaneous pen (Levemir FlexTouch U-100 Insulin) insulin syringe-needle U-100 0.5 #10 ea 03/16/22 Unknown History mL 31 gauge x 5/16 (TRUEplus Insulin) lancets 33 gauge (TRUEplus Lancets) #100 ea 03/16/22 Unknown History pen needle, diabetic 31 gauge x #50 ea 03/16/22 Unknown History / (UltiCare Pen Needle) Exam Airway Mallampati Class: III TM Dist: >3cm Neck ROM: Full Loose/Missing/Broken Teeth: No Heart: RRR Lungs: CTA Assessment and Plan Assessment Anesthesia Assessment: Anesthesia Plan Discussed Final Anesthetic Review History of Problems with Anesthesia: No NPO: Yes ASA Class: IV Final Preanesthetic Review: Meds/Allgs Chart Reviewed, Consent Obtained/Reviewed and Anes Risks/Benef Reviewed Patient Risk: High Procedure Risk: Low Anesthetic Plan Anesthetic Plan: GA Disposition: Standard PACU
[2022-05-11] VITALS (8 sets, daily range): BP systolic 97–140; BP diastolic 53–72; PULSE 71–78; RESP 17–20; TEMP 36.1–36.5; O2SAT 95–100; BMI 32.3
[2022-05-11 08:20] LABS: Glucose, Whole Blood 171 mg/dL (60-115)
[2022-05-11] MEDS: 0.9 % Sodium Chloride 1,000 ML 50 ML IVCONT (08:25)
[2022-05-11 08:56] LABS: Anion Gap 16 (12-20); Carbon Dioxide 28 mmol/L (22-29); Chloride 95 mmol/L (96-108); Potassium 4.2 mmol/L (3.3-5.1); Sodium 135 mmol/L (135-145)
--- NOTE | 2022-05-11 12:12 | W.PM.OPN ---
Operative Note Operative Note Date of Service: 05/11/22 Narrative: Preop Diagnosis: ESRD Postop Diagnosis: ESRD Operation: 1. Laparoscopic insertion of peritoneal dialysis catheter 2. Laparoscopic lysis of adhesions 3. Laparoscopic omentopexy Surgeon: Will Andrade Anesthesia: General EBL: 25cc Procedure: The patient was placed on the OR table in a supine position, with both arms abducted on padded arm boards. Lower extremity compression devices were placed. After successful induction of general endotrachial anesthesia, the patient was prepped and draped in a sterile fashion. The anesthesiologist administered the pre-operative antibiotic and placed an OG tube to suction. Local anesthesia was used before making skin incisions. Using a #11 scalpel, a 5mm incision was made in the LUQ of the abdomen, mid-clavicular line. A Veress needle was placed. The abdomen was insufflated to a pressure of 14 mmHg. A 5mm Optiview trochar was inserted through the same incision using direct visualization. Subsequently, 5mm trochars were placed in the LLQ and RUQ, under direct visualization. Thin, clear adhesions in the midline of the abdomen were lysed with laparoscopic kishor. A 10mm incision was made left lateral and superior to the umbilicus. An 8mm trochar was inserted at an angle and entered the abdomen in the midline, a few centimeters above the bladder. The PD catheter was inserted through this trochar. The end of the catheter was placed behind the bladder and the internal cuff was situated in the pre-peritoneal space. The other end of the catheter was tunneled left lateral to the 10mm incision and exited through a stab incision. The catheter was flushed with antibiotic saline and heparin-saline. It drained easily. The catheter was pexied internally to the abdominal wall using a suture passer and 2-0 silk tie. The omentum was pexied in the LUQ of the abdomen using a 2-0 silk tie and suture passer. Hemostasis was maintained. The abdomen was relieved of CO2 gas. The trochars were removed. The incisions were closed with 3-0 Vicryl subdermal stitches and 4-0 Monocryl subcuticular stitches. Surgical glue was applied. The catheter was dressed with gauze. All instrument, sponge and needle counts were correct at the end of the case.
== END 2022-05-11 13:53 | disposition home or self-care (01) ==
PROVIDERS: Nurse Practitioner; PCP Nurse Practitioner Primary Care; Visit Provider Transplant Surgery
PROC: (CPT 49324; principal; 2022-05-11 10:00)
DX: E11.22 Type 2 diabetes mellitus with diabetic chronic kidney disease (principal); I12.0 Hypertensive chronic kidney disease with stage 5 chronic kidney disease or end stage renal disease; N18.6 End stage renal disease; Z99.2 Dependence on renal dialysis; E87.6 Hypokalemia; J45.909 Unspecified asthma, uncomplicated; Z79.4 Long term (current) use of insulin; Z79.899 Other long term (current) drug therapy
CPT/HCPCS: 49324; 49326; 36415; 80051; 82947; C1752; J0690; J2250; J2370; J2405; J2795; J3010; J3370

== ENCOUNTER 2022-06-28 12:38 | Emergency (ER) | payer OTHER, SELFPAY ==
--- NOTE | ~2022-06-28 | XR_ITS ---
EXAMINATION: XR CHEST CLINICAL INFORMATION: Headache. Weakness and chest pain COMPARISON: Previous chest x-ray most recent February 2022 TECHNIQUE: 2 views of the chest were obtained. FINDINGS: No significant abnormality is noted involving the heart, lungs, mediastinum, bony thorax or soft tissues. Mild degenerative changes of the spine. XR/XR chest 2V IMPRESSION: No evidence for acute disease in the chest.
--- NOTE | ~2022-06-28 | MR_ITS ---
EXAMINATION: MR BRAIN WITHOUT CONTRAST CLINICAL INFORMATION: Right-sided numbness without weakness. COMPARISON: Head CT dated 06/28/2022. TECHNIQUE: Multiplanar, multisequence imaging of the brain was performed without contrast. Limited study with motion artifacts. FINDINGS: There is a small chronic infarct in the ventrolateral aspect of the left thalamus. The ventricles are normal in size. No mass effect or midline shift is seen. Mild chronic white matter microangiopathic changes are noted. There is a chronic lacunar infarct in the right paramedian aspect of the brenda. T2 hyperintense signal abnormality in the middle cerebellar peduncles, suggestive for secondary chronic wallerian degeneration. No extra-axial fluid collections are seen. The cerebellum is normal. The gradient refocused acquisition demonstrates no pathologic magnetic susceptibility artifact to indicate underlying acute or chronic blood products. The craniovertebral junction, marrow signal, and remaining midline structures are normal. The major intracranial flow voids at the level of the [place] are preserved. The dural venous sinus flow voids are maintained. The mastoid air cells are well aerated. Mild ethmoid sinus mucosal thickening noted. MR/MR head/brain wo con IMPRESSION: Small acute infarct in the left thalamus. 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
--- NOTE | ~2022-06-28 | CT_ITS ---
EXAMINATION: CT HEAD WITHOUT CONTRAST CLINICAL INFORMATION: Right-sided headache. Weakness. COMPARISON: None. TECHNIQUE: Contiguous axial imaging was performed from the skull base to vertex without intravenous administration of contrast. Coronal and sagittal reformatted images are performed at the CT scanner. [This CT examination was performed using dose optimization techniques as appropriate, variously including the following: *Automated exposure control *Adjustment of mA and/or kV according to patient size (this includes techniques or standardized protocols for targeted exams where dose is matched to indication/reason for exam; i.e. extremities or head) *Use of iterative reconstruction technique] DLP: 692 mGy-cm. FINDINGS: There is no evidence of acute intracranial hemorrhage or territorial infarction. No abnormal mass-effect or midline shift is seen. Honeycutt to white matter differentiation is well preserved. No extra-axial fluid collections are identified. There is generalized global volume loss. There is mild prominence of the ventricles and the sulci . There is mild hypodensity of the periventricular white matter due to chronic small vessel ischemic disease. There are vascular calcifications of the internal carotid arteries bilaterally. There is no osseous abnormality. The mastoid air cells and visualized portions of the paranasal sinuses are well-aerated. Status post right orbital lens extraction CT/CT head/brain wo IV con IMPRESSION: No acute intracranial pathology.
[2022-06-28 13:48] VITALS: BP 123/65; PULSE 97; RESP 17; TEMP 36.4; O2SAT 98; BMI 31.9
--- NOTE | 2022-06-28 14:03 | ED_ITS ---
HPI - General Adult General Chief complaint: General Medical <Tom Ledezma MD - Last Filed: 06/28/22 14:08> Stated complaint: numbness in R side leg and arm <Tom Ledezma MD - Last Filed: 06/28/22 14:08> Time Seen by Provider: 06/28/22 14:08 <Tom Ledezma MD - Last Filed: 06/28/22 14:08> Source: patient <Melissa Willett NP - Last Filed: 06/28/22 18:06> Mode of arrival: ambulatory <Melissa Willett NP - Last Filed: 06/28/22 18:06> Limitations: language barrier <Melsisa Willett NP - Last Filed: 06/28/22 18:06> History of Present Illness HPI narrative: 72-year-old [place]an-speaking male with a past medical history of ESRD with nightly peritoneal dialysis, anemia, hypertension, and diabetes presents to the emergency department with complaints of right sided numbness without weakness that has been worsening the last couple of days. Today he states he has developed a headache with right orbital pain and right posterior neck d iscomfort/tenderness. He denies any known illnesses or sick contacts. He denies any chest pain, shortness of breath, abdominal pain, change in gait, disequilibrium, dysphagia, or syncope. <Melissa Willett NP - Last Filed: 06/28/22 18:06> Onset (ago): day(s) <Melissa Willett NP - Last Filed: 06/28/22 18:06> Location: head and neck <Melissa Willett NP - Last Filed: 06/28/22 18:06> Radiation: non-radiation <Melissa Willett NP - Last Filed: 06/28/22 18:06> Severity: moderate <Melissa Willett NP - Last Filed: 06/28/22 18:06> Severity scale (1-10): 6 <Melissa Willett NP - Last Filed: 06/28/22 18:06> Quality: aching and dull <Melissa Willett NP - Last Filed: 06/28/22 18:06> Pain Consistency: constant <Melissa Willett NP - Last Filed: 06/28/22 18:06> Relieving factors: none <Melissa Willett NP - Last Filed: 06/28/22 18:06> Associated symptoms: denies other symptoms <Melissa Willett NP - Last Filed: 06/28/22 18:06> Treatments prior to arrival: none <Melissa Willett NP - Last Filed: 06/28/22 18:06> Related Data Home medications: Home Medications Medication Instructions Recorded Confirmed furosemide 40 mg tablet 1 tab PO QAM 02/17/21 02/17/21 calcitriol 0.25 mcg capsule 0.25 mcg PO Q OTHER DAY 05/05/21 blood sugar diagnostic (FreeStyle #10 ea 03/16/22 Lite Strips) calcium carbonate 600 mg-vitamin 2 tab PO QAM 03/16/22 D3 10 mcg (400 unit) tablet carvedilol 6.25 mg tablet 6.25 mg PO 03/16/22 insulin detemir U-100 100 unit/mL 40 unit subcut DAILY 03/16/22 (3 mL) subcutaneous pen (Levemir FlexTouch U-100 Insulin) insulin syringe-needle U-100 0.5 #10 ea 03/16/22 mL 31 gauge x 5/16 (TRUEplus Insulin) lancets 33 gauge (TRUEplus Lancets) #100 ea 03/16/22 pen needle, diabetic 31 gauge x #50 ea 03/16/22 1/4 (UltiCare Pen Needle) Previous Rx's Medication Instructions Recorded acetaminophen 325 mg tablet 325 mg PO Q4H PRN Pain #30 tabs 02/20/21 albuterol sulfate 90 mcg/actuation 2 puff inhalation QID PRN 02/20/21 aerosol inhaler Shortness Of Breath Or Wheezing #8.5 grams aspirin 81 mg tablet,delayed 81 mg PO QAM #30 tabs 02/20/21 release atorvastatin 10 mg tablet 10 mg PO BEDTIME #30 tabs 02/20/21 ferrous sulfate 325 mg (65 mg 325 mg PO DAILY #30 tabs 02/20/21 iron) tablet fluticasone propionate 50 2 spray intranasal DAILY PRN 02/20/21 mcg/actuation nasal Allergy Symptoms #16 grams spray,suspension tamsulosin 0.4 mg capsule 0.4 mg PO BEDTIME #30 caps 02/20/21 <Tom Ledezma MD - Last Filed: 06/28/22 14:08> Allergies/adverse reactions: Allergies Allergy/AdvReac Type Severity Reaction Status Date / Time No Known Allergies Allergy Verified 03/25/22 21:55 [No Known Allergies*] <Tom Ledezma MD - Last Filed: 06/28/22 14:08> Review of Systems Review of Systems: Yes all other systems are reviewed and are negative <Melissa Willett TRANSPORTATION PROGRAM DIRECTOR - Last Filed: 06/28/22 18:06> Constitutional: Constitutional: Reports no additional constitutional complaints, Denies chills, Denies fever(s), Reports headache(s) and Denies weakness <Melissa Willett TRANSPORTATION PROGRAM DIRECTOR - Last Filed: 06/28/22 18:06> Eyes: Eyes: Reports no additional eye complaints <Melissa Willett TRANSPORTATION PROGRAM DIRECTOR - Last Filed: 06/28/22 18:06> ENT: Reports system reviewed and no additional complaints, except as documented, Reports Normal hearing present, Denies dysphagia, Denies dizziness, Denies facial pain, Reports headache(s) and Denies disequilibrium <Melissa Willett TRANSPORTATION PROGRAM DIRECTOR - Last Filed: 06/28/22 18:06> Cardiovascular: Cardiovascular: Reports no additional cardiovascular complaints, Denies chest pain, Denies syncope and Denies dyspnea <Melissa Willett TRANSPORTATION PROGRAM DIRECTOR - Last Filed: 06/28/22 18:06> Respiratory: Respiratory: Reports no additional respiratory complaints, Denies cough and Denies dyspnea <Melissa Willett TRANSPORTATION PROGRAM DIRECTOR - Last Filed: 06/28/22 18:06> Gastrointestinal: Gastrointestinal: Reports no additional gastrointestinal complaints, Denies abdominal pain, Denies melena, Denies hematochezia, Denies change in stool character, Denies constipation, Denies dysphagia, Denies diarrhea, Denies nausea and Denies vomiting <Melissa Willett TRANSPORTATION PROGRAM DIRECTOR - Last Filed: 06/28/22 18:06> Genitourinary: Genitourinary: Reports no additional male genitourinary complaints, Denies difficulty urinating and Denies dysuria <Melissa Willett NP - Last Filed: 06/28/22 18:06> Musculoskeletal: Musculoskeletal: Reports no additional musculoskeletal complaints, Denies abnormal gait and Denies back pain <Melissa Willett NP - Last Filed: 06/28/22 18:06> Integumentary/Breasts: Skin/Breast: Reports system reviewed and no additional complaints, except as docu, Denies lesions, Denies rash and Denies sores <Melissa Willett NP - Last Filed: 06/28/22 18:06> Neurologic: Reports system reviewed and no additional complaints, except as documented, Reports Normal hearing present, Denies Abnormal speech present, Denies abnormal gait, Denies behavioral changes, Denies dizziness, Denies synco pe, Reports headache(s), Denies paresthesias, Denies disequilibrium and Denies weakness <Melissa Willett NP - Last Filed: 06/28/22 18:06> Psychiatric: Psychiatric: Reports no additional psychiatric complaints and De nies behavioral changes <Melissa Willett NP - Last Filed: 06/28/22 18:06> Endocrine: Endocrine: Reports no additional endocrine complaints, Denies polyphagia, Denies polydipsia and Denies polyuria <Melissa Willett NP - Last Filed: 06/28/22 18:06> [facility] Past Medical History Attestation statement: The following information was validated with the patient. <Melissa Willett NP - Last Filed: 06/28/22 18:06> Source: old records reviewed <Melissa Willett NP - Last Filed: 06/28/22 18:06> Medical History: Medical History Asthma Diabetes Hypertension Kidney disease <Tom Ledezma MD - Last Filed: 06/28/22 14:08> Surgical History: Surgical History Hx of colonoscopy <Tom Ledezma MD - Last Filed: 06/28/22 14:08> Family History Family History: Family History Sister Diabetes <Tom Ledezma MD - Last Filed: 06/28/22 14:08> Social History Social History: Social History Household Members: Friend(s) Housing: Apartment Do you presently have visiting nurse or other home services: No Alcohol intake: current Alcohol intake frequency: former alcohol drinker Alcohol type: beer Patient Tobacco Use Status: Never used Tobacco e-Cigarette/Vaping Use: Never Used Advance Directives: No service: No Current occupational status: unemployed 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 <Tom Ledezma MD - Last Filed: 06/28/22 14:08> Physical Exam ED Vital Signs: Vital Signs - 24 hr 06/28/22 13:48 06/28/22 14:15 06/28/22 15:41 Temperature 97.6 F 98.8 F 98.2 F Pulse Rate 97 75 77 Respiratory Rate 17 14 16 Blood Pressure 123/65 135/60 137/59 L Pulse Oximetry 98 98 Oxygen Delivery Method Room Air Room Air BMI result Body Mass Index 31.9 <Tom Ledezma MD - Last Filed: 06/28/22 14:08> Vital Signs - 24 hr 06/28/22 13:48 06/28/22 14:15 06/28/22 15:41 Temperature 97.6 F 98.8 F 98.2 F Pulse Rate 97 75 77 Respiratory Rate 17 14 16 Blood Pressure 123/65 135/60 137/59 L Pulse Oximetry 98 98 Oxygen Delivery Method Room Air Room Air BMI result Body Mass Index 31.9 <Melissa Willett NP - Last Filed: 06/28/22 18:06> Vital Signs - 24 hr 06/28/22 13:48 06/28/22 14:15 06/28/22 15:41 Temperature 97.6 F 98.8 F 98.2 F Pulse Rate 97 75 77 Respiratory Rate 17 14 16 Blood Pressure 123/65 135/60 137/59 L Pulse Oximetry 98 98 Oxygen Delivery Method Room Air Room Air BMI result Body Mass Index 31.9 <Jacky Henderson MD - Last Filed: 06/28/22 19:43> Const General: cooperative, no acute distress, alert and awake <Melissa Willett TRANSPORTATION PROGRAM DIRECTOR - Last Filed: 06/28/22 18:06> Nutritional Appearance: well nourished <Melissa Willett TRANSPORTATION PROGRAM DIRECTOR - Last Filed: 06/28/22 18:06> Orientation/consciousness: patient oriented x3 <Melissa Willett TRANSPORTATION PROGRAM DIRECTOR - Last Filed: 06/28/22 18:06> Limitations: no limitations <Melissa Willett TRANSPORTATION PROGRAM DIRECTOR - Last Filed: 06/28/22 18:06> HENMT Head: Yes normal to inspection and Yes atraumatic <Melissa Willett TRANSPORTATION PROGRAM DIRECTOR - Last Filed: 06/28/22 18:06> Ears: hearing grossly normal bilaterally and external ears normal <Melissa Willett TRANSPORTATION PROGRAM DIRECTOR - Last Filed: 06/28/22 18:06> General nose exam: Normal external nose present <Melissa Willett TRANSPORTATION PROGRAM DIRECTOR - Last Filed: 06/28/22 18:06> Face and sinus: Yes normal facial exam <Melissa Willett TRANSPORTATION PROGRAM DIRECTOR - Last Filed: 06/28/22 18:06> Mouth: Normal oral and palatal mucosa present <Melissa Willett TRANSPORTATION PROGRAM DIRECTOR - Last Filed: 06/28/22 18:06> Eyes General: appearance normal, both eyes and all related structures <Melissa Willett TRANSPORTATION PROGRAM DIRECTOR - Last Filed: 06/28/22 18:06> Alignment and Position: alignment normal <Melissa Willett TRANSPORTATION PROGRAM DIRECTOR - Last Filed: 06/28/22 18:06> Periorbital: periorbital findings normal <Melissa Willett TRANSPORTATION PROGRAM DIRECTOR - Last Filed: 06/28/22 18:06> Eyelids: Yes eyelids normal <Melissa Willett TRANSPORTATION PROGRAM DIRECTOR - Last Filed: 06/28/22 18:06> Conjunctivae: conjunctivae normal <Melissa Willett TRANSPORTATION PROGRAM DIRECTOR - Last Filed: 06/28/22 18:06> Sclerae: sclerae normal <Melissa Willett TRANSPORTATION PROGRAM DIRECTOR - Last Filed: 06/28/22 18:06> Pupils: Equal, round and reactive pupils present <Melissa Willett TRANSPORTATION PROGRAM DIRECTOR - Last Filed: 06/28/22 18:06> EOM: EOMs intact bilaterally <Melissa Willett TRANSPORTATION PROGRAM DIRECTOR - Last Filed: 06/28/22 18:06> Neck Neck: Yes normal visual inspection and Yes full ROM <Melissa Willett TRANSPORTATION PROGRAM DIRECTOR - Last Filed: 06/28/22 18:06> Chest Chest palpation & inspection: normal inspection of the chest <Melissa Willett TRANSPORTATION PROGRAM DIRECTOR - Last Filed: 06/28/22 18:06> Resp Effort & Inspection: normal respiratory effort and able to speak in complete sentences <Melissa Willett TRANSPORTATION PROGRAM DIRECTOR - Last Filed: 06/28/22 18:06> Auscultation: clear to auscultation bilaterally <Melissa Willett TRANSPORTATION PROGRAM DIRECTOR - Last Filed: 06/28/22 18:06> Cardio Rate: regular rate <Melissa Willett TRANSPORTATION PROGRAM DIRECTOR - Last Filed: 06/28/22 18:06> Rhythm: regular rhythm <Melissa Willett TRANSPORTATION PROGRAM DIRECTOR - Last Filed: 06/28/22 18:06> GI Inspection: Yes other (peritoneal dialysis tubing present ) <Melissa Willett TRANSPORTATION PROGRAM DIRECTOR - Last Filed: 06/28/22 18:06> Palpation (GI): Soft to palpation and nontender <Melissa Willett TRANSPORTATION PROGRAM DIRECTOR - Last Filed: 06/28/22 18:06> Auscultation: normal bowel sounds <Melissa Willett TRANSPORTATION PROGRAM DIRECTOR - Last Filed: 06/28/22 18:06> Back/Spine/Pelvis Cervical Spine: cervical ROM normal <Melissa Willett TRANSPORTATION PROGRAM DIRECTOR - Last Filed: 06/28/22 18:06> Thoracic/Lumbar Spine: thoraco-lumbar ROM normal <Melissa Willett TRANSPORTATION PROGRAM DIRECTOR - Last Filed: 06/28/22 18:06> Skin General skin exam: no rashes or lesions noted <Melissa Willett TRANSPORTATION PROGRAM DIRECTOR - Last Filed: 06/28/22 18:06> Neuro General: patient oriented x3, gait normal and moves all extremities <Melissa Willett TRANSPORTATION PROGRAM DIRECTOR - Last Filed: 06/28/22 18:06> Cranial nerves: Yes Equal, round and reactive pupils present, Yes Bilaterally intact EOM present, Yes Normal facial strength present, Yes Midline tongue present, Yes Symmetric palate elevation present, Yes Normal hearing present, Yes Ability to bilaterally rotate head present and Yes Ability to bilaterally elevate shoulders present <Melissatami Willett NP - Last Filed: 06/28/22 18:06> Cognition (Neuro): normal cognition <Melissa Willett TRANSPORTATION PROGRAM DIRECTOR - Last Filed: 06/28/22 18:06> Speech: No Abnormal speech present <Melissa Willett TRANSPORTATION PROGRAM DIRECTOR - Last Filed: 06/28/22 18:06> Gait exam (Neuro): Normal gait present <Melissa Willett TRANSPORTATION PROGRAM DIRECTOR - Last Filed: 06/28/22 18:06> Motor exam (neuro): 5/5 motor strength present throughout <Melissa Willett TRANSPORTATION PROGRAM DIRECTOR - Last Filed: 06/28/22 18:06> Sensory Exam: Normal double simultaneous stimulation for sensation <Melissa Willett TRANSPORTATION PROGRAM DIRECTOR - Last Filed: 06/28/22 18:06> Extrem General: Yes normal to inspection, Yes full ROM and Yes capillary refill normal <Melissa Willett TRANSPORTATION PROGRAM DIRECTOR - Last Filed: 06/28/22 18:06> Psych Appearance: grossly normal <Melissa Willett TRANSPORTATION PROGRAM DIRECTOR - Last Filed: 06/28/22 18:06> Mental Status: mental status grossly normal <Melissa Willett TRANSPORTATION PROGRAM DIRECTOR - Last Filed: 06/28/22 18:06> Speech and movement: Normal speech and movement present <Melissa Willett TRANSPORTATION PROGRAM DIRECTOR - Last Filed: 06/28/22 18:06> Affect: normal affect <Melissa Willett TRANSPORTATION PROGRAM DIRECTOR - Last Filed: 06/28/22 18:06> Attitude: cooperative <Melissa Willett TRANSPORTATION PROGRAM DIRECTOR - Last Filed: 06/28/22 18:06> Thought process: Normal thought process present <Melissa Willett TRANSPORTATION PROGRAM DIRECTOR - Last Filed: 06/28/22 18:06> Thought content: Normal thought content present <Melissa Willett TRANSPORTATION PROGRAM DIRECTOR - Last Filed: 06/28/22 18:06> Insight: Good insight present (Psych) <Melissa Willett NP - Last Filed: 06/28/22 18:06> Judgement: Good judgement present (Psych) <Melissa Willett NP - Last Filed: 06/28/22 18:06> Course Course Course Narrative: RME: 72-year-old male with a history of end-stage renal disease dialyzed daily at home, hypertension, diabetes mellitus with presents emergency department for evaluation of right sided headache in the frontal and temporal area with blurred vision in his right eye, headache is intermittent, pressure, 5/10. Patient developed right sided arm and leg numbness times 2-3 days. Vital signs were normal. Head exam revealed no rash on the right side of his head, no temporal tenderness, eyes appear to be normal, pupils equal round reactive light, neck supple, lungs clear to auscultation, heart regular rate rhythm, abdomen soft nontender, extremities unremarkable, neurologic exam was nonfocal. Differential includes was not limited to stroke, mass, temporal arteritis. I ordered a CBC, CMP, CRP, ESR, influenza, COVID, lipase, PT/INR, PTT, EKG, chest x-ray and CT scan of the brain. Patient will be brought from triage to a bed for further evaluation. <Tom Ledezma MD - Last Filed: 06/28/22 14:08> RME: 72-year-old male with a history of end-stage renal disease dialyzed daily at home, hypertension, diabetes mellitus with presents emergency department for evaluation of right sided headache in the frontal and temporal area with blurred vision in his right eye, headache is intermittent, pressure, 5/10. Patient developed right sided arm and leg numbness times 2-3 days. Vital signs were normal. Head exam revealed no rash on the right side of his head, no temporal tenderness, eyes appear to be normal, pupils equal round reactive light, neck supple, lungs clear to auscultation, heart regular rate rhythm, abdomen soft nontender, extremities unremarkable, neurologic exam was nonfocal. Differential includes was not limited to stroke, mass, temporal arteritis. I ordered a CBC, CMP, CRP, ESR, influenza, COVID, lipase, PT/INR, PTT, EKG, chest x-ray and CT scan of the brain. Patient will be brought from triage to a bed for further evaluation. 1630: Spoke with Dr Lancaster regarding pt's lab work. No concerns at this time per MD. 1650: MRI ordered to futher rule out stroke. Migraine cocktail given: bernarda cruz fioricet 1725: Pt to MRI 1800: Sign out given to Dr Henderson <Melissa Willett NP - Last Filed: 06/28/22 18:06> Medications Administered Discontinued Medications Generic Name Dose Route Start Last Admin Trade Name Freq PRN Reason Stop Dose Admin Acetaminophen/Butalbital/Caffeine 1 tab 06/28/22 16:55 06/28/22 19:16 Butalb/Acetamin/Caff 50/325/40 Tablet PO 06/28/22 16:56 1 tab ONCE ONE Administration Aspirin 81 mg 06/28/22 17:56 06/28/22 19:17 Aspirin 81 Mg Tab.Chew PO 06/28/22 17:57 81 mg ONCE ONE Administration Diphenhydramine HCl 50 mg 06/28/22 16:54 06/28/22 19:16 Diphenhydramine Hcl 50 Mg/Ml Vial IVPUSH 06/28/22 16:55 50 mg ONCE ONE Administration Metoclopramide HCl 10 mg 06/28/22 16:54 06/28/22 19:17 Metoclopramide Hcl 10 Mg/2 Ml Vial IVPUSH 06/28/22 16:55 10 mg ONCE ONE Administration <Tom Ledezma MD - Last Filed: 06/28/22 14:08> Medications Administered Discontinued Medications Generic Name Dose Route Start Last Admin Trade Name Freq PRN Reason Stop Dose Admin Acetaminophen/Butalbital/Caffeine 1 tab 06/28/22 16:55 06/28/22 19:16 Butalb/Acetamin/Caff 50/325/40 Tablet PO 06/28/22 16:56 1 tab ONCE ONE Administration Aspirin 81 mg 06/28/22 17:56 06/28/22 19:17 Aspirin 81 Mg Tab.Chew PO 06/28/22 17:57 81 mg ONCE ONE Administration Diphenhydramine HCl 50 mg 06/28/22 16:54 06/28/22 19:16 Diphenhydramine Hcl 50 Mg/Ml Vial IVPUSH 06/28/22 16:55 50 mg ONCE ONE Administration Metoclopramide HCl 10 mg 06/28/22 16:54 06/28/22 19:17 Metoclopramide Hcl 10 Mg/2 Ml Vial IVPUSH 06/28/22 16:55 10 mg ONCE ONE Administration <Melissa Willett NP - Last Filed: 06/28/22 18:06> Medications Administered Discontinued Medications Generic Name Dose Route Start Last Admin Trade Name Terra PRN Reason Stop Dose Admin Acetaminophen/Butalbital/Caffeine 1 tab 06/28/22 16:55 06/28/22 19:16 Butalb/Acetamin/Caff 50/325/40 Tablet PO 06/28/22 16:56 1 tab ONCE ONE Administration Aspirin 81 mg 06/28/22 17:56 06/28/22 19:17 Aspirin 81 Mg Tab.Chew PO 06/28/22 17:57 81 mg ONCE ONE Administration Diphenhydramine HCl 50 mg 06/28/22 16:54 06/28/22 19:16 Diphenhydramine Hcl 50 Mg/Ml Vial IVPUSH 06/28/22 16:55 50 mg ONCE ONE Administration Metoclopramide HCl 10 mg 06/28/22 16:54 06/28/22 19:17 Metoclopramide Hcl 10 Mg/2 Ml Vial IVPUSH 06/28/22 16:55 10 mg ONCE ONE Administration <Jacky Henderson MD - Last Filed: 06/28/22 19:43> Medical Decision Making [facility] Narrative Medical decision making narrative: 72-year-old [place]an-speaking male with a past medical history of ESRD with nightly peritoneal dialysis, anemia, hypertension, and diabetes presents to the emergency department with complaints of worsening right sided numbness without weakness and a headache with right orbital pain and right posterior neck discomfort/tenderness. EKG normal sinus rhythm with no evidence of acute cardiac event. CT head unremarkable with no acute intracranial pathology. MRI ordered to further rule out cerebrovascular accident. Chest x-ray unremarkable with no evidence for acute disease. Lab results discussed with nephrology, with no concerns at this time as patient is a peritoneal dialysis patient and these labs are unremarkable with such treatment. Serology negative for flu A, flu B, and COVID 19. Reglan, Benadryl, Fioricet provided for relief of headache/orbital pain with relief. <Melissa Willett NP - Last Filed: 06/28/22 18:06> 72-year-old [place]an-speaking male with a past medical history of ESRD with nightly peritoneal dialysis, anemia, hypertension, and diabetes presents to the emergency department with complaints of worsening right sided numbness without weakness and a headache with right orbital pain and right posterior neck discomfort/tenderness. EKG normal sinus rhythm with no evidence of acute cardiac event. CT head unremarkable with no acute intracranial pathology. MRI ordered to further rule out cerebrovascular accident. Chest x-ray unremarkable with no evidence for acute disease. Lab results discussed with nephrology, with no concerns at this time as patient is a peritoneal dialysis patient and these labs are unremarkable with such treatment. Serology negative for flu A, flu B, and COVID 19. Reglan, Benadryl, Fioricet provided for relief of headache/orbital pain with relief. 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 <Melissa Willett NP - Last Filed: 06/28/22 18:06> Lab Data Lab results reviewed: Yes I reviewed the patient's lab results. <Melissa Willett NP - Last Filed: 06/28/22 18:06> Result diagrams: : 06/28/22 14:26 06/28/22 14:26 <Tom Ledezma MD - Last Filed: 06/28/22 14:08> Labs: Lab Results 06/28/22 06/28/22 06/28/22 Range/Units 14:26 14:26 14:26 WBC 5.3 (4.8-10.8) X10*3/uL RBC 3.17 L (4.60-5.80) X10*6/uL Hgb 9.5 L D (14.0-18.0) g/dl Hct 26.8 L (42.0-52.0) % MCV 84.5 (80.0-98.0) fL MCH 30.0 (27.0-33.0) pg MCHC 35.4 (31.0-36.0) g/dl RDW 13.2 (11.0-16.0) % Plt Count 179 (160-400) X10*3/uL MPV 9.7 (9.4-12.4) fL Immature Gran % (Auto) 0.7 H (0.0-0.4) % Neut % (Auto) 54.4 (45-73) % Lymph % (Auto) 29.6 (20-40) % Rawlins % (Auto) 10.5 (2-11) % Eos % (Auto) 3.9 (0-4) % Baso % (Auto) 0.9 (0-2) % Lymph # (Auto) 1.6 (1.2-4.9) X10*3/uL Rawlins # (Auto) 0.6 (0.1-1.2) X10*3/uL Eos # (Auto) 0.2 (0.0-0.4) X10*3/uL Baso # (Auto) 0.1 (0.0-0.2) X10*3/uL Abs Immat Gran (auto) 0.04 H (0.00-0.03) X10*3/uL Absolute Neuts (auto) 2.9 (2.0-8.3) x10*3/uL Absolute Nucleated RBC 0.000 (0.0-0.012) X10*3/uL Nucleated RBC % (auto) 0.0 (0.0-0.2) /100WBC ESR 55 H (0-15) MM/HR PT 10.6 (10.0-13.1) SEC INR 0.9 (0.9-1.1) APTT 25.7 L (26.0-36.4) SEC Sodium (135-145) mmol/L Potassium (3.3-5.1) mmol/L Chloride (96-108) mmol/L Carbon Dioxide (22-29) mmol/L Anion Gap (12-20) BUN (9-16) mg/dL Creatinine (0.5-1.4) mg/dL Estim Creat Clear Calc Estimated GFR Random Glucose (60-115) mg/dL Calcium (8.4-10.2) mg/dL Total Bilirubin (0.0-1.0) mg/dL AST (5-37) U/L ALT (0-40) U/L Alkaline Phosphatase (39-117) U/L C-Reactive Protein (< or = 0.50) mg/dL Total Protein (6.5-8.0) g/dL Albumin (3.5-5.0) g/dL Lipase (8-78) U/L COVID-19 (EDDIE) (Negative) COVID-19 Clin Com Influenza Type A (RIMMA) (Negative) Influenza Type B (RIMMA) (Negative) Influenza A & B Note 06/28/22 06/28/22 06/28/22 Range/Units 14:26 14:26 14:26 WBC (4.8-10.8) X10*3/uL RBC (4.60-5.80) X10*6/uL Hgb (14.0-18.0) g/dl Hct (42.0-52.0) % MCV (80.0-98.0) fL MCH (27.0-33.0) pg MCHC (31.0-36.0) g/dl RDW (11.0-16.0) % Plt Count (160-400) X10*3/uL MPV (9.4-12.4) fL Immature Gran % (Auto) (0.0-0.4) % Neut % (Auto) (45-73) % Lymph % (Auto) (20-40) % Rawlins % (Auto) (2-11) % Eos % (Auto) (0-4) % Baso % (Auto) (0-2) % Lymph # (Auto) (1.2-4.9) X10*3/uL Rawlins # (Auto) (0.1-1.2) X10*3/uL Eos # (Auto) (0.0-0.4) X10*3/uL Baso # (Auto) (0.0-0.2) X10*3/uL Abs Immat Gran (auto) (0.00-0.03) X10*3/uL Absolute Neuts (auto) (2.0-8.3) x10*3/uL Absolute Nucleated RBC (0.0-0.012) X10*3/uL Nucleated RBC % (auto) (0.0-0.2) /100WBC ESR (0-15) MM/HR PT (10.0-13.1) SEC INR (0.9-1.1) APTT (26.0-36.4) SEC Sodium 130 L (135-145) mmol/L Potassium 3.0 L D (3.3-5.1) mmol/L Chloride 92 L (96-108) mmol/L Carbon Dioxide 27 (22-29) mmol/L Anion Gap 14 (12-20) BUN 45 H (9-16) mg/dL Creatinine 9.57 H* (0.5-1.4) mg/dL Estim Creat Clear Calc 7.4 Estimated GFR 5 Random Glucose 160 H (60-115) mg/dL Calcium 8.9 D (8.4-10.2) mg/dL Total Bilirubin 0.4 (0.0-1.0) mg/dL AST 9 (5-37) U/L ALT 14 (0-40) U/L Alkaline Phosphatase 68 (39-117) U/L C-Reactive Protein 0.16 (< or = 0.50) mg/dL Total Protein 6.5 (6.5-8.0) g/dL Albumin 3.6 (3.5-5.0) g/dL Lipase 87 H (8-78) U/L COVID-19 (EDDIE) Negative (Negative) COVID-19 Clin Com See Note Influenza Type A (RIMMA) Negative (Negative) Influenza Type B (RIMMA) Negative (Negative) Influenza A & B Note See Note <Tom Ledezma MD - Last Filed: 06/28/22 14:08> Lab Results 06/28/22 06/28/22 06/28/22 Range/Units 14:26 14:26 14:26 WBC 5.3 (4.8-10.8) X10*3/uL RBC 3.17 L (4.60-5.80) X10*6/uL Hgb 9.5 L D (14.0-18.0) g/dl Hct 26.8 L (42.0-52.0) % MCV 84.5 (80.0-98.0) fL MCH 30.0 (27.0-33.0) pg MCHC 35.4 (31.0-36.0) g/dl RDW 13.2 (11.0-16.0) % Plt Count 179 (160-400) X10*3/uL MPV 9.7 (9.4-12.4) fL Immature Gran % (Auto) 0.7 H (0.0-0.4) % Neut % (Auto) 54.4 (45-73) % Lymph % (Auto) 29.6 (20-40) % Rawlins % (Auto) 10.5 (2-11) % Eos % (Auto) 3.9 (0-4) % Baso % (Auto) 0.9 (0-2) % Lymph # (Auto) 1.6 (1.2-4.9) X10*3/uL [place]lins # (Auto) 0.6 (0.1-1.2) X10*3/uL Eos # (Auto) 0.2 (0.0-0.4) X10*3/uL Baso # (Auto) 0.1 (0.0-0.2) X10*3/uL Abs Immat Gran (auto) 0.04 H (0.00-0.03) X10*3/uL Absolute Neuts (auto) 2.9 (2.0-8.3) x10*3/uL Absolute Nucleated RBC 0.000 (0.0-0.012) X10*3/uL Nucleated RBC % (auto) 0.0 (0.0-0.2) /100WBC ESR 55 H (0-15) MM/HR PT 10.6 (10.0-13.1) SEC INR 0.9 (0.9-1.1) APTT 25.7 L (26.0-36.4) SEC Sodium (135-145) mmol/L Potassium (3.3-5.1) mmol/L Chloride (96-108) mmol/L Carbon Dioxide (22-29) mmol/L Anion Gap (12-20) BUN (9-16) mg/dL Creatinine (0.5-1.4) mg/dL Estim Creat Clear Calc Estimated GFR Random Glucose (60-115) mg/dL Calcium (8.4-10.2) mg/dL Total Bilirubin (0.0-1.0) mg/dL AST (5-37) U/L ALT (0-40) U/L Alkaline Phosphatase (39-117) U/L C-Reactive Protein (< or = 0.50) mg/dL Total Protein (6.5-8.0) g/dL Albumin (3.5-5.0) g/dL Lipase (8-78) U/L COVID-19 (EDDIE) (Negative) COVID-19 Clin Com Influenza Type A (RIMMA) (Negative) Influenza Type B (RIMMA) (Negative) Influenza A & B Note 06/28/22 06/28/22 06/28/22 Range/Units 14:26 14:26 14:26 WBC (4.8-10.8) X10*3/uL RBC (4.60-5.80) X10*6/uL Hgb (14.0-18.0) g/dl Hct (42.0-52.0) % MCV (80.0-98.0) fL MCH (27.0-33.0) pg MCHC (31.0-36.0) g/dl RDW (11.0-16.0) % Plt Count (160-400) X10*3/uL MPV (9.4-12.4) fL Immature Gran % (Auto) (0.0-0.4) % Neut % (Auto) (45-73) % Lymph % (Auto) (20-40) % Rawlins % (Auto) (2-11) % Eos % (Auto) (0-4) % Baso % (Auto) (0-2) % Lymph # (Auto) (1.2-4.9) X10*3/uL [place]ins # (Auto) (0.1-1.2) X10*3/uL Eos # (Auto) (0.0-0.4) X10*3/uL Baso # (Auto) (0.0-0.2) X10*3/uL Abs Immat Gran (auto) (0.00-0.03) X10*3/uL Absolute Neuts (auto) (2.0-8.3) x10*3/uL Absolute Nucleated RBC (0.0-0.012) X10*3/uL Nucleated RBC % (auto) (0.0-0.2) /100WBC ESR (0-15) MM/HR PT (10.0-13.1) SEC INR (0.9-1.1) APTT (26.0-36.4) SEC Sodium 130 L (135-145) mmol/L Potassium 3.0 L D (3.3-5.1) mmol/L Chloride 92 L (96-108) mmol/L Carbon Dioxide 27 (22-29) mmol/L Anion Gap 14 (12-20) BUN 45 H (9-16) mg/dL Creatinine 9.57 H* (0.5-1.4) mg/dL Estim Creat Clear Calc 7.4 Estimated GFR 5 Random Glucose 160 H (60-115) mg/dL Calcium 8.9 D (8.4-10.2) mg/dL Total Bilirubin 0.4 (0.0-1.0) mg/dL AST 9 (5-37) U/L ALT 14 (0-40) U/L Alkaline Phosphatase 68 (39-117) U/L C-Reactive Protein 0.16 (< or = 0.50) mg/dL Total Protein 6.5 (6.5-8.0) g/dL Albumin 3.6 (3.5-5.0) g/dL Lipase 87 H (8-78) U/L COVID-19 (EDDIE) Negative (Negative) COVID-19 Clin Com See Note Influenza Type A (RIMMA) Negative (Negative) Influenza Type B (RIMMA) Negative (Negative) Influenza A & B Note See Note <Melissa Willett NP - Last Filed: 06/28/22 18:06> Lab Results 06/28/22 06/28/22 06/28/22 Range/Units 14:26 14:26 14:26 WBC 5.3 (4.8-10.8) X10*3/uL RBC 3.17 L (4.60-5.80) X10*6/uL Hgb 9.5 L D (14.0-18.0) g/dl Hct 26.8 L (42.0-52.0) % MCV 84.5 (80.0-98.0) fL MCH 30.0 (27.0-33.0) pg MCHC 35.4 (31.0-36.0) g/dl RDW 13.2 (11.0-16.0) % Plt Count 179 (160-400) X10*3/uL MPV 9.7 (9.4-12.4) fL Immature Gran % (Auto) 0.7 H (0.0-0.4) % Neut % (Auto) 54.4 (45-73) % Lymph % (Auto) 29.6 (20-40) % Rawlins % (Auto) 10.5 (2-11) % Eos % (Auto) 3.9 (0-4) % Baso % (Auto) 0.9 (0-2) % Lymph # (Auto) 1.6 (1.2-4.9) X10*3/uL [place]lins # (Auto) 0.6 (0.1-1.2) X10*3/uL Eos # (Auto) 0.2 (0.0-0.4) X10*3/uL Baso # (Auto) 0.1 (0.0-0.2) X10*3/uL Abs Immat Gran (auto) 0.04 H (0.00-0.03) X10*3/uL Absolute Neuts (auto) 2.9 (2.0-8.3) x10*3/uL Absolute Nucleated RBC 0.000 (0.0-0.012) X10*3/uL Nucleated RBC % (auto) 0.0 (0.0-0.2) /100WBC ESR 55 H (0-15) MM/HR PT 10.6 (10.0-13.1) SEC INR 0.9 (0.9-1.1) APTT 25.7 L (26.0-36.4) SEC Sodium (135-145) mmol/L Potassium (3.3-5.1) mmol/L Chloride (96-108) mmol/L Carbon Dioxide (22-29) mmol/L Anion Gap (12-20) BUN (9-16) mg/dL Creatinine (0.5-1.4) mg/dL Estim Creat Clear Calc Estimated GFR Random Glucose (60-115) mg/dL Calcium (8.4-10.2) mg/dL Total Bilirubin (0.0-1.0) mg/dL AST (5-37) U/L ALT (0-40) U/L Alkaline Phosphatase (39-117) U/L C-Reactive Protein (< or = 0.50) mg/dL Total Protein (6.5-8.0) g/dL Albumin (3.5-5.0) g/dL Lipase (8-78) U/L COVID-19 (EDDIE) (Negative) COVID-19 Clin Com Influenza Type A (RIMMA) (Negative) Influenza Type B (RIMMA) (Negative) Influenza A & B Note 06/28/22 06/28/22 06/28/22 Range/Units 14:26 14:26 14:26 WBC (4.8-10.8) X10*3/uL RBC (4.60-5.80) X10*6/uL Hgb (14.0-18.0) g/dl Hct (42.0-52.0) % MCV (80.0-98.0) fL MCH (27.0-33.0) pg MCHC (31.0-36.0) g/dl RDW (11.0-16.0) % Plt Count (160-400) X10*3/uL MPV (9.4-12.4) fL Immature Gran % (Auto) (0.0-0.4) % Neut % (Auto) (45-73) % Lymph % (Auto) (20-40) % Rawlins % (Auto) (2-11) % Eos % (Auto) (0-4) % Baso % (Auto) (0-2) % Lymph # (Auto) (1.2-4.9) X10*3/uL [place] # (Auto) (0.1-1.2) X10*3/uL Eos # (Auto) (0.0-0.4) X10*3/uL Baso # (Auto) (0.0-0.2) X10*3/uL Abs Immat Gran (auto) (0.00-0.03) X10*3/uL Absolute Neuts (auto) (2.0-8.3) x10*3/uL Absolute Nucleated RBC (0.0-0.012) X10*3/uL Nucleated RBC % (auto) (0.0-0.2) /100WBC ESR (0-15) MM/HR PT (10.0-13.1) SEC INR (0.9-1.1) APTT (26.0-36.4) SEC Sodium 130 L (135-145) mmol/L Potassium 3.0 L D (3.3-5.1) mmol/L Chloride 92 L (96-108) mmol/L Carbon Dioxide 27 (22-29) mmol/L Anion Gap 14 (12-20) BUN 45 H (9-16) mg/dL Creatinine 9.57 H* (0.5-1.4) mg/dL Estim Creat Clear Calc 7.4 Estimated GFR 5 Random Glucose 160 H (60-115) mg/dL Calcium 8.9 D (8.4-10.2) mg/dL Total Bilirubin 0.4 (0.0-1.0) mg/dL AST 9 (5-37) U/L ALT 14 (0-40) U/L Alkaline Phosphatase 68 (39-117) U/L C-Reactive Protein 0.16 (< or = 0.50) mg/dL Total Protein 6.5 (6.5-8.0) g/dL Albumin 3.6 (3.5-5.0) g/dL Lipase 87 H (8-78) U/L COVID-19 (EDDIE) Negative (Negative) COVID-19 Clin Com See Note Influenza Type A (RIMMA) Negative (Negative) Influenza Type B (RIMMA) Negative (Negative) Influenza A & B Note See Note <Jacky Henderson MD - Last Filed: 06/28/22 19:43> Imaging Data Chest x-ray: My impression: No evidence for acute cardiopulmonary disease <Melissa Willett NP - Last Filed: 06/28/22 18:06> Radiologist's impression: EXAMINATION: XR CHEST CLINICAL INFORMATION: Headache. Weakness and chest pain COMPARISON: Previous chest x-ray most recent February 2022 TECHNIQUE: 2 views of the chest were obtained. FINDINGS: No significant abnormality is noted involving the heart, lungs, mediastinum, bony thorax or soft tissues. Mild degenerative changes of the spine. XR/XR chest 2V IMPRESSION: No evidence for acute disease in the chest. Dictated By: Monica Wagner MD Signed By: <Electronically signed by Monica Wagner MD in [place]> 06/28/22 1532 DD/ 1440 TD/TT:? Office Administration: LOS <Melissa Willett NP - Last Filed: 06/28/22 18:06> CT scan - head: My impression: No acute pathology noted in CT head <Melissa Willett NP - Last Filed: 06/28/22 18:06> Radiologist's impression: EXAMINATION: CT HEAD WITHOUT CONTRAST CLINICAL INFORMATION: Right-sided headache. Weakness. COMPARISON: None. TECHNIQUE: Contiguous axial imaging was performed from the skull base to vertex without intravenous administration of contrast. Coronal and sagittal reformatted images are performed at the CT scanner. [This CT examination was performed using dose optimization techniques as appropriate, variously including the following: *Automated exposure control *Adjustment of mA and/or kV according to patient size (this includes techniques or standardized protocols for targeted exams where dose is matched to indication/reason for exam; i.e. extremities or head) *Use of iterative reconstruction technique] DLP: 692 mGy-cm. FINDINGS: There is no evidence of acute intracranial hemorrhage or territorial infarction. No abnormal mass-effect or midline shift is seen. Honeycutt to white matter differentiation is well preserved. No extra-axial fluid collections are identified. There is generalized global volume loss. There is mild prominence of the ventricles and the sulci . There is mild hypodensity of the periventricular white matter due to chronic small vessel ischemic disease. There are vascular calcifications of the internal carotid arteries bilaterally. There is no osseous abnormality. The mastoid air cells and visualized portions of the paranasal sinuses are well-aerated. Status post right orbital lens extraction CT/CT head/brain wo IV con IMPRESSION: No acute intracranial pathology. ? Dictated By: Aguilar Wolf MD Signed By: <Electronically signed by Aguilar Wolf MD in [place]> 06/28/22 1542 DD/ 1443 TD/TT:? Office Administration: ABIOLA <Melissa Willett NP - Last Filed: 06/28/22 18:06> ECG Data Attestation: I personally reviewed and interpreted this ECG as follows: <Melissa Willett NP - Last Filed: 06/28/22 18:06> Prior ECG tracings: available for review <Melissa Willett NP - Last Filed: 06/28/22 18:06> Interpretation: Test Reason : WEAKNESS,CHEST Blood Pressure : / mmHG Vent. Rate : 078 BPM ? ? Atrial Rate : 078 BPM ?? P-R Int : 156 ms? QRS Dur : 114 ms ? ? QT Int : 412 ms ? ? ? P-R-T Axes : 055 -10 090 degrees ?? QTc Int : 469 ms ? Normal sinus rhythm Nonspecific T wave abnormality Intra-ventricular conduction delay Left axis deviation Abnormal ECG When compared with ECG of 26-MAR-2022 02:50, ST no longer depressed in Anterior leads T wave inversion no longer evident in Inferior leads T wave inversion less evident in Anterolateral leads ? Referred By: Tom Ledezma ? Electronically Signed By:GRANT MARIN MD Dictated By: Bryce Marin MD Signed By: <Electronically signed by Bryce Marin MD in [place]> 06/28/22 1611 DD/ 1408 TD/TT: 06/28/22 1611 Office Administration: <Melissa Willett NP - Last Filed: 06/28/22 18:06> Discharge Plan Discharge Clinical Impression: Numbness, Multiple lacunar infarcts <Tom Ledezma MD - Last Filed: 06/28/22 14:08> Patient Disposition: Home, Self-Care <Tom Ledezma MD - Last Filed: 06/28/22 14:08> Instructions: Transient Ischemic Attack (ED), Paresthesia (ED) <Tom Ledezma MD - Last Filed: 06/28/22 14:08> Additional Instructions: Continue your medications and take baby aspirin every day Follow with neurologist for further evaluation <Tom Ledezma MD - Last Filed: 06/28/22 14:08> Prescriptions: No Action furosemide 40 mg tablet 1 tab PO QAM acetaminophen 325 mg tablet 325 mg PO Q4H PRN (Reason: Pain) Qty: 30 0RF atorvastatin 10 mg tablet 10 mg PO BEDTIME Qty: 30 0RF aspirin 81 mg tablet,delayed release (DR/EC) 81 mg PO QAM Qty: 30 0RF tamsulosin 0.4 mg capsule 0.4 mg PO BEDTIME Qty: 30 0RF ferrous sulfate 325 mg (65 mg iron) tablet 325 mg PO DAILY Qty: 30 0RF albuterol sulfate 90 mcg/actuation HFA aerosol inhaler 2 puff inhalation QID PRN (Reason: Shortness Of Breath Or Wheezing) Qty: 8.5 0RF fluticasone propionate 50 mcg/actuation spray,suspension 2 spray intranasal DAILY PRN (Reason: Allergy Symptoms) Qty: 16 0RF calcitriol 0.25 mcg capsule 0.25 mcg PO Q OTHER DAY (DME) lancets [TRUEplus Lancets] 33 gauge misc See Rx Instructions .ROUTE TID Qty: 100 Rx Instructions: As directed (DME) FreeStyle Lite Strips Strip See Rx Instructions Not Applicable .MEDSUPPLY Qty: 10 Rx Instructions: As directed Levemir FlexTouch U-100 Insuln 100 unit/mL (3 mL) insulin pen 40 unit subcut DAILY carvedilol 6.25 mg tablet 6.25 mg PO (DME) pen needle, diabetic [UltiCare Pen Needle] 31 gauge x 1/4 needle See Rx Instructions .ROUTE DAILY Qty: 50 Rx Instructions: As directed calcium carbonate-vitamin D3 600 mg-10 mcg (400 unit) tablet 2 tab PO QAM (DME) insulin syringe-needle U-100 [TRUEplus Insulin] 0.5 mL 31 gauge x 5/16 syringe See Rx Instructions .ROUTE DAILY Qty: 10 Rx Instructions: As directed <Tom Ledezma MD - Last Filed: 06/28/22 14:08>
--- NOTE | 2022-06-28 14:03 | ECG_ITS ---
Test Reason : WEAKNESS,CHEST Blood Pressure : / mmHG Vent. Rate : 078 BPM Atrial Rate : 078 BPM P-R Int : 156 ms QRS Dur : 114 ms QT Int : 412 ms P-R-T Axes : 055 -10 090 degrees QTc Int : 469 ms Normal sinus rhythm Nonspecific T wave abnormality Intra-ventricular conduction delay Left axis deviation Abnormal ECG When compared with ECG of 26-MAR-2022 02:50, ST no longer depressed in Anterior leads T wave inversion no longer evident in Inferior leads T wave inversion less evident in Anterolateral leads Referred By: Tom Ledezma Electronically Signed By:GRANT MARIN MD
[2022-06-28 14:15] VITALS: BP 135/60; PULSE 75; RESP 14; TEMP 37.1
--- OUTSIDE RECORDS SUMMARY | 2022-06-28 14:23 | XMS_ITS | Continuity of Care Document ---
:1950 Author Organization [facility] Address [address] [place] [address]- Care Team Providers Name Role Phone Not on Staff, PCP Primary Care Physician Unavailable Encounter [facility] Date(s): 04/15/22 - 04/16/22 [facility] [address] [place] [id number]- Discharge Disposition: A-D/C Walkout Attending Physician: Not on Staff, Attending MD Admitting Physician: Not on Staff, Admitting MD Referring Physician: Not on Staff, Referring MD Allergies, Adverse Reactions, Alerts No Known Allergies Vital Signs Most recent to oldest 1 2 3 [Reference Range]: Weight 84.5 kg (04/15/22 11:14 PM) Oxygen Saturation [94-100 97 % 100 % 94 % %] (04/16/22 5:54 AM) (04/16/22 3:43 AM) (04/16/22 1:2 9 AM) Pulse Rate [55-90 bpm] 85 bpm 73 bpm 74 bpm (04/16/22 5:54 AM) (04/16/22 3:43 AM) (04/16/22 1:2 9 AM) Blood Pressure 124/70 mm Hg 124/66 mm Hg 131/63 mm Hg [90-138/55-84 mm Hg] (04/16/22 5:54 AM) (04/16/22 3:43 AM) ( 2 1:29 AM) Respiratory Rate [16-30 20 br/min br/min] (04/15/22 11:14 PM) Temperature [96.8-100.4 97.4 DegF 97.5 DegF 97.7 Deg F DegF] (04/16/22 5:54 AM) (04/16/22 3:43 AM) (04/16/22 1:2 9 AM) Mode of Delivery (Oxygen) Room air Room air Room a ir (04/16/22 5:54 AM) (04/16/22 3:43 AM) (04/16/22 1:2 9 AM) Blood pressure sites Arm, right Arm, right Arm, right (04/16/22 5:54 AM) (04/16/22 3:43 AM) (04/16/22 1:2 9 AM) Temperature Route Oral Oral Oral (04/16/22 5:54 AM) (04/16/22 3:43 AM) (04/16/22 1:2 9 AM) Weight Obtained Via Patient/family stated (04/15/22 11:14 PM) Care Team PersonnelName: Not on Staff, PCP
--- OUTSIDE RECORDS SUMMARY | 2022-06-28 14:23 | XMS_ITS | Continuity of Care Document ---
:1950 Author Organization [facility] Address [address] [place] [phone]- Care Team Providers Name Role Phone Not on Staff, PCP Primary Care Physician Unavailable Encounter [facility] Date(s): 02/02/22 - 03/04/22 [facility] [address] [place] [id number] Attending Physician: Sandor Melton Admitting Physician: Sandor Melton Referring Physician: Sandor Melton
--- OUTSIDE RECORDS SUMMARY | 2022-06-28 14:23 | XMS_ITS | Continuity of Care Document ---
:1950 Author Organization [facility] Address [address] [place] [phone]- Care Team Providers Name Role Phone Not on Staff, PCP Primary Care Physician Unavailable Encounter [facility] Date(s): 04/26/22 - 06/03/[address] [id number]- Attending Physician: Will Andrade MD Admitting Physician: Will Andrade MD Allergies, Adverse Reactions, Alerts No Known Allergies Patient Care team information PersonnelName: Not on Staff, PCP
--- OUTSIDE RECORDS SUMMARY | 2022-06-28 14:23 | XMS_ITS | Continuity of Care Document ---
:1950 Author Organization [facility] Endocrinology and D [facility] Address [address] [place] [phone]- Care Team Providers Name Role Phone Not on Staff, PCP Primary Care Physician Unavailable Encounter [facility] Date(s): 01/25/22 - 03/04/22 [facility] Diabetes [address] [place] [id number] Attending Physician: Meryl Gutierrez MD Admitting Physician: Meryl Gutierrez MD Referring Physician: Not on Staff, Referring
--- OUTSIDE RECORDS SUMMARY | 2022-06-28 14:23 | XMS_ITS | Continuity of Care Document ---
:1950 Author Organization [facility] Endocrinology and D [facility] Address [address] [place] [phone]- Care Team Providers Name Role Phone Not on Staff, PCP Primary Care Physician Unavailable Encounter [facility] Date(s): 10/27/21 - 02/24/22 [facility]ocr[facility] Diabetes [address] [place] [id number] Attending Physician: Meryl Gutierrez MD Referring Physician: Tristan BRISENO, Alisson Peña
--- OUTSIDE RECORDS SUMMARY | 2022-06-28 14:23 | XMS_ITS | Continuity of Care Document ---
:1950 Author Organization [facility] Address [address] [place] [address]- Care Team Providers Name Role Phone Not on Staff, PCP Primary Care Physician Unavailable Encounter [facility] Date(s): 04/13/22 - 05/19/22 [facility] [address], [place] [address] Attending Physician: Will Andrade MD Admitting Physician: Will Andrade MD Allergies, Adverse Reactions, Alerts No Known Allergies Patient Care team information PersonnelName: Not on Staff, PCP
--- OUTSIDE RECORDS SUMMARY | 2022-06-28 14:23 | XMS_ITS | Continuity of Care Document ---
:1950 Author Organization [facility] Address [address] [place] [phone]- Care Team Providers Name Role Phone Not on Staff, PCP Primary Care Physician Unavailable Encounter [facility] Date(s): 01/25/22 - 02/24/22 [facility]ology [facility] Diabetes [address] [place] [id number] Attending Physician: Sandor Melton Admitting Physician: Sandor Melton Referring Physician: Sandor Melton
[2022-06-28 14:32] LABS: MANUAL DIFF FLAG NO
[2022-06-28 14:34] LABS: Basophils Absolute Auto 0.1 X10*3/uL (0.0-0.2); Basophils Percent Auto 0.9 % (0-2); Eosinophils Absolute Auto 0.2 X10*3/uL (0.0-0.4); Eosinophils Percent Auto 3.9 % (0-4); Hematocrit 26.8 % (42.0-52.0); Hemoglobin 9.5 g/dl (14.0-18.0); Imm Gran Abs Auto 0.04 X10*3/uL (0.00-0.03); Imm Gran Pct Auto 0.7 % (0.0-0.4); Lymphocytes Absolute Auto 1.6 X10*3/uL (1.2-4.9); Lymphocytes Percent Auto 29.6 % (20-40); Mean Corpuscular HGB Conc 35.4 g/dl (31.0-36.0); Mean Corpuscular Volume 84.5 fL (80.0-98.0); Mean Platelet Volume 9.7 fL (9.4-12.4); Monocytes Absolute Auto 0.6 X10*3/uL (0.1-1.2); Monocytes Percent Auto 10.5 % (2-11); Neutrophils Absolute Auto 2.9 x10*3/uL (2.0-8.3); Neutrophils Percent Auto 54.4 % (45-73); Platelet Count 179 X10*3/uL (160-400); Red Blood Count 3.17 X10*6/uL (4.60-5.80); Red Cell Distribution Width 13.2 % (11.0-16.0); White Blood Count 5.3 X10*3/uL (4.8-10.8)
[2022-06-28 14:39] LABS: INTERNATIONAL NORM RATIO 0.9 (0.9-1.1); Prothrombin Time 10.6 SEC (10.0-13.1)
[2022-06-28 14:42] LABS: Partial Thromboplastin Time 25.7 SEC (26.0-36.4)
[2022-06-28 14:47] LABS: IDNOW Serial# BCCEAD1C; Influenza A Negative (Negative); Influenza B2 Negative (Negative)
[2022-06-28 14:52] LABS: Alanine Aminotransferase 14 U/L (0-40); Albumin Level 3.6 g/dL (3.5-5.0); Alkaline Phosphatase 68 U/L (39-117); Anion Gap 14 (12-20); Aspartate Amino Transferase 9 U/L (5-37); Bilirubin Total 0.4 mg/dL (0.0-1.0); Blood Urea Nitrogen 45 mg/dL (9-16); C Reactive Protein 0.16 mg/dL (< or = 0.50); Calcium 8.9 mg/dL (8.4-10.2); Carbon Dioxide 27 mmol/L (22-29); Chloride 92 mmol/L (96-108); Creatinine Clr Calc Pharmacy 7.4; Estimated Glomerular Filt Rate 5; Glucose Random 160 mg/dL (60-115); Lipase 87 U/L (8-78); Sodium 130 mmol/L (135-145); Total Protein 6.5 g/dL (6.5-8.0)
[2022-06-28 14:55] LABS: COVID-19 Test Negative (Negative); IDNOW Serial# 55D5AD1C
[2022-06-28 15:18] LABS: Erythrocyte Sedimentation Rate 55 MM/HR (0-15)
[2022-06-28 15:41] VITALS: BP 137/59; PULSE 77; RESP 16; TEMP 36.8; O2SAT 98
--- NOTE | 2022-06-28 16:03 | PC.NURSE ---
NO CALL BACK RECEIVED FROM [facility]. THIS US CALLS CONSULT TO OFFICE AGAIN AT THIS TIME. AWAITING CALL BACK
[2022-06-28] MEDS: Butalb/Acetamin/Caff 50/325/40 TABLET 1 TAB PO (19:16)
[2022-06-28] MEDS: diphenhydrAMINE HCL 50 MG/ML VIAL IVPUSH (19:16)
[2022-06-28] MEDS: Metoclopramide HCl 10 MG/2 ML VIAL IVPUSH (19:17)
[2022-06-28] MEDS: Aspirin 81 MG TAB.CHEW PO (19:17)
[2022-06-28 19:53] VITALS: BP 127/65; PULSE 91; RESP 16; TEMP 36.6; O2SAT 97
== END 2022-06-28 19:57 | disposition home or self-care (01) ==
PROVIDERS: Emergency Medicine Emergency Medical Services; Emergency Provider Student in an Organized Health Care Education/Training Program; PCP Nurse Practitioner Primary Care
DX: I63.81 Other cerebral infarction due to occlusion or stenosis of small artery (principal); R20.0 Anesthesia of skin; E11.22 Type 2 diabetes mellitus with diabetic chronic kidney disease; I12.0 Hypertensive chronic kidney disease with stage 5 chronic kidney disease or end stage renal disease; N18.6 End stage renal disease; Z99.2 Dependence on renal dialysis; Z79.4 Long term (current) use of insulin; Z79.82 Long term (current) use of aspirin; Z79.02 Long term (current) use of antithrombotics/antiplatelets; Z79.899 Other long term (current) drug therapy; Z20.822 Contact with and (suspected) exposure to COVID-19
CPT/HCPCS: 70450; 70551; 71046; 80053; 83690; 85025; 85610; 85652; 85730; 86140; 87502; 87635; 93005; 96374; 96375; 99284; 99285; J1200; J2765

== ENCOUNTER 2022-09-27 12:15 | Emergency (ER) | payer OTHER, SELFPAY ==
[2022-09-27 13:09] VITALS: BP 125/64; PULSE 76; RESP 20; TEMP 36.6; O2SAT 99; BMI 32.3
[2022-09-27 13:41] LABS: MANUAL DIFF FLAG NO
[2022-09-27 13:49] LABS: Basophils Percent Auto 0.5 % (0-2); Eosinophils Absolute Auto 0.2 X10*3/uL (0.0-0.4); Eosinophils Percent Auto 3.4 % (0-4); Hematocrit 28.8 % (42.0-52.0); Hemoglobin 9.7 g/dl (14.0-18.0); Imm Gran Abs Auto 0.04 X10*3/uL (0.00-0.03); Imm Gran Pct Auto 0.6 % (0.0-0.4); Lymphocytes Absolute Auto 1.2 X10*3/uL (1.2-4.9); Mean Corpuscular HGB Conc 33.7 g/dl (31.0-36.0); Mean Corpuscular Hemoglobin 30.7 pg (27.0-33.0); Mean Corpuscular Volume 91.1 fL (80.0-98.0); Mean Platelet Volume 9.8 fL (9.4-12.4); Monocytes Absolute Auto 0.6 X10*3/uL (0.1-1.2); Monocytes Percent Auto 9.2 % (2-11); Neutrophils Absolute Auto 4.4 x10*3/uL (2.0-8.3); Neutrophils Percent Auto 67.3 % (45-73); Platelet Count 173 X10*3/uL (160-400); Red Blood Count 3.16 X10*6/uL (4.60-5.80); White Blood Count 6.5 X10*3/uL (4.8-10.8)
[2022-09-27 13:58] LABS: COVID-19 Test Negative (Negative); IDNOW Serial# 55D5AD1C
[2022-09-27 13:59] LABS: IDNOW Serial# 9DB6401D; Influenza A Negative (Negative); Influenza B2 Negative (Negative)
[2022-09-27 14:05] LABS: Anion Gap 18 (12-20); Blood Urea Nitrogen 51 mg/dL (9-16); Calcium 7.8 mg/dL (8.4-10.2); Carbon Dioxide 26 mmol/L (22-29); Chloride 96 mmol/L (96-108); Creatinine Clr Calc Pharmacy 7.1; Estimated Glomerular Filt Rate 5; Glucose Random 158 mg/dL (60-115); Potassium 3.6 mmol/L (3.3-5.1); Sodium 136 mmol/L (135-145)
[2022-09-27 14:28] VITALS: BP 126/59; PULSE 69; RESP 16; TEMP 36.4; O2SAT 97
[2022-09-28 01:32] VITALS: BP 147/72; PULSE 84; RESP 18; TEMP 36.5; O2SAT 95
--- NOTE | 2022-09-28 01:43 | ED_ITS ---
HPI - General Adult General Chief complaint: General Medical Stated complaint: Chills Time Seen by Provider: 09/28/22 01:43 Source: patient Mode of arrival: ambulatory Limitations: no limitations History of Present Illness HPI narrative: Patient with history of end-stage renal disease on peritoneal dialysis been jones ving chills for about 2 days noticed slight redness at the site of peritoneal catheter. No fever , no significant abdominal pain. Otherwise patient feels normal no cough or upper respiratory infection no vomiting or diarrhea Related Data Home Medications Medication Instructions Recorded Confirmed furosemide 40 mg tablet 1 tab PO QAM 02/17/21 02/17/21 calcitriol 0.25 mcg capsule 0.25 mcg PO Q OTHER DAY 05/05/21 blood sugar diagnostic (FreeStyle #10 ea 03/16/22 Lite Strips) calcium carbonate 600 mg-vitamin 2 tab PO QAM 03/16/22 D3 10 mcg (400 unit) tablet carvedilol 6.25 mg tablet 6.25 mg PO 03/16/22 insulin detemir U-100 100 unit/mL 40 unit subcut DAILY 03/16/22 (3 mL) subcutaneous pen (Levemir FlexTouch U-100 Insulin) insulin syringe-needle U-100 0.5 #10 ea 03/16/22 mL 31 gauge x 5/16 (TRUEplus Insulin) lancets 33 gauge (TRUEplus Lancets) #100 ea 03/16/22 pen needle, diabetic 31 gauge x #50 ea 03/16/22 1/4 (UltiCare Pen Needle) Previous Rx's Medication Instructions Recorded acetaminophen 325 mg tablet 325 mg PO Q4H PRN Pain #30 tabs 02/20/21 albuterol sulfate 90 mcg/actuation 2 puff inhalation QID PRN 02/20/21 aerosol inhaler Shortness Of Breath Or Wheezing #8.5 grams aspirin 81 mg tablet,delayed 81 mg PO QAM #30 tabs 02/20/21 release atorvastatin 10 mg tablet 10 mg PO BEDTIME #30 tabs 02/20/21 ferrous sulfate 325 mg (65 mg 325 mg PO DAILY #30 tabs 02/20/21 iron) tablet fluticasone propionate 50 2 spray intranasal DAILY PRN 02/20/21 mcg/actuation nasal Allergy Symptoms #16 grams spray,suspension tamsulosin 0.4 mg capsule 0.4 mg PO BEDTIME #30 caps 02/20/21 Allergies Allergy/AdvReac Type Severity Reaction Status Date / Time No Known Allergies Allergy Verified 03/25/22 21:55 [No Known Allergies*] Review of Systems Review of Systems: Yes all other systems are reviewed and are negative [facility] Past Medical History Medical History Asthma Diabetes Hypertension Kidney disease Surgical History Hx of colonoscopy Family History Family History Sister Diabetes Social History Social History Household Members: Friend(s) Housing: Apartment Do you presently have visiting nurse or other home services: No Alcohol intake: never Patient Tobacco Use Status: Never used Tobacco Smoked in Last 30 Days: No e-Cigarette/Vaping Use: Never Used Use of substances other than those prescribed or required for medical reasons: No Advance Directives: No service: No Current occupational status: unemployed 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 Oriented X3. No acute distress. Eyes: PERRLA, No Nystagmus ENT: Pharynx normal. Oral Mucosa moist Neck: Normal inspection. Neck supple. CVS: Normal heart rate and rhythm. Pulses normal. Respiratory: No respiratory distress. Equal air entry bilateral, no wheezing/rales/rhonchi Abdomen: Soft and nontender. Free fluid present better on catheter in place normal color of the skin around the stoma Bowel sounds are present, no mass palpable, no CVA tenderness Skin: Skin warm and dry. Normal skin color. Normal skin turgor. Extremities: No lower extremity edema. No calf tenderness Neuro: Oriented X 3. No motor deficit. No sensory deficit.No cerebellar signs , cranial nerves II-XII intact Medications Administered Discontinued Medications Generic Name Dose Route Start Last Admin Trade Name Freq PRN Reason Stop Dose Admin Cefepime HCl 2 gm/ Sodium 50 mls @ 100 mls/hr 09/28/22 01:44 09/28/22 02:29 Chloride IV 09/28/22 02:13 Infused ONCE ONE Infusion Vancomycin HCl 2,000 mg in 520 mls @ 260 mls/hr 09/28/22 02:00 09/28/22 02:26 Vancomycin/Ns IV 09/28/22 03:59 260 mls/hr ONCE ONE Administration Medical Decision Making Medical Decision Making [facility] Narrative: Patient on peritoneal dialysis with chills etiology not very clear normal WBC count normal lactic acid bed renal fluid negative for SBP patient afebrile was given 1 dose of vancomycin and Zosyn prophylactically be patient advised report to the ER if chills continues/high fever Differential Diagnosis SBP/COVID/flu/RSV/bacteremia Lab Data [facility] Lab Attestation statement: I reviewed the patient's lab results. 09/27/22 13:36 09/27/22 13:36 Labs: Lab Results 09/27/22 09/27/22 09/27/22 Range/Units 13:36 13:36 13:36 WBC 6.5 (4.8-10.8) X10*3/uL RBC 3.16 L (4.60-5.80) X10*6/uL Hgb 9.7 L (14.0-18.0) g/dl Hct 28.8 L (42.0-52.0) % MCV 91.1 (80.0-98.0) fL MCH 30.7 (27.0-33.0) pg MCHC 33.7 (31.0-36.0) g/dl RDW 14.0 (11.0-16.0) % Plt Count 173 (160-400) X10*3/uL MPV 9.8 (9.4-12.4) fL Immature Gran % (Auto) 0.6 H (0.0-0.4) % Neut % (Auto) 67.3 (45-73) % Lymph % (Auto) 19.0 L (20-40) % [place] % (Auto) 9.2 (2-11) % Eos % (Auto) 3.4 (0-4) % Baso % (Auto) 0.5 (0-2) % Lymph # (Auto) 1.2 (1.2-4.9) X10*3/uL [place] # (Auto) 0.6 (0.1-1.2) X10*3/uL Eos # (Auto) 0.2 (0.0-0.4) X10*3/uL Baso # (Auto) 0.0 (0.0-0.2) X10*3/uL Abs Immat Gran (auto) 0.04 H (0.00-0.03) X10*3/uL Absolute Neuts (auto) 4.4 (2.0-8.3) x10*3/uL Absolute Nucleated RBC 0.000 (0.0-0.012) X10*3/uL Nucleated RBC % (auto) 0.0 (0.0-0.2) /100WBC Sodium 136 (135-145) mmol/L Potassium 3.6 (3.3-5.1) mmol/L Chloride 96 (96-108) mmol/L Carbon Dioxide 26 (22-29) mmol/L Anion Gap 18 (12-20) BUN 51 H (9-16) mg/dL Creatinine 9.95 H* (0.5-1.4) mg/dL Estim Creat Clear Calc 7.1 Estimated GFR 5 Random Glucose 158 H (60-115) mg/dL Lactic Acid (0.5-2.0) mmol/L Calcium 7.8 L D (8.4-10.2) mg/dL Peritoneal WBC X10*3/uL Peritoneal RBC X10*6/uL Periton Neutrophils % Periton Lymphocytes % Peritoneal Monocytes % COVID-19 (EDDIE) (Negative) COVID-19 Clin Com Influenza Type A (RIMMA) Negative (Negative) Influenza Type B (RIMMA) Negative (Negative) Influenza A & B Note See Note 09/27/22 09/28/22 09/28/22 Range/Units 13:36 02:12 02:12 WBC (4.8-10.8) X10*3/uL RBC (4.60-5.80) X10*6/uL Hgb (14.0-18.0) g/dl Hct (42.0-52.0) % MCV (80.0-98.0) fL MCH (27.0-33.0) pg MCHC (31.0-36.0) g/dl RDW (11.0-16.0) % Plt Count (160-400) X10*3/uL MPV (9.4-12.4) fL Immature Gran % (Auto) (0.0-0.4) % Neut % (Auto) (45-73) % Lymph % (Auto) (20-40) % [place] % (Auto) (2-11) % Eos % (Auto) (0-4) % Baso % (Auto) (0-2) % Lymph # (Auto) (1.2-4.9) X10*3/uL [place] # (Auto) (0.1-1.2) X10*3/uL Eos # (Auto) (0.0-0.4) X10*3/uL Baso # (Auto) (0.0-0.2) X10*3/uL Abs Immat Gran (auto) (0.00-0.03) X10*3/uL Absolute Neuts (auto) (2.0-8.3) x10*3/uL Absolute Nucleated RBC (0.0-0.012) X10*3/uL Nucleated RBC % (auto) (0.0-0.2) /100WBC Sodium (135-145) mmol/L Potassium (3.3-5.1) mmol/L Chloride (96-108) mmol/L Carbon Dioxide (22-29) mmol/L Anion Gap (12-20) BUN (9-16) mg/dL Creatinine (0.5-1.4) mg/dL Estim Creat Clear Calc Estimated GFR Random Glucose (60-115) mg/dL Lactic Acid 1.0 (0.5-2.0) mmol/L Calcium (8.4-10.2) mg/dL Peritoneal WBC 0.360 X10*3/uL Peritoneal RBC < 0.002 X10*6/uL Periton Neutrophils 5 % Periton Lymphocytes 8 % Peritoneal Monocytes 87 % COVID-19 (EDDIE) Negative (Negative) COVID-19 Clin Com See Note Influenza Type A (RIMMA) (Negative) Influenza Type B (RIMMA) (Negative) Influenza A & B Note Discharge Plan Discharge Clinical Impression: Chills, End stage renal disease Patient Disposition: Home, Self-Care Instructions: Chronic Kidney Disease (ED) Additional Instructions: Source of infection if any is not clear likely viral Your received antibiotics prophylactically Cultures are pending Report to the ER if high fever, will call you with the culture results if positive Prescriptions: No Action furosemide 40 mg tablet 1 tab PO QAM acetaminophen 325 mg tablet 325 mg PO Q4H PRN (Reason: Pain) Qty: 30 0RF atorvastatin 10 mg tablet 10 mg PO BEDTIME Qty: 30 0RF aspirin 81 mg tablet,delayed release (DR/EC) 81 mg PO QAM Qty: 30 0RF tamsulosin 0.4 mg capsule 0.4 mg PO BEDTIME Qty: 30 0RF ferrous sulfate 325 mg (65 mg iron) tablet 325 mg PO DAILY Qty: 30 0RF albuterol sulfate 90 mcg/actuation HFA aerosol inhaler 2 puff inhalation QID PRN (Reason: Shortness Of Breath Or Wheezing) Qty: 8.5 0RF fluticasone propionate 50 mcg/actuation spray,suspension 2 spray intranasal DAILY PRN (Reason: Allergy Symptoms) Qty: 16 0RF calcitriol 0.25 mcg capsule 0.25 mcg PO Q OTHER DAY (DME) lancets [TRUEplus Lancets] 33 gauge misc See Rx Instructions .ROUTE TID Qty: 100 Rx Instructions: As directed (DME) FreeStyle Lite Strips Strip See Rx Instructions Not Applicable .MEDSUPPLY Qty: 10 Rx Instructions: As directed Levemir FlexTouch U-100 Insuln 100 unit/mL (3 mL) insulin pen 40 unit subcut DAILY carvedilol 6.25 mg tablet 6.25 mg PO (DME) pen needle, diabetic [UltiCare Pen Needle] 31 gauge x 1/4 needle See Rx Instructions .ROUTE DAILY Qty: 50 Rx Instructions: As directed calcium carbonate-vitamin D3 600 mg-10 mcg (400 unit) tablet 2 tab PO QAM (DME) insulin syringe-needle U-100 [TRUEplus Insulin] 0.5 mL 31 gauge x 5/16 syringe See Rx Instructions .ROUTE DAILY Qty: 10 Rx Instructions: As directed
--- NOTE | 2022-09-28 01:44 | PC.NURSE ---
pt c/o of pain to fistula site on abd and is on hemodialysis, pt c/o having chills as well pt is a&o no apparent distress ambulates safely/independently
[2022-09-28 01:49] VITALS: BP 146/70; PULSE 87; RESP 17; TEMP 36.4; O2SAT 95
[2022-09-28] MEDS: cefEPime HCl 2 GM in 0.9 % Sodium Chloride 50 ML IV (01:59)
[2022-09-28 02:18] LABS: MN% 95.9 %; PMN% 4.1 %
[2022-09-28 02:20] LABS: RBC Peritoneal Fluid < 0.002 X10*6/uL
[2022-09-28 02:21] LABS: BF Shift QC OK YES
[2022-09-28 02:56] LABS: Lymphocyte Peritoneal Fl 8 %
[2022-09-28 02:57] LABS: Monocytes Peritoneal Fl 87 %; Neutrophils Peritoneal Fluid 5 %
--- NOTE | 2022-09-28 03:18 | PC.NURSE ---
pt c/o abd pain alert and oriented IV line est L forearem 20g pt in CT
--- NOTE | 2022-09-28 03:20 | PC.NURSE ---
pt resting quietly, no apparent distress
[2022-09-28 04:25] VITALS: BP 123/58; PULSE 82; RESP 18; TEMP 37.1; O2SAT 100
--- NOTE | 2022-09-28 05:30 | PC.NURSE ---
discharge instructions given/explained, ambulates safely/independently, no apparent distress, IV cath tip intact upon removal
== END 2022-09-28 05:35 | disposition home or self-care (01) ==
PROVIDERS: Emergency Provider Internal Medicine; PCP Nurse Practitioner Primary Care
DX: R68.83 Chills (without fever) (principal); I12.0 Hypertensive chronic kidney disease with stage 5 chronic kidney disease or end stage renal disease; E11.22 Type 2 diabetes mellitus with diabetic chronic kidney disease; Z20.822 Contact with and (suspected) exposure to COVID-19; Z20.828 Contact with and (suspected) exposure to other viral communicable diseases; Z79.899 Other long term (current) drug therapy; Z79.4 Long term (current) use of insulin
CPT/HCPCS: 36415; 80048; 83605; 85025; 87040; 87070; 87073; 87205; 87502; 87635; 89051; 96365; 96367; 99284; J0692; J3370

== ENCOUNTER → 2023-03-23 12:11 | Outpatient (REF) | payer OTHER, SELFPAY ==
--- NOTE | 2023-03-23 12:29 | CA_ITS ---
Transthoracic Echocardiogram Patient (Last, First, Middle): Babatunde Montanez, Gender: Male Date of : 1950 Age: 72 Procedure Date: 03/23/2023 Procedure Type: Transthoracic Echocardiogram Location: OP Height: 167.64 cm Weight: 88.91 kg BSA: 1.98 m2 Heart Rate: 73 bpm BP: 132 / 70 mmHg Measurement Psychologist: SB Referring MD: Alisson Hudson NP Symptoms: END STAGE RENAL FAILURE N18.6 Z99.2 I11.9 HYPERTENSIVE HD, R06.01 ORTHOPNEA Study Quality: Adequate ECG Rhythm: Sinus Conclusions: - The left ventricular systolic function is low normal. The visually estimated ejection fraction is between 50-55%. - The basal inferior segment is hypokinetic. - No obvious valvular pathology seen on this study. Findings Left Ventricle Mildly increased left ventricular cavity size. The left ventricular systolic function is low normal. The visually estimated ejection fraction is between 50-55%. Evidence suggests grade I (mild) diastolic dysfunction. There is mild septal asymmetric hypertrophy. LV peak GLS -16.7%, slightly reduced. Wall Motion Rest Echo Findings The basal inferior segment is hypokinetic. Right Ventricle Normal right ventricular cavity size and systolic function. Atria Both atria are normal in size. Aortic Valve There is a normal trileaflet aortic valve. There is mild calcification of the aortic valve. There is no aortic valve stenosis. There is no aortic valve regurgitation. Mitral Valve The mitral valve appears normal. There is trace mitral valve regurgitation. There is no mitral valve stenosis. Pulmonic Valve The pulmonic valve is likely normal. Tricuspid Valve There is no tricuspid valve regurgitation. Tricuspid regurgitation envelope is inadequate for calculation of right ventricular systolic pressure. Great Vessels The asc aorta is normal in size. Venous The inferior vena cava is normal in size and collapses greater than 50% with inspiration. Pericardium/Pleural There is no evidence of pericardial effusion. Prior Study Comparison Changes noted compared to prior study dated: 02/18/2021. LVEF slightly lower than before. Recommendations, Care & Conclusions No obvious valvular pathology seen on this study. Measurements 2D Linear Measurements IVSd: 1.10 0.6-0.9/0.6-1.0 cm LVIDd: 5.91 3.9-5.3/4.2-5.9 cm LVIDd Index: 2.98 2.4-3.2/2.2-3.1 cm/m2 LVIDs: 4.00 2.0-3.6 cm LVPWd: 1.02 0.7-1.1 cm LA Diam: 4.80 2.7-3.8/3.0-4.0 cm LAIDs Index: 2.42 1.5-2.3 cm/m2 LV Mass: 323.81 67-162/88-224 g LV Mass Index: 163.54 43-95/49-115 g/m2 LVOT Diam: 2.50 3.0+(-)1.3 cm 2D Systolic Function EF 4C: 51.00 >55% EF 2C: 51.90 >55% Mitral Valve MV Pk E: 1.00 MV PK A: 1.04 MV Decel Time: 163.00 E/A: 1.00 E'Lateral: 10.30 E'Medial: 4.79 E/E' Med: 20.90 E/E' Lat: 9.70 PHT: 48.00 MVA PHT: 4.58 Decel [place]: 6.16 Aortic Valve AoV Pk Marino: 1.54 AoV Pk Grad: 9.00 ADEOLA: 3.12 LVOT LVOT Pk Marino: 1.01 LVOT Mn Marino: 0.71 LVOT VTI: 0.21 LVOT Pk Grad: 4.00 LVOT Mn Grad: 2.00 LVOT Diam: 2.50 LVOT Area: 4.91 Diastolic Function MV Pk E: 1.00 MV Pk A: 1.04 E/A: 1.00 E'Medial: 4.79 E/E' Med: 20.90 E' Laterial: 10.30 E/E' Lat: 9.70 Right Ventricle TAPSE (mm): 25.30 TVS' Marino: 19.90 Tricuspid Valve RA Press: 3.00 Great Vessels Aorta Sinus of Valsalva: 3.50 2.0-3.5 cm Ao Asc: 3.50 2.1-3.4 cm Pulmonary Veins Pulm Vein S/D 1.00 Pulmonary Valve PV Pk Marino: 1.15 Peak PV Grad: 5.00 Updated in Other Vendor System with Status of Final Toan Grijalva MD electronically signed on 03/24/2023 10:39:14 AM with status of Final
== END ==
LOC: HO.CARD 12:11
PROVIDERS: PCP Nurse Practitioner Primary Care; Visit Provider Nurse Practitioner Primary Care
DX: R06.01 Orthopnea (principal); I11.9 Hypertensive heart disease without heart failure; N18.6 End stage renal disease; Z99.2 Dependence on renal dialysis
CPT/HCPCS: 93306; 93356

== ENCOUNTER → 2023-03-23 12:29 | Outpatient (BNV) | payer OTHER, SELFPAY | PROVIDERS: PCP Nurse Practitioner Primary Care; Visit Provider Internal Medicine | DX: N18.6 End stage renal disease (principal); Z99.2 Dependence on renal dialysis; I11.9 Hypertensive heart disease without heart failure | CPT/HCPCS: 93306 ==

== ENCOUNTER 2023-06-20 09:12 | Outpatient (REF) | payer OTHER, SELFPAY ==
--- NOTE | ~2023-06-20 | XR_ITS ---
EXAMINATION: XR CHEST CLINICAL INFORMATION: Chills x 4 days. COMPARISON: None available. TECHNIQUE: 2 views of the chest were obtained. FINDINGS: No significant abnormality is noted involving the heart, lungs, mediastinum, bony thorax or soft tissues. XR/XR chest 2V IMPRESSION: Unremarkable chest examination.
== END 2023-06-20 09:13 | disposition home or self-care (01) ==
LOC: HO.HHCX 09:12
PROVIDERS: Visit Provider Emergency Medicine
DX: R68.83 Chills (without fever) (principal)
CPT/HCPCS: 71046

== ENCOUNTER 2023-06-20 09:24 | Outpatient (REF) | payer OTHER, SELFPAY ==
[2023-06-20 12:05] LABS: MANUAL DIFF FLAG NO
[2023-06-20 12:08] LABS: Basophils Absolute Auto 0.1 X10*3/uL (0.0-0.2); Basophils Percent Auto 0.6 % (0-2); Eosinophils Absolute Auto 0.3 X10*3/uL (0.0-0.4); Eosinophils Percent Auto 3.8 % (0-4); Hematocrit 33.7 % (42.0-52.0); Hemoglobin 11.6 g/dl (14.0-18.0); Imm Gran Abs Auto 0.07 X10*3/uL (0.00-0.03); Imm Gran Pct Auto 0.8 % (0.0-0.4); Lymphocytes Absolute Auto 2.4 X10*3/uL (1.2-4.9); Lymphocytes Percent Auto 27.9 % (20-40); Mean Corpuscular HGB Conc 34.4 g/dl (31.0-36.0); Mean Corpuscular Hemoglobin 32.5 pg (27.0-33.0); Mean Corpuscular Volume 94.4 fL (80.0-98.0); Mean Platelet Volume 10.2 fL (9.4-12.4); Monocytes Absolute Auto 0.8 X10*3/uL (0.1-1.2); Monocytes Percent Auto 8.9 % (2-11); Platelet Count 195 X10*3/uL (160-400); Red Blood Count 3.57 X10*6/uL (4.60-5.80); Red Cell Distribution Width 13.5 % (11.0-16.0); White Blood Count 8.7 X10*3/uL (4.8-10.8)
[2023-06-20 12:40] LABS: Alanine Aminotransferase 22 U/L (0-40); Albumin Level 4.1 g/dL (3.5-5.0); Alkaline Phosphatase 54 U/L (39-117); Anion Gap 17 (12-20); Aspartate Amino Transferase 13 U/L (5-37); Bilirubin Total 0.5 mg/dL (0.0-1.0); Blood Urea Nitrogen 43 mg/dL (9-16); Calcium 8.7 mg/dL (8.4-10.2); Carbon Dioxide 27 mmol/L (22-29); Chloride 94 mmol/L (96-108); Glucose Random 110 mg/dL (60-115); Potassium 3.6 mmol/L (3.3-5.1); Sodium 134 mmol/L (135-145); Total Protein 7.5 g/dL (6.5-8.0)
[2023-06-20 12:45] LABS: Estimated Glomerular Filt Rate 5
[2023-06-20 18:46] LABS: Influenza A PCR NEGATIVE (Negative); Influenza B PCR NEGATIVE (Negative); Resp Syncy Virus RNA Qual PCR NEGATIVE (Negative); SARS COV2 PCR INHOUSE NEGATIVE (Negative)
[2023-06-22 17:03] LABS: Lyme Abs Screen <0.90 index
== END 2023-06-20 09:25 | disposition home or self-care (01) ==
LOC: HO.HHCL 09:24
PROVIDERS: Visit Provider Emergency Medicine
DX: Z11.52 Encounter for screening for COVID-19 (principal); R68.89 Other general symptoms and signs; R68.83 Chills (without fever); Z20.822 Contact with and (suspected) exposure to COVID-19
CPT/HCPCS: 0241U; 36415; 80053; 85025; 86140; 86617; 86618; 87086

== ENCOUNTER 2023-11-16 09:02 | Outpatient (REF) | payer OTHER, SELFPAY ==
--- NOTE | ~2023-11-16 | XR_ITS ---
EXAMINATION: XR CHEST CLINICAL INFORMATION: Productive cough and wheezing COMPARISON: 06/20/2023 TECHNIQUE: 2 views of the chest were obtained. FINDINGS: Heart and mediastinum within normal limits. No vascular congestion, consolidations or effusions. Potential mild perihilar peribronchial thickening. Mild degenerative changes. XR/XR chest 2V IMPRESSION: No consolidations or failure. Question mild perihilar peribronchial thickening.
== END 2023-11-16 09:03 | disposition home or self-care (01) ==
LOC: HO.HHCX 09:02
PROVIDERS: Visit Provider Emergency Medicine
DX: J45.21 Mild intermittent asthma with (acute) exacerbation (principal); R05.1 Acute cough
CPT/HCPCS: 71046

== ENCOUNTER 2024-02-08 07:18 | Outpatient (REF) | payer OTHER, SELFPAY ==
--- NOTE | ~2024-02-08 | XR_ITS ---
EXAMINATION: XR KNEE, BILATERAL CLINICAL INFORMATION: Bilateral knee pain COMPARISON: None. TECHNIQUE: AP standing view both knees. Lateral and sunrise views of each knee. FINDINGS: Right knee: Narrowing of the lateral compartment. Marginal osteophytes in the patellofemoral compartment. Small joint effusion. No fracture. Linear ossification adjacent to the medial femoral condyle suggests a remote MCL sprain. Left knee: Small marginal osteophytes of all 3 compartments. Small joint effusion. Linear ossification adjacent to the medial femoral condyle suggests a remote MCL sprain. Diffuse vascular calcifications bilaterally. XR/XR knee RT 3V IMPRESSION: RIGHT KNEE: Moderate lateral and mild patellofemoral compartment osteoarthritis with a small joint effusion. LEFT KNEE: Mild tricompartmental osteoarthritis with a small joint effusion.
--- NOTE | ~2024-02-08 | XR_ITS ---
EXAMINATION: XR KNEE, BILATERAL CLINICAL INFORMATION: Bilateral knee pain COMPARISON: None. TECHNIQUE: AP standing view both knees. Lateral and sunrise views of each knee. FINDINGS: Right knee: Narrowing of the lateral compartment. Marginal osteophytes in the patellofemoral compartment. Small joint effusion. No fracture. Linear ossification adjacent to the medial femoral condyle suggests a remote MCL sprain. Left knee: Small marginal osteophytes of all 3 compartments. Small joint effusion. Linear ossification adjacent to the medial femoral condyle suggests a remote MCL sprain. Diffuse vascular calcifications bilaterally. XR/XR knee LT 3V IMPRESSION: RIGHT KNEE: Moderate lateral and mild patellofemoral compartment osteoarthritis with a small joint effusion. LEFT KNEE: Mild tricompartmental osteoarthritis with a small joint effusion.
== END 2024-02-08 07:19 | disposition home or self-care (01) ==
LOC: HO.HOSX 07:18
PROVIDERS: Visit Provider Physician Assistant
DX: M17.0 Bilateral primary osteoarthritis of knee (principal)
CPT/HCPCS: 73562; 99212

== ENCOUNTER 2024-02-08 08:25 | Outpatient (AMB) | payer OTHER, SELFPAY ==
--- NOTE | 2024-02-08 09:11 | MHC.OFFVIS ---
Vital Signs 02/08/24 09:16 Height 5 ft 6 in Weight 200 lb BMI 32.3 Handedness Left Intake Visit Reasons: New Pt - B/L knee pain Intake Note: Babatunde is a 73 year old male who presents today as a new patient for a evaluation of his bilateral knee pain. No hx of injury. No previous treatment. Patient reports ongoing pain for about a year. He states that pain is worse at night when he is sleeping, that pain is on the lateral aspect of both knees. Pain is worse on the left knee than the right. Patient tried and failed 3 + months of Tylenol. Allergies No Known Allergies [No Known Allergies*] Allergy (Verified 02/08/24 09:14) HPI HPI New Pt - B/L knee pain: Details: 73-year-old left hand dominant male, who is [place] speaking, presents in the office today for an evaluation of bilateral knee pain. The patient was seen by Family Medicine on 09/27/2023 with a complaint of bilateral knee pain and being unable to walk due to this pain. He was prescribed Diclofenac topical cream to be applied BID.? ? While in the office today, the patient reports ongoing pain in the bilateral knees for about a year, since 2022. He denies any prior treatment. He claims the pain increases at night when sleeping. He reports the pain along the lateral aspect of the bilateral knees. He states the pain is greater with the left knee than the right knee. He confirms using Tylenol for more than three months with no relief. ? ? Patient has a significant medical history of diabetes mellitus.?? 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 No ecchymosis, erythema, or joint effusion. No tenderness to palpation along the medial or lateral joint lines. Full knee extension and flexion. Crepitus felt with ROM. NVI.?? Assessment & Plan Assessment & Plan (1) Osteoarthritis of right knee: Code(s): M17.11 - Unilateral primary osteoarthritis, right knee Category: Medical (2) Osteoarthritis of left knee: Code(s): M17.12 - Unilateral primary osteoarthritis, left knee Category: Medical Plan Mr. Montanez is a 73-year-old left hand dominant male, who is [place] speaking, presents in the office today for an evaluation of bilateral knee pain. The patient was seen by Family Medicine on 09/27/2023 with a complaint of bilateral knee pain and being unable to walk due to this pain. He was prescribed Diclofenac topical cream to be applied BID.? ? While in the office today, the patient reports ongoing pain in the bilateral knees for about a year, since 2022. He denies any prior treatment. He claims the pain increases at night when sleeping. He reports the pain along the lateral aspect of the bilateral knees. He states the pain is greater with the left knee than the right knee. He confirms using Tylenol for more than three months with no relief. ? ? Patient has a significant medical history of diabetes mellitus.? ? We discussed the role of cortisone injections; however, the patient has declined at this time. My card was given to the patient for him to call the office to schedule at a later time. ? I educated the patient that due to his medical history of diabetes mellitus the cortisone injection can elevate his glucose numbers. Follow-up will be when the patient wishes to proceed, or sooner if needed. ? ? X-rays of the bilateral knees which were obtained while in the office today and were reviewed by me, Judy Lyn PA-C, revealed osteoarthritis bilaterally. ?? Orders: Orders XR knee RT 3V Today M25.569 - Pain in unspecified knee Patient Instructions: Scribed by Mirna Galeas, biomedical electronics technician, for Judy Lyn PA-C on 02/08/2024 at 9:16 am, EST.? Coding Level of Care Code New Pt Level 4 (51457) Diagnoses Osteoarthritis of right knee M17.11 Osteoarthritis of left knee M17.12
[2024-02-08 09:16] VITALS: BMI 32.3
== END 2024-02-08 09:49 | disposition home or self-care (01) ==
PROVIDERS: PCP Nurse Practitioner Primary Care; Visit Provider Physician Assistant
DX: M17.0 Bilateral primary osteoarthritis of knee (principal)
CPT/HCPCS: 99214

== ENCOUNTER 2024-02-19 17:30 | Outpatient (REF) | payer OTHER, SELFPAY | END 2024-02-19 17:31 | disposition home or self-care (01) | LOC: HO.HHCLNP 17:30 | PROVIDERS: Visit Provider Nurse Practitioner Family | DX: R39.9 Unspecified symptoms and signs involving the genitourinary system (principal) | CPT/HCPCS: 87086 ==

== ENCOUNTER 2024-06-16 10:04 | Outpatient (REF) | payer OTHER, SELFPAY ==
--- NOTE | ~2024-06-16 | XR_ITS ---
EXAMINATION: XR KNEE, RIGHT CLINICAL INFORMATION: Patient with greater than one week duration of right knee pain and effusion. COMPARISON: February 08, 2024 TECHNIQUE: Four views of the right knee. FINDINGS: There is no evidence of acute fracture or dislocation of the right knee. There is significant narrowing of the lateral joint space compartment with some irregularity about the lateral condylar surface. Sequela of previous medial collateral ligament injury is seen about the medial condyle. There is a right knee effusion. There appears to be some spurring of the patellofemoral joint with question narrowing. There are prominent vascular calcifications present. XR/XR knee RT 3V IMPRESSION: Right knee effusion. Degenerative change of the patellofemoral joint and lateral joint space compartment. Electronically signed by: Kentrell Dwyer MD 06/16/2024 02:46 PM EST [facility]
== END 2024-06-16 10:05 | disposition home or self-care (01) ==
LOC: HO.HHCX 10:04
PROVIDERS: Visit Provider Family Medicine
DX: M25.561 Pain in right knee (principal)
CPT/HCPCS: 73562

== ENCOUNTER 2024-06-20 14:58 | Emergency (ER) | payer OTHER, SELFPAY ==
[2024-06-20 15:21] VITALS: BP 131/59; PULSE 75; RESP 16; TEMP 37.1; O2SAT 94; BMI 33.9
--- NOTE | 2024-06-20 15:23 | ED.GENADULT ---
HPI - General Adult General Chief complaint: Extremity Injury, Lower Stated complaint: r leg and foot pain Time Seen by Provider: 06/20/24 15:54 Source: patient Mode of arrival: ambulatory Limitations: no limitations History of Present Illness ED Provider: Ann Stern NP HPI narrative: patient is a 74-year-old male who presents emergency department for evaluation of right knee pain. He reports this has been ongoing for at least a year. However over the past 2 weeks the pain has been much worse. He has been applying a cream given to him by his primary care doctor but he states no improvement with this. He also has some sort of a compressive sleeve at home but he reports minimal improvement from this. He is able to walk on the leg but it is painful to do so. Reports that he has seen an orthopedic doctor in the past but does not have their contact information to follow-up. Denies associated fevers, chills, redness, warmth, numbness or tingling to the extremity, pain or swelling to the calf, no recent fall or trauma. He reports at times he feels the pain radiating up towards his lower back if he is walking for a prolonged period. Related Data Home Medications ?Medication ?Instructions ?Recorded ?Confirmed furosemide 40 mg tablet 1 tab PO QAM 02/17/21 02/17/21 calcitriol 0.25 mcg capsule 0.25 mcg PO Q OTHER DAY 05/05/21 blood sugar diagnostic (FreeStyle #10 ea 03/16/22 Lite Strips) calcium 600 mg (as 2 tab PO QAM 03/16/22 carbonate)-vitamin D3 10 mcg (400 unit) tablet carvedilol 6.25 mg tablet 6.25 mg PO 03/16/22 insulin detemir U-100 100 unit/mL 40 unit subcut DAILY 03/16/22 (3 mL) subcutaneous pen (Levemir FlexTouch U-100 Insulin) insulin syringe-needle U-100 0.5 #10 ea 03/16/22 mL 31 gauge x 5/16 (TRUEplus Insulin) lancets 33 gauge (TRUEplus Lancets) #100 ea 03/16/22 pen needle, diabetic 31 gauge x #50 ea 03/16/22 1/4 (UltiCare Pen Needle) Previous Rx's ?Medication ?Instructions ?Recorded acetaminophen 325 mg tablet 325 mg PO Q4H PRN Pain #30 tabs 02/20/21 albuterol sulfate 90 mcg/actuation 2 puff inhalation QID PRN 02/20/21 aerosol inhaler Shortness Of Breath Or Wheezing #8.5 grams aspirin 81 mg tablet,delayed 81 mg PO QAM #30 tabs 02/20/21 release atorvastatin 10 mg tablet 10 mg PO BEDTIME #30 tabs 02/20/21 ferrous sulfate 325 mg (65 mg 325 mg PO DAILY #30 tabs 02/20/21 iron) tablet fluticasone propionate 50 2 spray intranasal DAILY PRN 02/20/21 mcg/actuation nasal Allergy Symptoms #16 grams spray,suspension tamsulosin 0.4 mg capsule 0.4 mg PO BEDTIME #30 caps 02/20/21 oxycodone 5 mg tablet 5 mg PO Q6H PRN pain #7 tabs 06/20/24 Allergies Allergy/AdvReac Type Severity Reaction Status Date / Time No Known Allergies Allergy Verified 06/20/24 15:24 [No Known Allergies*] Review of Systems Review of Systems: Yes all other systems are reviewed and are negative [facility] Past Medical History Attestation statement: The following information was validated with the patient. Source: old records reviewed Medical History Asthma Kidney disease Hypertension Diabetes Surgical History Hx of colonoscopy Family History Family History Sister Diabetes Social History Social History (Updated 02/08/24 @ 09:16 by Diane Saul) Household Members: Friend(s) Housing: Apartment Do you presently have visiting nurse or other home services: No Alcohol intake: never Patient Tobacco Use Status: Never used Tobacco e-Cigarette/Vaping Use: Never Used Advance Directives: No Advance Directives Information Provided: No Do you have a plan to hurt others: No Plan service: No Current occupational status: disabled 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 No acute distress.?Normal affect. Eyes: Pupils equal, round and reactive to light.? ENT: Pharynx normal.?? Neck: Normal inspection.? Neck supple.?? CVS: Heart sounds normal. Normal heart rate and rhythm.? Pulses normal.?? Respiratory: No respiratory distress.? Lung sounds clear to auscultation bilaterally?? Abdomen: Soft and non-tender. Normoactive bowel sounds. no CVAT. Back: no rashes or lesions. No midline lumbar spine tenderness, step-offs, deformities. No palpable paraspinal muscle tenderness. No SI joint tenderness. Skin: Skin warm and dry.? Normal skin color.? Normal skin turgor.?? Extremities: No lower extremity edema.? No calf ttp. Full range of motion to the right hip. Full range of motion to the right knee that is painful to do so. 2+ DP/PT pulse. Neuro: Moves all extremities spontaneously. Sensation intact bilaterally. Ambulates with Antalgic gait. Course Course Course Narrative: RME, this is a rapid medical exam performed by Silas Rush please refer to primary provider for complete H&P- 74-year-old male presents for evaluation of right knee pain and back pain. He was seen at the clinic 4 days ago and had an x-ray that showed a joint effusion of the right knee. He reports his back pain seems to be radiating from his knee. He is ambulatory, afebrile. Plan for basic labs Reevaluation(s) Reevaluation #1: Improvement in pain after receiving oxycodone. Discussed with patient precautionary use, short prescription to be sent to pharmacy , SIGNWRITER reviewed, encouraged further outpatient follow-up with PCP/ pain management while he is awaiting re-evaluation with orthopedist. Discussed strict return precautions. All questions answered. Medications Administered Discontinued Medications Generic Name Dose Route Start Last Admin Trade Name Freq PRN Reason Stop Dose Admin Oxycodone HCl 5 mg 06/20/24 16:19 06/20/24 16:23 Oxycodone Hcl Immed Release 5 Mg Tablet PO 06/20/24 16:20 5 mg ONCE ONE Administration Medical Decision Making Medical Decision Making [facility] Narrative: Patient is a 74-year-old male with past medical history of asthma, diabetes, hypertension, ESRD on peritoneal dialysis daily presenting for evaluation of concern for acute on chronic right knee pain as per HPI. On evaluation no obvious deformity, small effusion, no erythema warmth fevers or chills to suggest a septic arthritis. upon review of his medical record he has been experiencing bilateral knee pain since 2022, he was evaluated in the orthopedic office 02/08/2024 bilateral osteoarthritis, left has always been worse than the right, in the past he had tried management with acetaminophen for 3 months without improvement. Orthopedist offered cortisone injections, discussing possibility for elevated blood glucose levels due to his history of diabetes, he declined interest in cortisone injections at that time. He has had no recent, trauma or injury that would indicate the need for a repeat x-ray, as he just had right knee XR performed 06/16/2024 showing arthritis and knee effusion as seen on priors. Despite acetaminophen and topical cream who continues to have pain. Patient was provided with a dose of oxycodone in the emergency department. I attest that I have reviewed patients [place], and at the time prescribing the patient a controlled substance is appropriate based off of patients diagnosis and treatment plan. Differential Diagnosis Differential Diagnoses: The differential diagnosis associated with the presentation includes (See narrative above) Lab Data MDM Lab Attestation statement: I reviewed the patient's lab results. CBC is without leukocytosis, has a mild normocytic anemia that does not meet transfusion criteria, no thrombocytopenia. CKD, daily peritoneal dialysis which he is due for this evening, no hyperkalemia. CRP within normal range, ESR normal. 06/20/24 15:37 06/20/24 15:37 Labs: Lab Results 06/20/24 Range/Units 15:37 WBC 10.4 (4.8-10.8) X10*3/uL RBC 3.81 L (4.60-5.80) X10*6/uL Hgb 11.7 L (14.0-18.0) g/dl Hct 34.0 L (42.0-52.0) % MCV 89.2 (80.0-98.0) fL MCH 30.7 (27.0-33.0) pg MCHC 34.4 (31.0-36.0) g/dl RDW 15.2 (11.0-16.0) % Plt Count 171 (160-400) X10*3/uL MPV 9.7 (9.4-12.4) fL Immature Gran % (Auto) 4.7 H (0.0-0.4) % Neut % (Auto) 58.4 (45-73) % Lymph % (Auto) 22.4 (20-40) % Taylor % (Auto) 10.3 (2-11) % Eos % (Auto) 3.7 (0-4) % Baso % (Auto) 0.5 (0-2) % Lymph # (Auto) 2.3 (1.2-4.9) X10*3/uL Taylor # (Auto) 1.1 (0.1-1.2) X10*3/uL Eos # (Auto) 0.4 (0.0-0.4) X10*3/uL Baso # (Auto) 0.1 (0.0-0.2) X10*3/uL Abs Immat Gran (auto) 0.49 H (0.00-0.03) X10*3/uL Absolute Neuts (auto) 6.1 (2.0-8.3) x10*3/uL Absolute Nucleated RBC 0.000 (0.0-0.012) X10*3/uL Nucleated RBC % (auto) 0.0 (0.0-0.2) /100WBC ESR 13 (0-15) MM/HR Sodium 131 L (135-145) mmol/L Potassium 4.4 (3.3-5.1) mmol/L Chloride 96 (96-108) mmol/L Carbon Dioxide 25 (22-29) mmol/L Anion Gap 14 (12-20) BUN 74 H (9-16) mg/dL Creatinine 10.72 H* (0.5-1.4) mg/dL Estim Creat Clear Calc 6.6 Estimated GFR 5 Random Glucose 123 H (60-115) mg/dL Calcium 9.8 D (8.4-10.2) mg/dL C-Reactive Protein < 0.10 (< or = 0.50) mg/dL External Record Review External record reviewed: Prior outpatient radiology and Other ([facility]) XR/XR knee RT 3V IMPRESSION: Right knee effusion. Degenerative change of the patellofemoral joint and lateral joint space compartment. Electronically signed by: Kentrell Dwyer MD 06/16/2024 02:46 PM [facility] Tests considered The following testing was considered but not selected: see narrative above Prescription Management I considered prescription management with: Pain Medication ( see narrative above) Discharge Plan Discharge Clinical Impression: Osteoarthritis of right knee Patient Disposition: Home, Self-Care Instructions: Osteoarthritis (ED) Additional Instructions: As discussed, you may consider outpatient follow-up with orthopedics to discuss cortisone injections if that is something that you are interested in at this point. Their contact information has been included with this discharge. Continue to rest, apply ice to the area for 10-15 minutes 3-4 times daily, use Luis bandage or compressive sleeve, elevate your leg above the level of the chest. Tried refrain from any excessive walking repetitive motion as this may worsen the symptoms. As Tylenol has not been helpful thus far, with your history of kidney disease, I have sent a prescription for a stronger pain medication to your pharmacy. Oxycodone which is a narcotic medication may be addictive and it can make you drowsy. You should not drive, drink alcohol, or work while taking this medication. From the emergency department very short prescription to cover 2-3 days has been sent to the pharmacy. I recommend that you contact your primary care doctor while you are waiting outpatient follow-up with the orthopedic to discuss further pain management options and/or referral to pain management clinic. Prescriptions: New oxycodone 5 mg tablet 5 mg PO Q6H PRN (Reason: pain) Qty: 7 0RF Rx Instructions: Partial Fill upon patient request. No Action furosemide 40 mg tablet 1 tab PO QAM acetaminophen 325 mg tablet 325 mg PO Q4H PRN (Reason: Pain) Qty: 30 0RF atorvastatin 10 mg tablet 10 mg PO BEDTIME Qty: 30 0RF aspirin 81 mg tablet,delayed release (DR/EC) 81 mg PO QAM Qty: 30 0RF tamsulosin 0.4 mg capsule 0.4 mg PO BEDTIME Qty: 30 0RF ferrous sulfate 325 mg (65 mg iron) tablet 325 mg PO DAILY Qty: 30 0RF albuterol sulfate 90 mcg/actuation HFA aerosol inhaler 2 puff inhalation QID PRN (Reason: Shortness Of Breath Or Wheezing) Qty: 8.5 0RF fluticasone propionate 50 mcg/actuation spray,suspension 2 spray intranasal DAILY PRN (Reason: Allergy Symptoms) Qty: 16 0RF calcitriol 0.25 mcg capsule 0.25 mcg PO Q OTHER DAY (DME) lancets [TRUEplus Lancets] 33 gauge misc See Rx Instructions .ROUTE TID Qty: 100 Rx Instructions: As directed (DME) FreeStyle Lite Strips Strip See Rx Instructions Not Applicable .MEDSUPPLY Qty: 10 Rx Instructions: As directed Levemir FlexTouch U100 Insulin 100 unit/mL (3 mL) insulin pen 40 unit subcut DAILY carvedilol 6.25 mg tablet 6.25 mg PO (DME) pen needle, diabetic [UltiCare Pen Needle] 31 gauge x 1/4 needle See Rx Instructions .ROUTE DAILY Qty: 50 Rx Instructions: As directed calcium carbonate-vitamin D3 600 mg-10 mcg (400 unit) tablet 2 tab PO QAM (DME) insulin syringe-needle U-100 [TRUEplus Insulin] 0.5 mL 31 gauge x 5/16 syringe See Rx Instructions .ROUTE DAILY Qty: 10 Rx Instructions: As directed Referrals: [facility] Orthopedic Surgeons [Provider Group] Alisson Hudson CONTINUOUS IMPROVEMENT FACILITATOR [Primary Care Provider] - Interventions: ED Discharge Assessment Last Done: 06/20/24 17:52 Discharge Date/Time: 06/20/24 17:53 Print Language: Indonesian
[2024-06-20 15:42] LABS: MANUAL DIFF FLAG NO
[2024-06-20 15:43] LABS: Basophils Absolute Auto 0.1 X10*3/uL (0.0-0.2); Basophils Percent Auto 0.5 % (0-2); Eosinophils Absolute Auto 0.4 X10*3/uL (0.0-0.4); Eosinophils Percent Auto 3.7 % (0-4); Hemoglobin 11.7 g/dl (14.0-18.0); Imm Gran Abs Auto 0.49 X10*3/uL (0.00-0.03); Imm Gran Pct Auto 4.7 % (0.0-0.4); Lymphocytes Absolute Auto 2.3 X10*3/uL (1.2-4.9); Lymphocytes Percent Auto 22.4 % (20-40); Mean Corpuscular HGB Conc 34.4 g/dl (31.0-36.0); Mean Corpuscular Hemoglobin 30.7 pg (27.0-33.0); Mean Corpuscular Volume 89.2 fL (80.0-98.0); Mean Platelet Volume 9.7 fL (9.4-12.4); Monocytes Absolute Auto 1.1 X10*3/uL (0.1-1.2); Monocytes Percent Auto 10.3 % (2-11); Neutrophils Absolute Auto 6.1 x10*3/uL (2.0-8.3); Neutrophils Percent Auto 58.4 % (45-73); Platelet Count 171 X10*3/uL (160-400); Red Blood Count 3.81 X10*6/uL (4.60-5.80); Red Cell Distribution Width 15.2 % (11.0-16.0); White Blood Count 10.4 X10*3/uL (4.8-10.8)
[2024-06-20 16:04] VITALS: BP 140/64; PULSE 71; RESP 16; TEMP 37.1; O2SAT 97
[2024-06-20 16:06] LABS: Anion Gap 14 (12-20); Blood Urea Nitrogen 74 mg/dL (9-16); C Reactive Protein < 0.10 mg/dL (< or = 0.50); Calcium 9.8 mg/dL (8.4-10.2); Carbon Dioxide 25 mmol/L (22-29); Chloride 96 mmol/L (96-108); Creatinine Clr Calc Pharmacy 6.6; Estimated Glomerular Filt Rate 5; Glucose Random 123 mg/dL (60-115); Potassium 4.4 mmol/L (3.3-5.1); Sodium 131 mmol/L (135-145)
--- NOTE | 2024-06-20 16:06 | PC.NURSE ---
Critical Value creatinine 10.72, provider Lv made aware.
[2024-06-20 16:20] LABS: Erythrocyte Sedimentation Rate 13 MM/HR (0-15)
[2024-06-20] MEDS: oxyCODONE HCl Immed Release 5 MG TABLET PO (16:23)
[2024-06-20 17:40] VITALS: BP 129/59; PULSE 85; RESP 16; TEMP 36.8; O2SAT 96
[2024-06-20 17:52] VITALS: BP 129/59; PULSE 85; RESP 16; TEMP 36.8; O2SAT 96
== END 2024-06-20 17:53 | disposition home or self-care (01) ==
PROVIDERS: Physician Assistant; Emergency Provider Internal Medicine; PCP Nurse Practitioner Primary Care
DX: M17.11 Unilateral primary osteoarthritis, right knee (principal); M25.561 Pain in right knee; E11.22 Type 2 diabetes mellitus with diabetic chronic kidney disease; I12.0 Hypertensive chronic kidney disease with stage 5 chronic kidney disease or end stage renal disease; N18.6 End stage renal disease; Z99.2 Dependence on renal dialysis
CPT/HCPCS: 36415; 80048; 85025; 85652; 86140; 99283; 99284

== ENCOUNTER 2024-07-08 10:04 | Outpatient (REF) | payer OTHER, SELFPAY ==
--- OUTSIDE RECORDS SUMMARY | 2024-07-09 19:41 | XMS_ITS | Data Portability ---
Author Organization [facility] [employer] [place], [place] in - [facility] Address [address] [place] [id number] Care Team Providers Care Pathology Specialist Name Role Phone HIM CCA OTHER Assessment No assessment recorded. Plan of Treatment Reminders Order Date Submit Date Provider Last Modified By Organization Details Last Modified Time Details Appointments None recorded. Lab urinalysis , dipstick [address] [facility], [address] [place] [address], [phone], 18:15:01 Referral None recorded. Procedures None recorded. Surgeries None recorded. Imaging None recorded. Medication Orders None recorded. Patient TargetsNo targets recorded. Patient InstructionsNo instructions recorded. Reason for Referral None Reported. Results Created Date Observation Date Name Description Value Unit Range Abnormal Flag Note LastModifiedBy Organization Detail LastModifiedTime 02/18/20 24 02/18/2024 urina lysis , dipst ick Leukocytes Neg Not Available [facility] - [address], [address], 02/18/2024 18:08:20 02/18/20 24 02/18/2024 urina lysis , dipst ick Nitrite negati ve Not Available [facility] - [facility] [address], [address], 02/18/2024 18:08:20 02/18/20 24 02/18/2024 urina lysis , dipst ick Protein +++ Not Available [facility] - [facility] [address], [address], 02/18/2024 18:08:20 02/18/20 24 02/18/2024 urina lysis , dipst ick Ketone Neg Not Available [facility] - [facility] [address], [address], 02/18/2024 18:08:20 02/18/20 24 02/18/2024 urina lysis , dipst ick Glucose Neg Not Available [facility] - [facility] [address], [place], [address], 02/18/2024 18:08:20 Result Notes None recorded. Medical Equipment None Reported. Medications Name Sig Start Date Stop Date Status Note LastModified by Organization Details LastModified Time medbox status USE DIRECTED active Not Available Not Available No t Available atorvastatin 80 mg tablet TAKE 1 TABLET BY MOUTH AT BEDTIME active Not Available Not Available No t Available carvedilol 6.25 mg tablet TAKE 1/2 TABLET BY MOUTH TWICE DAILY IN THE MORNING AND AT BEDTIME active Not Available Not Available No t Available albuterol sulfate 2.5 mg/3 mL (0.083 %) solution for nebulization INHALE 1 AMPULE USING A NEBULIZER THREE TIMES DAILY active Not Available Not Available No t Available polyethylene glycol 3350 17 gram oral powder packet MEZCLAR 1 PAQUETE EN 8 ONZAS DE AQUA, JUGO, CAFE O TE Y GALDINO 2-3 AL JACK UNTIL FINISH BOWEL MOVEMENT active Not Available Not Available No t Available prednisone 20 mg tablet TAKE 1 TABLET BY MOUTH EVERY DAY FOR 5 DAYS active Not Available Not Available No t Available aspirin 81 mg tablet,delay ed release TAKE 1 TABLET BY MOUTH EVERY MORNING active Not Available Not Available No t Available tamsulosin 0.4 mg capsule TAKE 1 CAPSULE BY MOUTH AT BEDTIME active Not Available Not Available No t Available ropinirole 0.25 mg tablet TAKE 1 TABLET BY MOUTH AT BEDTIME active Not Available Not Available No t Available amlodipine 10 mg tablet TAKE 1 TABLET BY MOUTH EVERY MORNING active Not Available Not Available No t Available hydralazine 50 mg tablet TAKE 1 TABLET BY MOUTH TWICE DAILY IN THE MORNING AND IN THE EVENING active Not Available Not Available No t Available furosemide 20 mg tablet TAKE 1 TABLET BY MOUTH TWICE DAILY IN THE MORNING AND IN THE EVENING active Not Available Not Available No t Available gabapentin 100 mg capsule active Not Available Not Available Not Available fluticasone propionate 50 mcg/actuatio n nasal spray,suspen cholo INSTILL 2 SPRAYS IN EACH NOSTRIL ONCE DAILY IN THE MORNING NEEDED active Not Available Not Available No t Available calcitriol 0.25 mcg capsule active Not Available Not Available Not Available amoxicillin 500 mg-potassium clavulanate 125 mg tablet TAKE 1 TABLET BY MOUTH EVERY TWELVE HOURS FOR 4 DAYS active Not Available Not Available No t Available Ventolin HFA 90 mcg/actuatio n aerosol inhaler INHALE 2 PUFFS EVERY 4 HOURS NEEDED FOR WHEEZING OR SHORTNESS OF BREATH active Not Available Not Available No t Available Novolog FlexPen U-100 Insulin aspart 100 unit/mL (3 mL) subcutaneous INJECT 4 UNITS SUBCUTANEOU SLY WITH LUNCH DIRECTED active Not Available Not Available No t Available Levemir FlexPen 100 unit/mL (3 mL) solution subcutaneous insulin pen INJECT 42 UNITS SUBCUTANEOU SLY EVERY DAY active Not Available Not Available No t Available FreeStyle Lite Strips TEST BLOOD SUGAR THREE TIMES DAILY BEFORE MEALS active Not Available Not Available No t Available sevelamer carbonate 800 mg tablet TAKE 1 TABLET BY MOUTH THREE TIMES DAILY IN THE MORNING, AT NOON, AND IN THE EVENING. TAKE WITH FOOD, SWALLOW WHOLE, DO NOT BREAK, CRUSH, DISSOLVE OR CHEW active Not Available Not Available No t Available diclofenac 1 % topical gel APPLY 2 GRAMS TO AFFECTED AREA(S) UP TO TWICE DAILY FOR FOR JOINT PAIN / FOR SWELLING active Not Available Not Available No t Available Easy Touch 31 gauge x 1/4 needle USE DIRECTED TWICE DAILY active Not Available Not Available Not Available GaviLyte-G 236 gram-22.74 gram-6.74 gram-5.86 gram oral solution MIX WITH WATER DIRECTED AND DRINK 240 ML BY MOUTH EVERY 10 MINUTES active Not Available Not Available N ot Available Triphrocaps 1 mg capsule TAKE 1 CAPSULE BY MOUTH EVERY MORNING active Not Available Not Available No t Available TRUEplus Lancets 33 gauge USE TEST BLOOD SUGAR THREE TIMES DAILY active Not Available Not Available No t Available Prolensa 0.07 % eye drops INSTILL 1 DROP IN THE LEFT EYE ONCE DAILY AT BREAKFAST. START 2 DAYS BEFORE SURGERY. active Not Available Not Available No t Available Vitals Date Recorded Heart rate Oxygen saturation Oxygen saturation in Arterial blood by Pulse oximetry Body temperature Respiratory rate Systolic blood pressure Diastolic blood pressure Provider Name and Address Organization Details Last Updated DateTime 4 74 /min 93 % 93 % 99.4 [degF] 18 /min 150 mm[Hg] 70 mm[Hg] Not Available [facility] - production 17:11:01 Social History None recorded. Functional Status None recorded. Mental Status None recorded. Family History Nothing Reported. Medical History No medical history recorded. Past Encounters Encounter ID Performer Location Encounter Start Date Encounter Closed Date Diagnosis/Indication Diagnosis SNOMED-CT Code Diagnosis ICD10 Code [id number] Goldie Hoyt MD [facility] - [facility] [address] [place] [address] 02/18/2024 17:10:58 02/18/2024 21:35:30 Fever 184402584 R50.9 Health Concerns Section Related Observation LastModified by Organization Detai ls LastModified Time None Recorded Concern Status LastModified by Organization Details LastModified Time None Recorded Advance Directives Directive None Recorded Payers Encounter Date Sequence Insurance Name Policy Number Policy Parks Covered Member ID Parks Member ID Guarantor Name 02/18/2024 1 [facility] - DOS ON OR AFTER 2022 - DUAL ELIGIBLE - NURSING HOME OPTIONS AND ONE CARE (MEDICARE REPLACEMENT/ADV ANTAGE - HMO) Babatunde Montanez [id number] Babatunde Montanez Notes Date Note Type Note Provider Name and Address Organization Details Recorded Time 02/18/2024 text/html CRC Nurse Triage Notes (Flor Deluna): Reason For Request: Pt's AYLINA Bhavinah reporting running a fever of 100.2 Chief Complaints: Fever/Chills PMH: Diabetes, Hypertension, Other Allergies: No Known Comments: Supervisor [employer] verified the member's name//address and phone number. Member is a 73 yr old male PMH > peritoneal Dialysis in the home / DM/ HTN/ HLD/ Allergies > NKDA on ASA , no blood thinner Member has a fever of 100.2, has given tylenol, no change. Member went to the hospital and was admitted for an infection due ESSIE , on HD . was on IV antibiotics and now is on po augmentin 500mg. Per staff, his infection was in his dialysis line that was replaced. Education provided on the response time and the member was advised to monitor reported s/s and seek emergency treatment if needed Food Service Aide POC Test Results from Jey Scott Urine Dipstick (1) [17:18] Urine leukocytes: - SUZAN Urine nitrites: - NIT Urine urobilinogen: - URO Urine protein: +++ PRO Urine pH: 5.0 pH Urine blood: - BLO Urine specific gravity: 1.010 SG Urine ketones: - KET Urine bilirubin: - SERVANDO Urine glucose: - GLU .................. .................. .................. .................. .................. .................. .................. ............... Food Service Aide Note From Jey Scott: Dispatched to the call address for the male with a fever. Pt states he went to the ED a couple of weeks ago and was diagnosed with an UTI and infection of his parenteral dialysis port. Pt was treated with IV abx and sent home on amox. Pt did not have discharge paperwork because his [facility] took them with him. Pt states he still has some mild discomfort when urinating and had a fever of 100.3 earlier. He has been taking 1g of PO Tylenol 3x daily with good effect. Pt still with 1 dose of amox left. Pt was found sitting on edge of bed, CAOx4, airway open and patent, breathing non labored, able to speak in full sentences, -JVD, -HEENT, skin PWD with good turgor, abd soft non tender/distended, pupils PERRL, +CMSx4, lung sounds CTA. [facility] consulted. UA (-). [facility] to reach out to Pts dialysis management and attempt to have blood cultures drawn. Red flags discussed. ALL times are approx. .................. .................. .................. .................. .................. .................. .................. ............... Disposition: Fulfilled Goldie Hoyt MD [address] [place] [address],[address], [place], [address], ARCHANA RÍOS 02/18/2024 18:15:30
== END 2024-07-08 10:05 | disposition home or self-care (01) ==
LOC: HO.HHCX 10:04
PROVIDERS: PCP Nurse Practitioner Primary Care; Visit Provider Emergency Medicine
DX: J45.21 Mild intermittent asthma with (acute) exacerbation (principal)
CPT/HCPCS: 71046

== ENCOUNTER → 2024-07-08 10:06 | Outpatient (BNV) | payer OTHER, SELFPAY | PROVIDERS: PCP Nurse Practitioner Primary Care; Visit Provider Radiology Diagnostic Radiology | DX: R05.8 Other specified cough (principal) | CPT/HCPCS: 71046 ==

== ENCOUNTER 2024-07-17 15:34 | Emergency (ER) | payer OTHER, SELFPAY ==
--- NOTE | ~2024-07-17 | XR_ITS ---
EXAMINATION: XR CHEST CLINICAL INFORMATION: cough COMPARISON: 07/08/2024. 11/16/2023. TECHNIQUE: 2 views of the chest were obtained. FINDINGS: The cardiac, hilar, and mediastinal contours are normal. The lungs are clear bilaterally. There is no pneumothorax or pleural effusion. There is no focal osseous or soft tissue abnormality. XR/XR chest 2V IMPRESSION: No active pulmonary disease. Electronically signed by: Aldo Headley MD 07/17/2024 04:21 PM [facility]
[2024-07-17 15:42] VITALS: BP 135/66; PULSE 83; RESP 20; TEMP 37.4; O2SAT 96; BMI 34.2
--- NOTE | 2024-07-17 15:47 | ED_ITS ---
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 Patient states that his symptoms started 1 week ago, states that he had a productive cough with yellow/clear sputum, which he now states that he has a loose cough however he is unable to cough the sputum up. He endorses chills, he is unsure about any fevers. He denies any severe headache, dizziness, chest pain, palpitations, abdominal pain, nausea, vomiting or diarrhea. No lower extremity swelling. Denies taking any medications today to treat his current symptoms. No other complaints or concerns at this time. MD elicited complaint: cough, rhinorrhea and nasal congestion Pertinent past history: asthma Onset (ago): week(s) Consistency: constant Severity: moderate Description of mucous: clear Able to tolerate fluids by mouth: Yes Exacerbating factors: nothing Relieving factors: nothing Associated symptoms: chills, nasal congestion and shortness of breath Treatments prior to arrival: none Related Data Home Medications ?Medication ?Instructions ?Recorded ?Confirmed furosemide 40 mg tablet 1 tab PO QAM 02/17/21 02/17/21 calcitriol 0.25 mcg capsule 0.25 mcg PO Q OTHER DAY 05/05/21 blood sugar diagnostic (FreeStyle #10 ea 03/16/22 Lite Strips) calcium 600 mg (as 2 tab PO QAM 03/16/22 carbonate)-vitamin D3 10 mcg (400 unit) tablet carvedilol 6.25 mg tablet 6.25 mg PO 03/16/22 insulin detemir U-100 100 unit/mL 40 unit subcut DAILY 03/16/22 (3 mL) subcutaneous pen (Levemir FlexTouch U-100 Insulin) insulin syringe-needle U-100 0.5 #10 ea 03/16/22 mL 31 gauge x 5/16 (TRUEplus Insulin) lancets 33 gauge (TRUEplus Lancets) #100 ea 03/16/22 pen needle, diabetic 31 gauge x #50 ea 03/16/22 1/ (UltiCare Pen Needle) Previous Rx's ?Medication ?Instructions ?Recorded acetaminophen 325 mg tablet 325 mg PO Q4H PRN Pain #30 tabs 02/20/21 albuterol sulfate 90 mcg/actuation 2 puff inhalation QID PRN 02/20/21 aerosol inhaler Shortness Of Breath Or Wheezing #8.5 grams aspirin 81 mg tablet,delayed 81 mg PO QAM #30 tabs 02/20/21 release atorvastatin 10 mg tablet 10 mg PO BEDTIME #30 tabs 02/20/21 ferrous sulfate 325 mg (65 mg 325 mg PO DAILY #30 tabs 02/20/21 iron) tablet fluticasone propionate 50 2 spray intranasal DAILY PRN 02/20/21 mcg/actuation nasal Allergy Symptoms #16 grams spray,suspension tamsulosin 0.4 mg capsule 0.4 mg PO BEDTIME #30 caps 02/20/21 oxycodone 5 mg tablet 5 mg PO Q6H PRN pain #7 tabs 06/20/24 acetaminophen 325 mg tablet 650 mg (2 x 325 mg) PO Q6H PRN 07/17/24 (Tylenol) pain #20 tabs prednisone 20 mg tablet 40 mg (2 x 20 mg) PO DAILY 5 days 07/17/24 #10 tabs Allergies Allergy/AdvReac Type Severity Reaction Status Date / Time No Known Allergies Allergy Verified 07/17/24 15:45 [No Known Allergies*] Review of Systems 2 Review of Systems: Yes all other systems are reviewed and are negative Constitutional: Constitutional: Reports as per [facility] Past Medical History Medical History Asthma Kidney disease Hypertension Diabetes Surgical History Hx of colonoscopy Family History Family History Sister Diabetes Social History Social History (Updated 02/08/24 @ 09:16 by Diane Saul) Household Members: Friend(s) Housing: Apartment Do you presently have visiting nurse or other home services: No Alcohol intake: never Patient Tobacco Use Status: Never used Tobacco Smoked in Last 30 Days: No e-Cigarette/Vaping Use: Never Used Use of substances other than those prescribed or required for medical reasons: No Advance Directives: No Advance Directives Information Provided: No Do you have a plan to hurt others: No Plan service: No Current occupational status: disabled 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 Physical Exam 2 Vital Signs: Vital Signs: Last Vital Signs Temp 98.5 F 07/17/24 17:56 Pulse 78 07/17/24 18:37 Resp 14 07/17/24 18:37 BP 135/65 07/17/24 17:56 Pulse Ox 96 07/17/24 19:00 O2 Del Method Room Air 07/17/24 19:00 BMI result Body Mass Index 34.2 Const: General: cooperative, comfortable and no acute distress O rientation/consciousness: patient oriented x3 Limitations: no limitations HEENT: Head: Yes normal to inspection, Yes normocephalic and Yes atraumatic Ears: hearing grossly normal bilaterally General nose exam: Normal external nose present Face and sinus: Yes normal facial exam Mouth: Normal oral and palatal mucosa present, oropharynx normal and moist mucous membranes Throat: Yes posterior oropharynx normal Eyes: General: appearance normal, both eyes and all related structures E yelids: Yes eyelids normal Conjunctivae: conjunctivae normal Sclerae: s clerae normal Pupils: Equal, round and reactive pupils present EOM: EOMs intact bilaterally Neck: Neck: Yes normal visual inspection, Yes full ROM and Yes no lymphadenopathy Lymphatic: no lymphadenopathy noted Chest: Chest palpation & inspection: normal inspection of the chest Resp: Other: Inspiratory and expiratory wheezes noted throughout all lung salas. Effort & Inspection: normal respiratory effort and able to speak in complete sentences Cardio: Rate: regular rate Rhythm: regular rhythm Heart sounds: S1 normal heart sound present and S2 normal heart sound present GI: Inspection: Yes normal to inspection Skin: General skin exam: no rashes or lesions noted Trauma: no lacerations or abrasions Wounds: no wounds Neuro: General: patient oriented x3 and moves all extremities Cranial nerves: Yes Equal, round and reactive pupils present Extrem: Other: No lower extremity swelling noted. General: Yes normal to inspection Right upper extremity: normal to inspection Left upper extremity: normal to inspection Right lower extremity: normal to inspection Left lower extremity: normal to inspection Course Course Course Narrative: This is a Rapid Medical Examination (RME) performed by Delmis Sweeeny PA-C in triage. Full HPI, ROS, assessment and treatment plan per primary provider in the Main ED. 74 yo male presenting to the ER for evaluation of cough and chills for 1 week. VSS in triage, speaking in complete sentences. Plan: CXR, viral swab Reevaluation(s) Reevaluation #1: Received critical creatinine of 11.82. He has a history of end-stage renal disease, last creatinine levels were 10.72 in May 2024. Patient is being followed by Dr. Florse in [place] for nephrology. BNP 140, does not appear to be fluid overloaded. Troponin 34.9, he does not have any chest pain therefore 2nd troponin not indicated at this time. Ambulatory O2 saturation 95-96% on room air. Patient is feeling much better. He has not hypoxic he is not tachypneic. Given improved lung sounds, and he is feeling much better, patient is comfortable to be discharged home. His kidney function is worse than his baseline however patient received peritoneal dialysis which he is due for tonight. He can do this at home. I discussed this case with my attending physician, Dr. Mabry, patient does not meet admission criteria at this time, return, stable for discharge Time: 19:00 Medications Administered Discontinued Medications Generic Name Dose Route Start Last Admin Trade Name Freq PRN Reason Stop Dose Admin Albuterol Sulfate 5 mg/ 0 mg 07/17/24 18:36 07/17/24 18:45 Albuterol/Ipratropium 3 ml INHALE 07/17/24 18:37 7.5 each ONCE ONE Administration Methylprednisolone Sodium Succinate 80 mg 07/17/24 18:26 07/17/24 18:52 Methylprednisolone Sod Succ 125 Mg/2 Ml Vial IVPUSH 07/17/24 18:27 80 mg ONCE ONE Administration Medical Decision Making Medical Decision Making MDM Narrative: This is a 74-year-old male, history of end-stage renal disease on daily peritoneal dialysis, hypertension, hyperlipidemia, asthma, who presents emergency department with complaints of cough, wheezing, and chills for the last week. Patient also endorses denies weakness. On initial arrival, oxygen saturation 96% on room air, upon my evaluation, he was 92% on room air, speaking full sentences however frequent tight sounding cough. Lungs with inspiratory and expiratory wheezes noted throughout all lung salas. Patient tested positive for RSV, negative for flu, COVID. Chest x-ray was performed revealing no evidence of pneumonia. Given lung sounds, as well as comorbidities, will obtain blood work, EKG. Patient will be evaluated by the respiratory therapist, and patient will be medicated with Solu-Medrol and magnesium. We will continue to closely monitor. Differential Diagnosis Differential Diagnoses: The differential diagnosis associated with the presentation includes Pneumonia, RSV, COVID, acute respiratory failure Admission/Observation Consideration of admission/observation: Escalation of care including admission/observation considered Lab Data MDM Lab Attestation statement: I reviewed the patient's lab results. 07/17/24 18:33 07/17/24 18:33 Labs: Lab Results 07/17/24 07/17/24 Range/Units 15:58 18:33 WBC 7.9 (4.8-10.8) X10*3/uL RBC 3.36 L (4.60-5.80) X10*6/uL Hgb 10.4 L (14.0-18.0) g/dl Hct 31.0 L (42.0-52.0) % MCV 92.3 (80.0-98.0) fL MCH 31.0 (27.0-33.0) pg MCHC 33.5 (31.0-36.0) g/dl RDW 16.3 H (11.0-16.0) % Plt Count 180 (160-400) X10*3/uL MPV 9.3 L (9.4-12.4) fL Immature Gran % (Auto) 2.9 H (0.0-0.4) % Neut % (Auto) 58.9 (45-73) % Lymph % (Auto) 20.3 (20-40) % [place] % (Auto) 11.1 H (2-11) % Eos % (Auto) 6.3 H (0-4) % Baso % (Auto) 0.5 (0-2) % Lymph # (Auto) 1.6 (1.2-4.9) X10*3/uL [place] # (Auto) 0.9 (0.1-1.2) X10*3/uL Eos # (Auto) 0.5 H (0.0-0.4) X10*3/uL Baso # (Auto) 0.0 (0.0-0.2) X10*3/uL Abs Immat Gran (auto) 0.23 H (0.00-0.03) X10*3/uL Absolute Neuts (auto) 4.7 (2.0-8.3) x10*3/uL Absolute Nucleated RBC 0.000 (0.0-0.012) X10*3/uL Nucleated RBC % (auto) 0.0 (0.0-0.2) /100WBC Sodium 137 (135-145) mmol/L Potassium 4.7 (3.3-5.1) mmol/L Chloride 102 (96-108) mmol/L Carbon Dioxide 23 (22-29) mmol/L Anion Gap 17 (12-20) BUN 71 H (9-16) mg/dL Creatinine 11.82 H* (0.5-1.4) mg/dL Estim Creat Clear Calc 6.0 Estimated GFR 4 Random Glucose 110 (60-115) mg/dL Calcium 8.0 L D (8.4-10.2) mg/dL Magnesium 2.0 (1.6-2.6) mg/dL Total Bilirubin 0.6 (0.0-1.0) mg/dL Direct Bilirubin 0.2 (0.0-0.5) mg/dL AST 21 (5-37) U/L ALT 32 (0-40) U/L Alkaline Phosphatase 47 (39-117) U/L Troponin I High Sens 34.9 (<3.5-35.0) ng/L B-Natriuretic Peptide 140 H (<100) pg/mL Total Protein 6.6 (6.5-8.0) g/dL Albumin 3.6 (3.5-5.0) g/dL Influenza Type A (PCR) NEGATIVE (Negative) Influenza Type B (PCR) NEGATIVE (Negative) RSV RNA Qual (PCR) POSITIVE A (Negative) SARS-CoV-2 RNA (RT-PCR) NEGATIVE (Negative) Radiology Impression Discussion of test interpretation with radiology: I have reviewed the radiologist's reading. Radiologist Impression: EXAMINATION: XR CHEST CLINICAL INFORMATION: cough COMPARISON: 07/08/2024. 11/16/2023. TECHNIQUE: 2 views of the chest were obtained. FINDINGS: The cardiac, hilar, and mediastinal contours are normal. The lungs are clear bilaterally. There is no pneumothorax or pleural effusion. There is no focal osseous or soft tissue abnormality. XR/XR chest 2V IMPRESSION: No active pulmonary disease. Electronically signed by: Aldo Headley MD 07/17/2024 04:21 PM [facility] Dictated By: Aldo Headley MD Discharge Plan Discharge Clinical Impression: Respiratory syncytial virus (RSV), ESRD (end stage renal disease) on dialysis Patient Disposition: Home, Self-Care Instructions: Respiratory Syncytial Virus (ED), End Stage Kidney Disease (ED) Additional Instructions: You were seen in the emergency department due to cough. You have RSV, this is a virus that is contagious and can cause your symptoms. Please get plenty of rest, drink plenty of fluids. Continue with the albuterol inhaler at home. Take prednisone as prescribed, this was sent to with the [facility] [place], start this tomorrow. Take Tylenol as needed for fevers and chills. If any new or worsening symptoms occur including but not limited to severe shortness of breath, chest pain, please seek emergent care Prescriptions: New prednisone 20 mg tablet 40 mg PO DAILY 5 Days Qty: 10 0RF acetaminophen [Tylenol] 325 mg tablet 650 mg PO Q6H PRN (Reason: pain) Qty: 20 0RF No Action furosemide 40 mg tablet 1 tab PO QAM acetaminophen 325 mg tablet 325 mg PO Q4H PRN (Reason: Pain) Qty: 30 0RF atorvastatin 10 mg tablet 10 mg PO BEDTIME Qty: 30 0RF aspirin 81 mg tablet,delayed release (DR/EC) 81 mg PO QAM Qty: 30 0RF tamsulosin 0.4 mg capsule 0.4 mg PO BEDTIME Qty: 30 0RF ferrous sulfate 325 mg (65 mg iron) tablet 325 mg PO DAILY Qty: 30 0RF albuterol sulfate 90 mcg/actuation HFA aerosol inhaler 2 puff inhalation QID PRN (Reason: Shortness Of Breath Or Wheezing) Qty: 8.5 0RF fluticasone propionate 50 mcg/actuation spray,suspension 2 spray intranasal DAILY PRN (Reason: Allergy Symptoms) Qty: 16 0RF oxycodone 5 mg tablet 5 mg PO Q6H PRN (Reason: pain) Qty: 7 0RF Rx Instructions: Partial Fill upon patient request. calcitriol 0.25 mcg capsule 0.25 mcg PO Q OTHER DAY (DME) lancets [TRUEplus Lancets] 33 gauge misc See Rx Instructions .ROUTE TID Qty: 100 Rx Instructions: As directed (DME) FreeStyle Lite Strips Strip See Rx Instructions Not Applicable .MEDSUPPLY Qty: 10 Rx Instructions: As directed Levemir FlexTouch U100 Insulin 100 unit/mL (3 mL) insulin pen 40 unit subcut DAILY carvedilol 6.25 mg tablet 6.25 mg PO (DME) pen needle, diabetic [UltiCare Pen Needle] 31 gauge x 1/4 needle See Rx Instructions .ROUTE DAILY Qty: 50 Rx Instructions: As directed calcium carbonate-vitamin D3 600 mg-10 mcg (400 unit) tablet 2 tab PO QAM (DME) insulin syringe-needle U-100 [TRUEplus Insulin] 0.5 mL 31 gauge x 5/16 syringe See Rx Instructions .ROUTE DAILY Qty: 10 Rx Instructions: As directed Print Language: Faroese
[2024-07-17 16:46] LABS: Influenza A PCR NEGATIVE (Negative); Influenza B PCR NEGATIVE (Negative); Resp Syncy Virus RNA Qual PCR POSITIVE (Negative); SARS COV2 PCR INHOUSE NEGATIVE (Negative)
[2024-07-17 17:56] VITALS: BP 135/65; PULSE 78; RESP 16; TEMP 36.9; O2SAT 92
--- NOTE | 2024-07-17 18:15 | ECG_ITS ---
Test Reason : sob Blood Pressure : / mmHG Vent. Rate : 083 BPM Atrial Rate : 083 BPM P-R Int : 150 ms QRS Dur : 098 ms QT Int : 378 ms P-R-T Axes : 088 -16 066 degrees QTc Int : 444 ms Normal sinus rhythm Normal ECG When compared with ECG of 28-JUN-2022 14:08, T wave inversion no longer evident in Anterior leads Referred By: Farzana Reddy Electronically Signed By:EDWIN BARRIENTOS
[2024-07-17 18:37] VITALS: PULSE 78; RESP 14; O2SAT 97
[2024-07-17 18:40] LABS: Basophils Percent Auto 0.5 % (0-2); Eosinophils Absolute Auto 0.5 X10*3/uL (0.0-0.4); Eosinophils Percent Auto 6.3 % (0-4); Hemoglobin 10.4 g/dl (14.0-18.0); Imm Gran Abs Auto 0.23 X10*3/uL (0.00-0.03); Imm Gran Pct Auto 2.9 % (0.0-0.4); Lymphocytes Absolute Auto 1.6 X10*3/uL (1.2-4.9); Lymphocytes Percent Auto 20.3 % (20-40); MANUAL DIFF FLAG NO; Mean Corpuscular HGB Conc 33.5 g/dl (31.0-36.0); Mean Corpuscular Volume 92.3 fL (80.0-98.0); Mean Platelet Volume 9.3 fL (9.4-12.4); Monocytes Absolute Auto 0.9 X10*3/uL (0.1-1.2); Monocytes Percent Auto 11.1 % (2-11); Neutrophils Absolute Auto 4.7 x10*3/uL (2.0-8.3); Neutrophils Percent Auto 58.9 % (45-73); Platelet Count 180 X10*3/uL (160-400); Red Blood Count 3.36 X10*6/uL (4.60-5.80); Red Cell Distribution Width 16.3 % (11.0-16.0); White Blood Count 7.9 X10*3/uL (4.8-10.8)
[2024-07-17] MEDS: Albuterol Sulfate 5 MG, Albuterol/Iprat 2.5/0.5MG 3 ML 3 ML INHALE (18:45)
--- OUTSIDE RECORDS SUMMARY | 2024-07-17 18:49 | XMS_ITS | Data Portability ---
Author Organization [facility] [place] [place] [facility] Address [address] [place] [phone] Care Team Providers Care Systems Management Consultant Name Role Phone HIM CCA OTHER Assessment No assessment recorded. Plan of Treatment Reminders Order Date Submit Date Provider Last Modified By Organization Details Last Modified Time Details Appointments None recorded. Lab urinalysis , dipstick 2023 024 edgard [facility], [address] [place] [address], [phone], 18:15:01 Referral None recorded. Procedures None recorded. Surgeries None recorded. Imaging None recorded. Medication Orders None recorded. Patient TargetsNo targets recorded. Patient InstructionsNo instructions recorded. Reason for Referral None Reported. Results Created Date Observation Date Name Description Value Unit Range Abnormal Flag Note LastModifiedBy Organization Detail LastModifiedTime 02/18/20 24 02/18/2024 urina lysis , dipst ick Leukocytes Neg Not Available [facility] - [address], [phone], 02/18/2024 18:08:20 02/18/20 24 02/18/2024 urina lysis , dipst ick Nitrite negati ve Not Available Main - Inst [address], [phone], 02/18/2024 18:08:20 02/18/20 24 02/18/2024 urina lysis , dipst ick Protein +++ Not Available Main - Ins [address], [phone], 02/18/2024 18:08:20 02/18/20 24 02/18/2024 urina lysis , dipst ick Ketone Neg Not Available Main - Ins [address], [phone], 02/18/2024 18:08:20 02/18/20 24 02/18/2024 urina lysis , dipst ick Glucose Neg Not Available Main - Ins [address], [place], [address], 02/18/2024 18:08:20 Result Notes None recorded. Medical [...] Diagnosis/Indication Diagnosis SNOMED-CT Code Diagnosis ICD10 Code 86390 Goldie Hoyt MD Main - inst[facility] [address] [place] [phone] 02/18/2024 17:10:58 02/18/2024 21:35:30 Fever [id number] R50.9 Health Concerns Section Related Observation LastModified by Organization Detai ls LastModified Time None Recorded Concern Status LastModified by Organization Details LastModified Time None Recorded Advance Directives Directive None Recorded Payers Encounter Date Sequence Insurance Name Policy Number Policy Parks Covered Member ID Parks Member ID Guarantor Name 02/18/2024 1 [facility] - DOS ON OR AFTER 2022 - DUAL ELIGIBLE - [facility] OPTIONS AND ONE CARE (MEDICARE REPLACEMENT/ADV ANTAGE - HMO) Babatunde Montanez [id number] Babatunde Montanez Notes Date Note Type Note Provider Name and Address Organization Details Recorded Time 02/18/2024 text/html CRC Nurse Triage Notes (Flor Deluna): Reason For Request: Pt's AYLINA Bhavinah reporting running a fever of 100.2 Chief Complaints: Fever/Chills PMH: Diabetes, Hypertension, Other Allergies: No Known Comments: Stain Maker verified the member's name//address and phone number. [...] s/s and seek emergency treatment if needed [employer] POC Test Results from Jey Scott Urine Dipstick (1) [17:18] Urine leukocytes: - SUZAN Urine nitrites: - NIT Urine urobilinogen: - URO Urine protein: +++ PRO Urine pH: 5.0 pH Urine blood: - BLO Urine specific gravity: 1.010 SG Urine ketones: - KET Urine bilirubin: - SERVANDO Urine glucose: - GLU .................. .................. .................. .................. .................. .................. .................. ............... [employer] Note From Jey Scott: Dispatched to the [...] .................. ............... Disposition: Fulfilled Goldie Hoyt MD [address] [place] [address],[address], [place], [phone], ARCHANA RÍOS 02/18/2024 18:15:30
[2024-07-17] MEDS: methylPREDNISolone Sod Succ 125 MG/2 ML VIAL 80 MG IVPUSH (18:52)
[2024-07-17 18:59] LABS: Alanine Aminotransferase 32 U/L (0-40); Albumin Level 3.6 g/dL (3.5-5.0); Alkaline Phosphatase 47 U/L (39-117); Anion Gap 17 (12-20); Aspartate Amino Transferase 21 U/L (5-37); Bilirubin Direct 0.2 mg/dL (0.0-0.5); Bilirubin Total 0.6 mg/dL (0.0-1.0); Blood Urea Nitrogen 71 mg/dL (9-16); Carbon Dioxide 23 mmol/L (22-29); Chloride 102 mmol/L (96-108); Estimated Glomerular Filt Rate 4; Glucose Random 110 mg/dL (60-115); Potassium 4.7 mmol/L (3.3-5.1); Sodium 137 mmol/L (135-145); Total Protein 6.6 g/dL (6.5-8.0)
[2024-07-17 19:00] VITALS: O2SAT 96
[2024-07-17 19:02] LABS: B Type Natriuretic Peptide 140 pg/mL (<100); Troponin-I High Sensitivity 34.9 ng/L (<3.5-35.0)
--- NOTE | 2024-07-17 19:14 | MHC.EDTECH ---
Addendum entered by YANCY Lopez 07/17/24 19:16: on room air Original Note: Ambulated with Pt up and down [place], O2 sat 95-96%, Pt reporting he feels okay. Farzana LANDEROS aware.
[2024-07-17 19:42] VITALS: BP 140/75; PULSE 77; RESP 18; TEMP 36.9; O2SAT 96
== END 2024-07-17 19:49 | disposition home or self-care (01) ==
PROVIDERS: Physician Assistant; Physician Assistant Medical; Emergency Provider Emergency Medicine; PCP Nurse Practitioner Primary Care
DX: R05.9 Cough, unspecified (principal); R06.02 Shortness of breath; B97.4 Respiratory syncytial virus as the cause of diseases classified elsewhere; Z03.818 Encounter for observation for suspected exposure to other biological agents ruled out; E11.22 Type 2 diabetes mellitus with diabetic chronic kidney disease; I12.0 Hypertensive chronic kidney disease with stage 5 chronic kidney disease or end stage renal disease; N18.6 End stage renal disease; Z99.2 Dependence on renal dialysis; J45.909 Unspecified asthma, uncomplicated; Z79.4 Long term (current) use of insulin; Z79.899 Other long term (current) drug therapy; Z79.82 Long term (current) use of aspirin; Z79.02 Long term (current) use of antithrombotics/antiplatelets
CPT/HCPCS: 0241U; 36415; 71046; 80048; 80076; 83735; 83880; 84484; 85025; 87040; 93005; 94640; 96374; 99284; 99285; J2919

== ENCOUNTER → 2024-07-17 15:44 | Outpatient (BNV) | payer OTHER, SELFPAY | PROVIDERS: Emergency Provider Emergency Medicine; PCP Nurse Practitioner Primary Care; Visit Provider Radiology Diagnostic Radiology | DX: R05.9 Cough, unspecified (principal) | CPT/HCPCS: 71046 ==

== ENCOUNTER → 2024-07-17 18:15 | Outpatient (BNV) | payer OTHER, SELFPAY | PROVIDERS: Emergency Provider Emergency Medicine; PCP Nurse Practitioner Primary Care; Visit Provider Internal Medicine | DX: R06.02 Shortness of breath (principal) | CPT/HCPCS: 93010 ==

== ENCOUNTER 2024-09-17 11:00 | Emergency (ER) | payer OTHER, SELFPAY ==
[2024-09-17] VITALS (7 sets, daily range): BP systolic 124–131; BP diastolic 60–67; PULSE 73–93; RESP 18–27; TEMP 36.4–36.5; O2SAT 93–96; BMI 33.3
--- NOTE | 2024-09-17 | ECG_ITS ---
Test Reason : weakness Blood Pressure : */* mmHG Vent. Rate : 82 BPM Atrial Rate : 82 BPM P-R Int : 134 ms QRS Dur : 108 ms QT Int : 396 ms P-R-T Axes : 41 -10 74 degrees QTcB Int : 462 ms Normal sinus rhythm Normal ECG When compared with ECG of 17-Jul-2024 19:01, No significant change was found Referred By: Generic ED Physician Electronically Signed By: EDWIN BARRIENTOS
--- NOTE | ~2024-09-17 | XR_ITS ---
EXAMINATION: XR CHEST CLINICAL INFORMATION: shortness of breath COMPARISON: 07/17/2024, 07/08/2024. TECHNIQUE: Frontal view of the chest was obtained. FINDINGS: The cardiac, hilar, and mediastinal contours are normal. Lungs demonstrate increased patchy opacity in the right base, suspicious for pneumonia. Left lung is clear. No pneumothorax or effusion. No focal osseous or soft tissue abnormality. XR/XR chest 1V IMPRESSION: Right base pneumonia suspected. No effusion. Electronically signed by: Aldo Headley MD 09/17/2024 11:59 AM [facility]
--- NOTE | 2024-09-17 11:22 | ED_ITS ---
HPI - General Adult General Chief complaint: Dyspnea Stated complaint: Chest Tightness, Cough Time Seen by Provider: 09/17/24 17:27 Source: patient Mode of arrival: ambulatory Limitations: no limitations History of Present Illness ED Provider: Dr. Johana Almeida HPI narrative: Patient comes to the emergency room complaining of dry cough and chest tightness for about 1 week. Patient states that he has history of asthma. History he went to dialysis and he was informed by his dialysis nurse that he had a fever. Patient states that he feels a bit wheezy. Patient denies any chest pain, no abdominal pain. Related Data Home Medications ?Medication ?Instructions ?Recorded ?Confirmed furosemide 40 mg tablet 1 tab PO QAM 02/17/21 02/17/21 calcitriol 0.25 mcg capsule 0.25 mcg PO Q OTHER DAY 05/05/21 blood sugar diagnostic (FreeStyle #10 ea 03/16/22 Lite Strips) calcium 600 mg (as 2 tab PO QAM 03/16/22 carbonate)-vitamin D3 10 mcg (400 unit) tablet carvedilol 6.25 mg tablet 6.25 mg PO 03/16/22 insulin detemir U-100 100 unit/mL 40 unit subcut DAILY 03/16/22 (3 mL) subcutaneous pen (Levemir FlexTouch U-100 Insulin) insulin syringe-needle U-100 0.5 #10 ea 03/16/22 mL 31 gauge x 5/16 (TRUEplus Insulin) lancets 33 gauge (TRUEplus Lancets) #100 ea 03/16/22 pen needle, diabetic 31 gauge x #50 ea 03/16/22 1/4 (UltiCare Pen Needle) Previous Rx's ?Medication ?Instructions ?Recorded acetaminophen 325 mg tablet 325 mg PO Q4H PRN Pain #30 tabs 02/20/21 albuterol sulfate 90 mcg/actuation 2 puff inhalation QID PRN 02/20/21 aerosol inhaler Shortness Of Breath Or Wheezing #8.5 grams aspirin 81 mg tablet,delayed 81 mg PO QAM #30 tabs 02/20/21 release atorvastatin 10 mg tablet 10 mg PO BEDTIME #30 tabs 02/20/21 ferrous sulfate 325 mg (65 mg 325 mg PO DAILY #30 tabs 02/20/21 iron) tablet fluticasone propionate 50 2 spray intranasal DAILY PRN 02/20/21 mcg/actuation nasal Allergy Symptoms #16 grams spray,suspension tamsulosin 0.4 mg capsule 0.4 mg PO BEDTIME #30 caps 02/20/21 oxycodone 5 mg tablet 5 mg PO Q6H PRN pain #7 tabs 06/20/24 acetaminophen 325 mg tablet 650 mg (2 x 325 mg) PO Q6H PRN 07/17/24 (Tylenol) pain #20 tabs prednisone 20 mg tablet 40 mg (2 x 20 mg) PO DAILY 5 days 07/17/24 #10 tabs albuterol sulfate 90 mcg/actuation 2 puff inhalation Q4-6H PRN 09/17/24 aerosol inhaler shortness of breath or wheezing #8.5 grams azithromycin 250 mg tablet 250 mg PO DAILY 4 days #4 tabs 09/17/24 cefuroxime axetil 500 mg tablet 500 mg PO BID #14 tabs 09/17/24 prednisone 50 mg tablet 50 mg PO DAILY #4 tabs 09/17/24 Allergies Allergy/AdvReac Type Severity Reaction Status Date / Time No Known Allergies Allergy Verified 09/17/24 11:34 [No Known Allergies*] Review of Systems 2 Review of Systems: Constitutional : No Weight loss, No Fever, No Chills, No Night Sweats, No Fatigue, No Malaise ENT/Mouth : No Hearing loss, No Ear Pain, No Nasal Congestion, No Sinus Pain, No Hoarseness, No sore throat, No Rhinorrhea, No Swallowing Difficulty Eyes: No Eye Pain, No Swelling, No Redness, No Foreign Body, No Discharge, No Vision Changes Cardiovascular : No Chest Pain, No SOB, No Dyspnea on Exertion, No Orthopnea, No Edema, No Palpitations Respiratory : Complaining of dry cough, wheezing, chest tightness with no pain Gastrointestinal : No Nausea, No Vomiting, No Diarrhea, No Constipation, No abdominal Pain, No Hematochezia, No Melena Genitourinary : no irregular bleeding, No Dysuria, No Urinary Frequency, No Hematuria, No Urinary Incontinence, No Urgency, No Flank Pain, No Urinary Flow Changes, No Hesitancy Musculoskeletal : No joint pain, No Myalgias, No Joint Swelling Skin : No Skin Lesions, No rash Neuro : No Weakness, No Numbness, No Paresthesias, No Loss of Consciousness, No Dizziness, No Headache Psych : No Anxiety/Panic, No Depression, No SI/HI/AH/VH, No Social Issues, Heme/Lymph: No Bruising, No Bleeding,No Lymphadenopathy Endocrine : No Polyuria, No Polydipsia, No Temperature Intolerance [facility] Past Medical History Medical History Asthma Kidney disease Hypertension Diabetes Surgical History Hx of colonoscopy Family History Family History Sister Diabetes Social History Social History (Updated 02/08/24 @ 09:16 by Diane Saul) Household Members: Friend(s) Housing: Apartment Do you presently have visiting nurse or other home services: No Alcohol intake: never Patient Tobacco Use Status: Never used Tobacco Smoked in Last 30 Days: No e-Cigarette/Vaping Use: Never Used Use of substances other than those prescribed or required for medical reasons: No Advance Directives: No Advance Directives Information Provided: No Do you have a plan to hurt others: No Plan service: No Current occupational status: disabled 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 Oriented X3. No acute distress. Eyes: Pupils equal, round and reactive to light. ENT: Pharynx normal. Neck: Normal inspection. Neck supple. No lymph nodes noted. No crepitus CVS: Normal heart rate and rhythm. Pulses normal. Normal S1 and S2 Respiratory: No respiratory distress. Bilateral wheezing, no rales or crackles Abdomen: Soft and nontender. No rigidity. No distention. Skin: Skin warm and clammy. Normal skin color. Normal skin turgor. Extremities: No lower extremity edema. No Lacerations. No Rash Neuro: Oriented X 3. No motor deficit. No sensory deficit. Moving all extremities. No slurred speech. CN 2 through 12 grossly intact Psych: calm, cooperative, normal affect Course Course Course Narrative: RME, this is a rapid medical exam performed by Silas Rush please refer to primary provider for complete H&P- 74-year-old male with past medical history significant for end-stage renal disease on home dialysis, COPD presents for evaluation of shortness of breath and cough for the last week. He reports his cough was about a week ago but his shortness of breath has been getting worse over the last couple of days. He called his kier drier today as he has not been feeling well with his dialysis. He was given an appointment today but missed it as he had no transportation. He was somewhat wheezy on exam. Vital signs are stable. Plan for viral testing, chest x-ray, labs. Medications Administered Discontinued Medications Generic Name Dose Route Start Last Admin Trade Name Freq PRN Reason Stop Dose Admin Albuterol Sulfate 5 mg/ 7.5 mg 09/17/24 17:52 09/17/24 17:56 Albuterol Sulfate 2.5 mg INHALE 09/17/24 17:53 7.5 mg ONCE ONE Administration Ceftriaxone Sodium 1 gm 09/17/24 17:36 09/17/24 18:15 Ceftriaxone Sodium 1 Gm Vial IVPUSH 09/17/24 17:37 1 gm ONCE ONE Administration Albuterol Sulfate 2.5 mg/ 0 mg 09/17/24 13:08 09/17/24 13:12 Albuterol/Ipratropium 3 ml INHALE 09/17/24 13:09 5 dose ONCE ONE Administration Magnesium Sulfate 2 gm in 50 mls @ 25 mls/hr 09/17/24 17:36 09/17/24 19:54 Magnesium Sulfate/H2o IV 09/17/24 19:35 Infused ONCE ONE Infusion Azithromycin 500 mg/ Sodium 250 mls @ 125 mls/hr 09/17/24 17:36 09/17/24 18:21 Chloride IV 09/17/24 19:35 125 mls/hr ONCE ONE Administration Methylprednisolone Sodium Succinate 125 mg 09/17/24 17:36 09/17/24 18:09 Methylprednisolone Sod Succ 125 Mg/2 Ml Vial IVPUSH 09/17/24 17:37 125 mg ONCE ONE Administration Medical Decision Making Medical Decision Making [facility] Narrative: My interpretation of EKG: Normal sinus rhythm, heart rate 82, no ST segment depression or elevation, no T-wave inversion, QTC 462 My interpretation of labs: Patient's hematology at baseline, chemistry shows an elevated BUN and creatinine, but it is the baseline for the patient, troponin at baseline, normal BNP, serology positive for influenza A, negative for RSV and COVID, lactic acid 1.0 Chest x-ray: Right lower lobe pneumonia Currently, patient's vitals stable, blood pressure 125/67, heart rate 81, oxygen saturation 95% on room air. At this time, patient receiving a nebulization treatment, Solu-Medrol, magnesium, and the 1st dose of antibiotics including ceftriaxone and azithromycin. At this time, we will not administer fluids. Sepsis not suspected. Differential Diagnosis Differential Diagnoses: The differential diagnosis associated with the presentation includes (Asthma, influenza, COVID, RSV, pneumonia) Admission/Observation Consideration of admission/observation: Escalation of care including admission/observation considered (Given the patient's age, symptoms in labs, observation was considered) Lab Data [facility] Lab Attestation statement: I reviewed the patient's lab results. 09/17/24 12:38 09/17/24 12:38 Labs: Lab Results 09/17/24 09/17/24 09/17/24 Range/Units 11:16 12:38 17:51 WBC 9.8 (4.8-10.8) X10*3/uL RBC 3.38 L (4.60-5.80) X10*6/uL Hgb 10.2 L (14.0-18.0) g/dl Hct 30.7 L (42.0-52.0) % MCV 90.8 (80.0-98.0) fL MCH 30.2 (27.0-33.0) pg MCHC 33.2 (31.0-36.0) g/dl RDW 15.8 (11.0-16.0) % Plt Count 191 (160-400) X10*3/uL MPV 9.8 (9.4-12.4) fL Immature Gran % (Auto) Cancelled Neut % (Auto) Cancelled Lymph % (Auto) Cancelled Ashe % (Auto) Cancelled Eos % (Auto) Cancelled Baso % (Auto) Cancelled Lymph # (Auto) Cancelled Ashe # (Auto) Cancelled Eos # (Auto) Cancelled Baso # (Auto) Cancelled Abs Immat Gran (auto) Cancelled Absolute Neuts (auto) Cancelled Absolute Nucleated RBC 0.000 (0.0-0.012) X10*3/uL Nucleated RBC % (auto) 0.0 (0.0-0.2) /100WBC Neutrophils % (Manual) 57 (45-73) % Band Neutrophils % 2 L (3-5) % Lymphocytes % (Manual) 31 (20-40) % Monocytes % (Manual) 2 (2-11) % Eosinophils % (Manual) 5 H (0-4) % Metamyelocytes % 3 % Abs Neuts (Manual) 5.8 (2.0-8.3) X10*3/uL Lymphocytes # (Manual) 3.0 (1.2-4.9) X10*3/uL Monocytes # (Manual) 0.2 (0.1-1.2) X10*3/uL Eosinophils # (Manual) 0.5 H (0.0-0.4) X10*3/uL Metamyelocytes # 0.3 X10*3/uL Platelet Estimate NORMAL (NORMAL) Plt Morphology Comment NORMAL RBC Morphology NOTED Polychromasia 1+ (0-2) /OIF Sodium 132 L (135-145) mmol/L Potassium 3.9 (3.3-5.1) mmol/L Chloride 94 L (96-108) mmol/L Carbon Dioxide 24 (22-29) mmol/L Anion Gap 18 (12-20) BUN 73 H (9-16) mg/dL Creatinine 10.57 H* (0.5-1.4) mg/dL Estim Creat Clear Calc 6.6 Estimated GFR 5 POC Glucose (60-115) mg/dL Random Glucose 140 H (60-115) mg/dL Lactic Acid 1.1 (0.5-2.0) mmol/L Calcium 7.5 L D (8.4-10.2) mg/dL Magnesium 1.9 (1.6-2.6) mg/dL Total Bilirubin 0.5 (0.0-1.0) mg/dL AST 29 (5-37) U/L ALT 37 (0-40) U/L Alkaline Phosphatase 63 (39-117) U/L Troponin I High Sens 30.2 (<3.5-35.0) ng/L B-Natriuretic Peptide 61 (<100) pg/mL Total Protein 6.5 (6.5-8.0) g/dL Albumin 3.4 L (3.5-5.0) g/dL Lipase 104 H (8-78) U/L Influenza Type A (PCR) POSITIVE A (Negative) Influenza Type B (PCR) NEGATIVE (Negative) RSV RNA Qual (PCR) NEGATIVE (Negative) SARS-CoV-2 RNA (RT-PCR) NEGATIVE (Negative) 09/17/24 09/17/24 Range/Units 18:11 18:44 WBC (4.8-10.8) X10*3/uL RBC (4.60-5.80) X10*6/uL Hgb (14.0-18.0) g/dl Hct (42.0-52.0) % MCV (80.0-98.0) fL MCH (27.0-33.0) pg MCHC (31.0-36.0) g/dl RDW (11.0-16.0) % Plt Count (160-400) X10*3/uL MPV (9.4-12.4) fL Immature Gran % (Auto) Neut % (Auto) Lymph % (Auto) Ashe % (Auto) Eos % (Auto) Baso % (Auto) Lymph # (Auto) Ashe # (Auto) Eos # (Auto) Baso # (Auto) Abs Immat Gran (auto) Absolute Neuts (auto) Absolute Nucleated RBC (0.0-0.012) X10*3/uL Nucleated RBC % (auto) (0.0-0.2) /100WBC Neutrophils % (Manual) (45-73) % Band Neutrophils % (3-5) % Lymphocytes % (Manual) (20-40) % Monocytes % (Manual) (2-11) % Eosinophils % (Manual) (0-4) % Metamyelocytes % % Abs Neuts (Manual) (2.0-8.3) X10*3/uL Lymphocytes # (Manual) (1.2-4.9) X10*3/uL Monocytes # (Manual) (0.1-1.2) X10*3/uL Eosinophils # (Manual) (0.0-0.4) X10*3/uL Metamyelocytes # X10*3/uL Platelet Estimate (NORMAL) Plt Morphology Comment RBC Morphology Polychromasia /OIF Sodium (135-145) mmol/L Potassium (3.3-5.1) mmol/L Chloride (96-108) mmol/L Carbon Dioxide (22-29) mmol/L Anion Gap (12-20) BUN (9-16) mg/dL Creatinine (0.5-1.4) mg/dL Estim Creat Clear Calc Estimated GFR POC Glucose 66 120 H (60-115) mg/dL Random Glucose (60-115) mg/dL Lactic Acid (0.5-2.0) mmol/L Calcium (8.4-10.2) mg/dL Magnesium (1.6-2.6) mg/dL Total Bilirubin (0.0-1.0) mg/dL AST (5-37) U/L ALT (0-40) U/L Alkaline Phosphatase (39-117) U/L Troponin I High Sens (<3.5-35.0) ng/L B-Natriuretic Peptide (<100) pg/mL Total Protein (6.5-8.0) g/dL Albumin (3.5-5.0) g/dL Lipase (8-78) U/L Influenza Type A (PCR) (Negative) Influenza Type B (PCR) (Negative) RSV RNA Qual (PCR) (Negative) SARS-CoV-2 RNA (RT-PCR) (Negative) Independent Interpretation I performed an independent interpretation of an: EKG and Plain X-Ray Radiology Impression Discussion of test interpretation with radiology: I have reviewed the radiologist's reading. Radiologist Impression: Lungs demonstrate increased patchy opacity in the right base, suspicious for pneumonia. Left lung is clear. No pneumothorax or effusion. No focal osseous or soft tissue abnormality. Critical Care Time Critical Care Time Critical Care Time: Yes Total Critical Care Time: 60 Attestation: I have personally provided critical care time. Time includes review of lab data, radiology results, discussion with consultants, and monitoring for potential decompensation. Intervention performed as documented. Discharge Plan Discharge Clinical Impression: Influenza A, Pneumonia Patient Disposition: Home, Self-Care Instructions: Influenza (ED), Pneumonia (ED) Additional Instructions: Please follow-up with your primary care physician tomorrow. If you have any worsening or new symptoms, please return to the emergency room or call 911 Prescriptions: New cefuroxime axetil 500 mg tablet 500 mg PO BID Qty: 14 0RF azithromycin 250 mg tablet 250 mg PO DAILY 4 Days Qty: 4 0RF Rx Instructions: start on day 2 of therapy prednisone 50 mg tablet 50 mg PO DAILY Qty: 4 0RF albuterol sulfate 90 mcg/actuation HFA aerosol inhaler 2 puff inhalation Q4-6H PRN (Reason: shortness of breath or wheezing) Qty: 8.5 1RF No Action furosemide 40 mg tablet 1 tab PO QAM acetaminophen 325 mg tablet 325 mg PO Q4H PRN (Reason: Pain) Qty: 30 0RF atorvastatin 10 mg tablet 10 mg PO BEDTIME Qty: 30 0RF aspirin 81 mg tablet,delayed release (DR/EC) 81 mg PO QAM Qty: 30 0RF tamsulosin 0.4 mg capsule 0.4 mg PO BEDTIME Qty: 30 0RF ferrous sulfate 325 mg (65 mg iron) tablet 325 mg PO DAILY Qty: 30 0RF albuterol sulfate 90 mcg/actuation HFA aerosol inhaler 2 puff inhalation QID PRN (Reason: Shortness Of Breath Or Wheezing) Qty: 8.5 0RF fluticasone propionate 50 mcg/actuation spray,suspension 2 spray intranasal DAILY PRN (Reason: Allergy Symptoms) Qty: 16 0RF oxycodone 5 mg tablet 5 mg PO Q6H PRN (Reason: pain) Qty: 7 0RF Rx Instructions: Partial Fill upon patient request. prednisone 20 mg tablet 40 mg PO DAILY 5 Days Qty: 10 0RF acetaminophen [Tylenol] 325 mg tablet 650 mg PO Q6H PRN (Reason: pain) Qty: 20 0RF calcitriol 0.25 mcg capsule 0.25 mcg PO Q OTHER DAY (DME) lancets [TRUEplus Lancets] 33 gauge misc See Rx Instructions .ROUTE TID Qty: 100 Rx Instructions: As directed (DME) FreeStyle Lite Strips Strip See Rx Instructions Not Applicable .MEDSUPPLY Qty: 10 Rx Instructions: As directed Levemir FlexTouch U100 Insulin 100 unit/mL (3 mL) insulin pen 40 unit subcut DAILY carvedilol 6.25 mg tablet 6.25 mg PO (DME) pen needle, diabetic [UltiCare Pen Needle] 31 gauge x 1/4 needle See Rx Instructions .ROUTE DAILY Qty: 50 Rx Instructions: As directed calcium carbonate-vitamin D3 600 mg-10 mcg (400 unit) tablet 2 tab PO QAM (DME) insulin syringe-needle U-100 [TRUEplus Insulin] 0.5 mL 31 gauge x 5/16 syringe See Rx Instructions .ROUTE DAILY Qty: 10 Rx Instructions: As directed Print Language: Kazakh
[2024-09-17 12:02] LABS: Influenza A PCR POSITIVE (Negative); Influenza B PCR NEGATIVE (Negative); Resp Syncy Virus RNA Qual PCR NEGATIVE (Negative); SARS COV2 PCR INHOUSE NEGATIVE (Negative)
[2024-09-17 13:02] LABS: Hematocrit 30.7 % (42.0-52.0); Hemoglobin 10.2 g/dl (14.0-18.0); Mean Corpuscular HGB Conc 33.2 g/dl (31.0-36.0); Mean Corpuscular Hemoglobin 30.2 pg (27.0-33.0); Mean Corpuscular Volume 90.8 fL (80.0-98.0); Mean Platelet Volume 9.8 fL (9.4-12.4); Platelet Count 191 X10*3/uL (160-400); Red Blood Count 3.38 X10*6/uL (4.60-5.80); Red Cell Distribution Width 15.8 % (11.0-16.0); White Blood Count 9.8 X10*3/uL (4.8-10.8)
[2024-09-17] MEDS: Albuterol Sulfate 2.5 MG, Albuterol/Iprat 2.5/0.5MG 3 ML 3 ML INHALE (13:12)
[2024-09-17 13:22] LABS: Alanine Aminotransferase 37 U/L (0-40); Albumin Level 3.4 g/dL (3.5-5.0); Alkaline Phosphatase 63 U/L (39-117); Anion Gap 18 (12-20); Aspartate Amino Transferase 29 U/L (5-37); Bilirubin Total 0.5 mg/dL (0.0-1.0); Blood Urea Nitrogen 73 mg/dL (9-16); Calcium 7.5 mg/dL (8.4-10.2); Carbon Dioxide 24 mmol/L (22-29); Chloride 94 mmol/L (96-108); Glucose Random 140 mg/dL (60-115); Lipase 104 U/L (8-78); Magnesium 1.9 mg/dL (1.6-2.6); Potassium 3.9 mmol/L (3.3-5.1); Sodium 132 mmol/L (135-145); Total Protein 6.5 g/dL (6.5-8.0)
[2024-09-17 13:23] LABS: Creatinine Clr Calc Pharmacy 6.6; Estimated Glomerular Filt Rate 5
[2024-09-17 13:24] LABS: B Type Natriuretic Peptide 61 pg/mL (<100)
[2024-09-17 13:26] LABS: Band Neutrophils Percent 2 % (3-5); Eosinophils Absolute Manual 0.5 X10*3/uL (0.0-0.4); Eosinophils Percent Manual 5 % (0-4); Lymphocytes Percent Manual 31 % (20-40); Metamyelocytes Absolute 0.3 X10*3/uL; Metamyelocytes Percent 3 %; Monocytes Absolute Manual 0.2 X10*3/uL (0.1-1.2); Monocytes Percent Manual 2 % (2-11); Neutrophils Absolute Manual 5.8 X10*3/uL (2.0-8.3); Neutrophils Percent Manual 57 % (45-73); Troponin-I High Sensitivity 30.2 ng/L (<3.5-35.0)
[2024-09-17 13:30] LABS: Platelet Estimate NORMAL (NORMAL); Platelet Morphology Comment NORMAL; Polychromasia 1+ (0-2) /OIF; RBC Morphology NOTED
[2024-09-17] MEDS: Albuterol Sulfate 5 MG, Albuterol Sulfate (0.083%) 2.5 MG 7.5 MG INHALE (17:56)
[2024-09-17] MEDS: methylPREDNISolone Sod Succ 125 MG/2 ML VIAL IVPUSH (18:09)
[2024-09-17 18:11] LABS: Lactic Acid 1.1 mmol/L (0.5-2.0)
[2024-09-17] MEDS: cefTRIAXone sodium 1 GM VIAL IVPUSH (18:15)
[2024-09-17] MEDS: Magnesium Sulfate/H2O 2 GM/50 ML PIGGYBACK IV (18:17)
[2024-09-17 18:21] LABS: Glucose, Whole Blood 66 mg/dL (60-115)
[2024-09-17] MEDS: Azithromycin 500 MG in 0.9 % Sodium Chloride 250 ML 125 MG IV (18:21)
--- NOTE | 2024-09-17 18:30 | PC.NURSE ---
Pt reporting his BGL feels low, requests us to check. Noed to be 66. Pt given two glasses of juice with sugar, will reassess. Pt remains alert and oriented with stable vitals.
[2024-09-17 18:48] LABS: Glucose, Whole Blood 120 mg/dL (60-115)
== END 2024-09-17 21:08 | disposition home or self-care (01) ==
PROVIDERS: Physician Assistant; Emergency Provider Emergency Medicine; PCP Nurse Practitioner Primary Care
DX: J10.1 Influenza due to other identified influenza virus with other respiratory manifestations (principal); J18.9 Pneumonia, unspecified organism; R50.9 Fever, unspecified; E11.22 Type 2 diabetes mellitus with diabetic chronic kidney disease; I12.0 Hypertensive chronic kidney disease with stage 5 chronic kidney disease or end stage renal disease; N18.6 End stage renal disease; N17.9 Acute kidney failure, unspecified; Z99.2 Dependence on renal dialysis; J45.909 Unspecified asthma, uncomplicated; Z03.818 Encounter for observation for suspected exposure to other biological agents ruled out; Z79.4 Long term (current) use of insulin; Z79.82 Long term (current) use of aspirin
CPT/HCPCS: 0241U; 36415; 71045; 80053; 82947; 83605; 83690; 83735; 83880; 84484; 85007; 85025; 85027; 87040; 93005; 94640; 96365; 96366; 96367; 96375; 99285; J0456; J0696; J2919; J3475

== ENCOUNTER → 2024-09-17 11:14 | Outpatient (BNV) | payer OTHER, SELFPAY | PROVIDERS: Emergency Provider Emergency Medicine; PCP Nurse Practitioner Primary Care; Visit Provider Internal Medicine | DX: R07.89 Other chest pain (principal); R53.1 Weakness | CPT/HCPCS: 93010 ==

== ENCOUNTER → 2024-09-17 11:23 | Outpatient (BNV) | payer OTHER, SELFPAY | PROVIDERS: PCP Nurse Practitioner Primary Care; Visit Provider Radiology Diagnostic Radiology | DX: J09.X2 Influenza due to identified novel influenza A virus with other respiratory manifestations (principal); J18.9 Pneumonia, unspecified organism | CPT/HCPCS: 71045 ==